=== PATIENT | female | born 1940 | race Caucasian/White ===

== ENCOUNTER → 2016-05-17 | Outpatient (REF) | payer MEDICARE, OTHER ==
[2016-05-17 12:40] LABS: FREE T4 1.37 NG/DL (0.76-1.46)
== END ==
LOC: M LABDRAW1 11:35
PROVIDERS: ATTEND Family Medicine
DX: E03.9 Hypothyroidism, unspecified (principal)

== ENCOUNTER → 2016-06-30 | Outpatient (REF) | payer MEDICARE, OTHER ==
[2016-06-30 10:48] LABS: FREE T4 0.95 NG/DL (0.76-1.46)
== END ==
LOC: M LABDRAW1 10:04
PROVIDERS: ATTEND Family Medicine
DX: E03.9 Hypothyroidism, unspecified (principal)

== ENCOUNTER → 2016-08-19 | Outpatient (REF) | payer MEDICARE, OTHER | LOC: M LAB REF 13:59 | PROVIDERS: ATTEND Physician Assistant | DX: R30.0 Dysuria (principal); R07.0 Pain in throat ==

== ENCOUNTER → 2016-09-08 | Outpatient (REF) | payer MEDICARE, OTHER ==
[2016-09-08 11:11] LABS: FREE T4 1.69 NG/DL (0.76-1.46)
== END ==
LOC: M LABDRAW1 10:37
PROVIDERS: ATTEND Family Medicine
DX: E03.9 Hypothyroidism, unspecified (principal)

== ENCOUNTER → 2016-11-05 | Outpatient (REF) | payer MEDICARE, OTHER ==
[~2016-11-05] MED LIST: ALPH0.156 OU; ASPI1TAB PO; ASPI81TAEC PO; ATOR40TA75 PO; D 101TAB PO; DIGO0.12 PO; FOLI1TAB4 PO; LEVO100T5 PO; THIA100TA PO; TRAV04OPD OU; VERAP80TA PO; VITA200015 PO; VITMTA PO; ZYRT10TA2 PO
[2016-11-05 15:58] LABS: FREE T4 1.32 NG/DL (0.76-1.46)
== END ==
LOC: M LABDRAW1 12:09
PROVIDERS: ATTEND Family Medicine
DX: E03.9 Hypothyroidism, unspecified (principal)

== ENCOUNTER 2016-12-09 01:51 | Inpatient (IN) | payer MEDICARE, BC, OTHER ==
[~2016-12-09] VITALS: Ht 156.2 cm; Wt 58.9 kg
[2016-12-09] MEDS ORDERED: ALPH0.156 OU (02:12)
[2016-12-09] MEDS ORDERED: TRAV04OPD OU (02:12)
[2016-12-09] MEDS ORDERED: ATOR40TA75 PO (02:12)
[2016-12-09] MEDS ORDERED: VITA200015 PO (02:12)
[2016-12-09] MEDS ORDERED: DIGO0.12 PO (02:12)
[2016-12-09] MEDS ORDERED: LEVO100T5 PO (02:12)
[2016-12-09] MEDS ORDERED: VERAP80TA PO (02:12)
[2016-12-09] MEDS ORDERED: ZYRT10TA2 PO (02:12)
[2016-12-09] MEDS ORDERED: ASPI1TAB PO (02:12)
[2016-12-09] MEDS ORDERED: MORPHINE 4 MG/ML 1ML SYRINGE IV ONE ×2 (03:15→07:15)
[2016-12-09] MEDS ORDERED: NS 1,000 ML IV ONE (03:15)
[2016-12-09] MEDS ORDERED: METOCLOPRAMIDE INJ 10MG/2ML VIAL (J2765) IV ONE (03:15)
[2016-12-09 03:26] LABS: BASO % 0.1 % (0.0-1.0); EOS % 0.3 % (0.0-3.0); LARGE UNSTAINED CELL # 0.1 K/mm3 (0.0-0.4); LARGE UNSTAINED CELL % 0.4 % (0.0-4.0); LYMPH # 0.6 K/mm3 (1.5-4.5); LYMPH % 3.8 % (24.0-44.0); MEAN CORPUSCULAR HEMOGLOBIN 34.4 pg (27.0-33.0); MEAN CORPUSCULAR HGB CONC 34.8 g/dl (32.0-36.5); MEAN CORPUSCULAR VOLUME 98.7 fl (80.0-96.0); MONO # 0.6 K/mm3 (0.0-0.8); MONO % 3.8 % (0.0-5.0); NEUTROPHILS % 91.6 % (36.0-66.0); PLATELET COUNT, AUTOMATED 206 k/mm3 (150-450); RED CELL DISTRIBUTION WIDTH 14.6 % (11.5-14.5); WHITE BLOOD COUNT 15.3 K/mm3 (4.0-10.0)
[2016-12-09 03:30] LABS: INR 1.01
[2016-12-09 03:39] LABS: ALKALINE PHOSPHATASE 114 U/L (45-117); ALT/SGPT 121 U/L (12-78); AST/SGOT 152 U/L (15-37); BILIRUBIN,DIRECT 0.4 MG/DL (0.0-0.2); BILIRUBIN,TOTAL 1.1 MG/DL (0.2-1.0); BLOOD UREA NITROGEN 25 MG/DL (7-18); CALCIUM LEVEL 9.4 MG/DL (8.8-10.2); CHLORIDE LEVEL 101 MEQ/L (98-107); CREATININE FOR GFR 0.94 MG/DL (0.55-1.02); GLUCOSE, FASTING 154 MG/DL (83-110); POTASSIUM SERUM 3.9 MEQ/L (3.5-5.1); SODIUM LEVEL 142 MEQ/L (136-145); TOTAL PROTEIN 7.5 GM/DL (6.4-8.2)
[2016-12-09 03:59] LABS: AMYLASE 2422 U/L (25-115)
[2016-12-09] MEDS ORDERED: ISOVUE-370 76% 100ML VIAL (Q9967) As Ordered ONE (04:53)
[2016-12-09] MEDS ORDERED: D 101TAB PO (05:40)
[2016-12-09] MEDS ORDERED: ASPI81TAEC PO (05:40)
[2016-12-09 05:45] LABS: ALBUMIN 3.7 GM/DL (3.2-5.2); ALBUMIN/GLOBULIN RATIO 0.97 (1.00-1.93); ANION GAP 11 MEQ/L (8-16); CARBON DIOXIDE LEVEL 30 MEQ/L (21-32)
--- NOTE | 2016-12-09 05:50 | REPUSA ---
CLINICAL HISTORY: Abdominal pain. TECHNIQUE: Multiple axial, sagittal and coronal CT images were obtained through the abdomen and pelvi s after administration of intravenous contrast material. COMMENTS: Comparison is made to the prior exam performed on 03/13/2006. The liver remains moderately enlarged with decreased attenuation without mass or defect. There ismild biliary ductal dilatation. The spleen is normal. The gallbladder is diffusely thickened and distende d. There is surrounding free fluid and inflammatory fat stranding. Sludge and gallstones are noted in the gallbladder. Peripancreatic inflammatory fat stranding is seen. There is no evidence of adrenal mass. Both kidneys demonstrate prompt and equal nephrograms. The kidneys are normal in size, shape and conf iguration. There is no evidence of renal or ureteral mass. No renal or ureteral calculi are identifie d. There is no hydroureter or hydronephrosis. No evidence for appendicitis. There is no bowel wall thickening. No evidence for small or large felicitas l obstruction. There is no evidence of intrinsic or extrinsic bladder mass. Diffuse thickening of the wall of the bl adder. Images of the lung bases show no evidence of pleural or parenchymal mass. There are no pleural effusi ons. The bony structures are free of lytic or blastic lesions. Multilevel degenerative changes are seen in volving the thoracolumbar spine. Scattered calcifications are seen involving the aorta and major bran ches compatible with atherosclerosis. Metallic clips in the inguinal areas. 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 Unremarkable aortoiliac stent grafts. IMPRESSION: Hepatomegaly. Fatty liver infiltration. Distended gallbladder containing sludge and stones. Diffuse thickening of the wall of the gallbladder. Surrounding inflammatory fat stranding. Acute pancreatitis. No associated drainable fluid collection. Thank you for your kind referral of this patient.
[2016-12-09] MEDS: HEPARIN SOD (PORCINE) 5000 UNITS/ML VIAL SC SCH ×3 (06:00→21:16)
[2016-12-09] MEDS ORDERED: SODIUM CHLORIDE 0.9% 1000 ML IV ONE (07:45)
[2016-12-09] MEDS ORDERED: NS 1,000 ML IV SCH (08:00)
[2016-12-09 08:15] LABS: DIGOXIN LEVEL 0.1 NG/ML (0.5-2.0)
--- NOTE | 2016-12-09 08:25 | REP ---
Right upper quadrant ultrasound: 12/09/2016. Right upper quadrant pain, biliary evaluation. Comparison: 01/22/2013. Findings. Liver is homogeneous in echotexture without focal hepatic mass, intrahepatic biliary dilatation nor perihepatic ascites. The gallbladder with multiple mobile stones with sludge. A sonographic Mancini's sign evident. Wall thickness is 2.3 mm. No pericholecystic fluid. Common duct is 6.9 mm which is upper end of the normal range for this age group. Pancreas visible, was grossly intact. The tail is obscured by gas shadowing. Right kidney is 9.1 x 4 x 3.9 cm without hydronephrosis. Impression: 1. Cholelithiasis and biliary sludge with mobile stones. A positive sonographic Mancini's sign is present. 2. Common duct 6.9 mm without filling defect and no intrahepatic ductal dilatation. Liver grossly unremarkable. No ascites. 3. Visible pancreas and right kidney unremarkable. Signed by Riccardo Gilbert MD 12/09/2016 06:25 P
[2016-12-09] MEDS ORDERED: NORCO, ANEXSIA 5/325MG TABLET (HYDROcodone/ACETAMINOPHEN) PO PRN (08:30)
[2016-12-09] MEDS ORDERED: ONDANSETRON 4MG/2ML VIAL (J2405) IV PRN (08:30)
[2016-12-09] MEDS ORDERED: MOM 30ML SUSPENSION UDC PO PRN (08:30)
[2016-12-09] MEDS ORDERED: MORPHINE 2 MG/ML 1ML SYRINGE IV PRN (08:30)
[2016-12-09] MEDS ORDERED: KETOROLAC 30 MG/ML VIAL (J1885) IV PRN (08:30)
[2016-12-09] MEDS ORDERED: THIAMINE HCL 200 MG/2 ML VIAL (J3411) IV SCH (09:00)
[2016-12-09] MEDS: BRIMONIDINE 0.15% OPHTH SOLN 5 ML OU SCH ×2 (09:00→21:00)
[2016-12-09] MEDS: SENOKOT S TAB PO SCH ×2 (09:00→21:15)
[2016-12-09] MEDS: KCL 20MEQ IN D5/0.45NS 1000ML 1,000 ML IV SCH ×3 (10:07→22:44)
[2016-12-09] MEDS: metroNIDAZOLE 500 MG in APPROPRIATE DILUENT 1 EA IV SCH ×2 (10:08→16:41)
[2016-12-09 10:40] VITALS: BP 138/62
[2016-12-09] MEDS: CIPROFLOXACIN 400 MG in APPROPRIATE DILUENT 1 EA IV SCH ×2 (12:05→21:16)
[2016-12-09] MEDS: PANTOPRAZOLE 40MG INJ (PROTONIX) (C9113) IV SCH (12:05)
[2016-12-09] MEDS: VERAPAMIL 80 MG TAB PO SCH ×4 (12:07→21:15)
[2016-12-09] MEDS: ASPIRIN 81 MG ENTERIC TAB PO SCH (12:07)
[2016-12-09] MEDS: DIGOXIN 0.125 MG TAB PO SCH (12:07)
[2016-12-09] MEDS: ACETAMINOPHEN TAB 650MG DOSE (2X325MG) PO PRN ×2 (12:23→21:16)
[2016-12-09] MEDS: SYNTHROID 100 MCG PO SCH (14:38)
[2016-12-09] MEDS ORDERED: LORazepam 2 MG/ML VIAL (J2060) IV PRN (15:45)
[2016-12-09 16:00] VITALS: BP 116/52
[2016-12-09 16:20] VITALS: BP 139/64
[2016-12-09] MEDS: MULTIVITAMINS/MINERALS THERAP 1 TAB PO SCH (16:42)
[2016-12-09] MEDS: THIAMINE 100 MG TAB PO SCH (16:42)
[2016-12-09] MEDS: FOLIC ACID 1 MG TAB PO SCH (16:42)
[2016-12-09 16:44] LABS: ALBUMIN/GLOBULIN RATIO 1.03 (1.00-1.93); ALKALINE PHOSPHATASE 78 U/L (45-117); ALT/SGPT 80 U/L (12-78); ANION GAP 11 MEQ/L (8-16); AST/SGOT 64 U/L (15-37); BILIRUBIN,TOTAL 1.2 MG/DL (0.2-1.0); BLOOD UREA NITROGEN 18 MG/DL (7-18); CALCIUM LEVEL 8.1 MG/DL (8.8-10.2); CARBON DIOXIDE LEVEL 26 MEQ/L (21-32); CHLORIDE LEVEL 104 MEQ/L (98-107); CREATININE FOR GFR 0.73 MG/DL (0.55-1.02); GLOMERULAR FILTRATION RATE > 60.0 (>39); GLUCOSE, FASTING 127 MG/DL (83-110); POTASSIUM SERUM 3.4 MEQ/L (3.5-5.1); SODIUM LEVEL 141 MEQ/L (136-145); TOTAL PROTEIN 5.9 GM/DL (6.4-8.2)
[2016-12-09] MEDS: OXAZEPAM 10 MG CAP PO SCH (17:09)
[2016-12-09] MEDS ORDERED: FOLIC ACID 1 MG in NS 50 ML IV SCH (18:00)
[2016-12-09] MEDS ORDERED: POTASSIUM CHLORIDE 10 MEQ SR TABLET PO ONE (18:15)
[2016-12-09 20:00] VITALS: BP 104/54
--- NOTE | 2016-12-09 20:28 | CR ---
DATE OF CONSULTATION: 12/09/2016 PRIMARY CARE PROVIDER: Johann Grier MD CARDIOLOGY: Grayson Reza Jr., MD REASON FOR CONSULTATION: Medical management. CHIEF COMPLAINT: Nausea, vomiting, abdominal pain. HISTORY OF PRESENT ILLNESS: This is a 76-year-old female patient with underlying medical history of glaucoma, hypothyroidism, osteopenia, hypertension, dyslipidemia, history of supraventricular tachycardia, and history of abdominal aortic aneurysm with repair and, as per cardiology, grade 2 diastolic dysfunction, presented to the hospital with, since 4 p.m. yesterday, nausea and vomiting, severe epigastric abdominal pain. Had a bowel movement this morning. Last oral intake was prior to 4 p.m. yesterday at dinner. Reported pain as throbbing, about 5-10 over 10, epigastric region, with no alleviating or exacerbating factor. Denies any fevers, chills, chest pain, pressure or discomfort. Patient's daughter also later reported that patient is a heavy drinker, although patient initially denies drinking. Patient denies chest pain, pressure or discomfort. Denies any trouble breathing, headache. Has not vomited in the emergency room. Has not had her gallbladder taken out. Has had an appendectomy. Patient was diagnosed with gallstone pancreatitis, subsequently admitted under Dr. Dinero's service. Symptoms seem to be getting better in emergency room. ALLERGIES: CEFDINIR, DEXAMETHASONE, ERYTHROMYCIN, SYNTHROID GENERIC BRAND, SODIUM BENZOATE, SULFA DRUGS, TOBRAMYCIN. PAST MEDICAL HISTORY: 1. Abdominal aortic aneurysm. 2. Glaucoma. 3. Hypothyroidism. 4. Osteopenia. 5. Hypertension. 6. Supraventricular tachycardia. 7. Dyslipidemia. PAST SURGICAL HISTORY: Lens implant, endovascular repair of abdominal aortic aneurysm in 2013, thyroidectomy, tubal ligation, appendectomy. SOCIAL HISTORY: Smokes one pack per day for 25 years, refused nicotine patch. Initially denies alcohol drinking, but as per daughter patient drinks heavily, unknown exact quantity. Ambulating with a cane. REVIEW OF SYSTEMS: Reported epigastric abdominal pain, nausea, vomiting. All other review of systems are negative. MEDICATIONS: - aspirin 81 mg by mouth daily - Lipitor 40 mg by mouth daily - Alphagan eye drops twice a day - Zyrtec 10 mg by mouth nightly - vitamin D 3000 units by mouth every evening - digoxin 0.125 by mouth daily - Synthroid 100 mcg by mouth daily - Travatan eye drops nightly - verapamil 80 mg by mouth nightly VITAL SIGNS: Temperature 99.2, pulse 88, respirations 18, blood pressure 139/64, pulse oximetry 96% on two liters nasal cannula. PHYSICAL EXAMINATION: GENERAL: Patient alert and oriented times three, in no acute distress. HEENT: Normocephalic, atraumatic. Moist mucous membranes. CARDIAC: Regular rate and rhythm. Mild tachycardia. ABDOMEN: Soft, diffuse tenderness with rebound, no guarding, mostly epigastric and periumbilical. EXTREMITIES: No clubbing, cyanosis, or edema. Dorsalis pedis (DP), posterior tibialis (PT) pulses intact bilateral. NEUROLOGIC: No focal deficits. Cranial nerves II-XII grossly intact. Able to move all four extremities. LABORATORY DATA: WBC 15.3, hemoglobin and hematocrit 14.9/42.7, platelets 206. Chemistry: Sodium 141, potassium 3.4, chloride 104, bicarbonate 26, BUN 18, creatinine 0.73, bilirubin 1.2, AST 64, ALT 80, lipase initially 22,000, currently 6317. EKG shows sinus tachycardia at 107, no ST segment changes. ASSESSMENT AND PLAN: This is a 76-year-old female patient with underlying medical history of hypothyroidism, glaucoma, osteopenia, hypertension, supraventricular tachycardia, dyslipidemia, abdominal aortic aneurysm, admitted under surgical service for gallstone pancreatitis. 1. Gallstone pancreatitis. Management as per general surgery. Ultrasound has been appreciated. Cipro and Flagyl as per general surgery. IV fluids. Followup electrolytes. Strict intake and output, daily weight. Pain regimen as per general surgery. Possibly will need cholecystectomy once patient is improved. IV fluids, pain medication as per primary team. Patient's baseline, as per patient, can walk half a mile without any problem, occasionally uses a cane. Discussed with patient's latex ribbon machine operator, Dr. Reza. Recent echo shows grade 2 diastolic dysfunction, otherwise stress test done 4 years ago, no stents and no heart attack in the past, but the main concern as per Dr. Reza is perioperative atrial fibrillation. Although patient does not have a formal diagnosis of atrial fibrillation, Dr. Reza believes that patient is at risk for having paroxysmal atrial fibrillation and would like us to keep the patient on monitor. EKG is appreciated. Patient has a METs greater than 2. Patient is intermediate risk for intermediate risk procedure. 2. Glaucoma. Continue home medication. 3. Hypothyroidism. Patient needs brand name Synthroid which patient will bring from home. Thyroid function test has been ordered. 4. History of alcohol abuse as per daughter. Will monitor for withdrawal. Last drink as per daughter was 2 days ago. Serax standing with Ativan IV as needed. Thiamine, folate, and multivitamin. Telemetry monitoring. 5. Smoking. Counseling provided. Refused nicotine patch. 6. Osteopenia. Continue current medication. 7. Hypertension. Continue current medication. 8. Dyslipidemia. Continue current medication. 9. History of supraventricular tachycardia. Telemetry monitoring. Continue digoxin, level appreciated. Continue verapamil. 10. Deep venous thrombosis (DVT) prophylaxis. Heparin subcutaneous. DISPOSITION PLANNING: Management as per surgery.
[2016-12-09] MEDS ORDERED: LATANOPROST 0.005% OPHTH SOLN 2.5 ML OU SCH (21:00)
[2016-12-09] MEDS: CETIRIZINE (ZyrTEC) 10 MG TAB PO SCH (21:14)
[2016-12-09] MEDS: VITAMIN D 1,000 INTERNATIONAL UNITS TABLET PO SCH (21:14)
[2016-12-09] MEDS: ATORVASTATIN 20 MG TAB PO SCH (21:14)
--- NOTE | 2016-12-09 21:36 | ECGEPIP ---
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
[2016-12-10] VITALS: BP 106/49
[2016-12-10] MEDS: metroNIDAZOLE 500 MG in APPROPRIATE DILUENT 1 EA IV SCH ×3 (00:06→16:42)
[2016-12-10] MEDS: KCL 20MEQ IN D5/0.45NS 1000ML 1,000 ML IV SCH ×3 (03:13→19:19)
[2016-12-10 04:00] VITALS: BP 110/54
[2016-12-10 04:23] LABS: MEAN CORPUSCULAR HEMOGLOBIN 33.8 pg (27.0-33.0); MEAN CORPUSCULAR HGB CONC 33.8 g/dl (32.0-36.5); RED CELL DISTRIBUTION WIDTH 14.8 % (11.5-14.5); WHITE BLOOD COUNT 11.7 K/mm3 (4.0-10.0)
[2016-12-10 04:51] LABS: ALBUMIN 2.6 GM/DL (3.2-5.2); ALKALINE PHOSPHATASE 68 U/L (45-117); ALT/SGPT 56 U/L (12-78); ANION GAP 6 MEQ/L (8-16); AST/SGOT 41 U/L (15-37); BILIRUBIN,TOTAL 1.3 MG/DL (0.2-1.0); BLOOD UREA NITROGEN 11 MG/DL (7-18); CALCIUM LEVEL 7.8 MG/DL (8.8-10.2); CARBON DIOXIDE LEVEL 28 MEQ/L (21-32); CHLORIDE LEVEL 105 MEQ/L (98-107); CREATININE FOR GFR 0.71 MG/DL (0.55-1.02); GLOMERULAR FILTRATION RATE > 60.0 (>39); GLUCOSE, FASTING 138 MG/DL (83-110); MAGNESIUM LEVEL 1.7 MG/DL (1.8-2.4); POTASSIUM SERUM 4.2 MEQ/L (3.5-5.1); SODIUM LEVEL 139 MEQ/L (136-145); T UPTAKE 39 % (30-39); THYROXINE (T4) 11.5 UG/DL (4.5-12.0); TOTAL PROTEIN 5.5 GM/DL (6.4-8.2)
[2016-12-10] MEDS: SYNTHROID 100 MCG PO SCH (05:45)
[2016-12-10] MEDS: HEPARIN SOD (PORCINE) 5000 UNITS/ML VIAL SC SCH ×3 (05:47→20:08)
[2016-12-10] MEDS: OXAZEPAM 10 MG CAP PO SCH ×5 (05:47→23:20)
[2016-12-10 08:00] VITALS: BP 149/64
[2016-12-10] MEDS ORDERED: MAG SULF 1GM/100ML (MAG RUN) 1 GM in APPROPRIATE DILUENT 1 EA IV ONE (08:00)
--- NOTE | 2016-12-10 08:12 | HPE ---
DATE OF ADMISSION: 12/09/2016 CHIEF COMPLAINT: Abdominal pain. HISTORY OF PRESENT ILLNESS: The patient 76-year-old female who presents with onset of abdominal pain in her midabdomen around 04:00 p.m. yesterday. Pain got progressively worse overnight so she came into the emergency room for evaluation. She had about four episodes of emesis with nausea that subsided since she has been here. Her pain has improved since she has been the emergency room, but she is not sure if it is getting better or if it is due to the morphine. She has never had any symptoms like this in the past. No fevers or chills. No changes in bowel movements or urination. No recent travel. No recent trauma to the abdomen. Her vitals have been somewhat stable; however, her white blood cell count was elevated and labs and CT scan show that she has likely gallstone pancreatitis. Therefore, I was called to evaluate. She has no prior history or knowledge of any gallstone disease. PAST MEDICAL HISTORY: 1. Hypothyroidism. 2. Coronary disease 3. Hyperlipidemia 4. Hypertension. PAST SURGICAL HISTORY: Endovascular aortic aneurysm repair, appendectomy, bilateral cataract surgery total thyroidectomy. ALLERGIES: Multiple includes CEFDINIR, DEXAMETHASONE, ERYTHROMYCIN, LEVOTHYROXIN, SODIUM BENZOATE, SULFA DRUGS, TOBRAMYCIN. HOME MEDICATIONS: Please see med rec. SOCIAL HISTORY: Denies drug, alcohol, tobacco abuse. FAMILY HISTORY: Noncontributory. REVIEW OF SYSTEMS: Pertinent positives and negatives see in history of present illness. PHYSICAL EXAMINATION: General: The patient is alert and oriented x3. No acute distress. VITALS: Temperature 98.5, pulse 107, respirations 18, blood pressure 135/62, pulse oximetry 98% room air. HEENT: Pupils equal round reactive accommodation. HEART: S1-S2 regular rate and rhythm. LUNGS: Clear to auscultation bilaterally. ABDOMEN: Soft, tender to palpation epigastric and right upper quadrant. Mild guarding and no signs of generalized peritonitis. EXTREMITIES: No clubbing, cyanosis or edema. LABORATORY DATA: White count 15.3, hemoglobin 14.9, platelets 206, sodium 42, potassium 3.9, creatinine 0.94, total bilirubin 1.1, direct bilirubin 0.40, AST 152, ALT 121, lipase 22,568. IMAGING STUDIES: CT abdomen and pelvis shows distended gallbladder with stones and sludge, diffuse thickening of wall of gallbladder, acute pancreatitis with surrounding inflammatory fat stranding. ASSESSMENT/PLAN: The patient is 76-year-old female with signs and symptoms consistent with gallstone pancreatitis. She also has significant past medical history for hypertension, hyperlipidemia, hypothyroidism, coronary artery disease. Recommendation at this time is to treat with antibiotics, IV fluids, keep her nothing by mouth and monitor her labs closely. If her bilirubins and liver enzymes and lipase returned to normal, then she will be scheduled for a laparoscopic cholecystectomy prior to discharge from the hospital. However, if there are still signs of choledocholithiasis and her bilirubins do not want to trend down, then we will have to consult gastroenterology for possible endoscopic retrograde cholangiopancreatography (ERCP). If gastroenterology is not available, then she may have to be transferred somewhere where she have that completed. Due to her multiple medical problems, will also have medicine see her today just to make sure that she is stable and optimized for surgical procedures. She will have heparin subcutaneous and Protonix for gastrointestinal (GI) and deep vein thrombosis (DVT) prophylaxis. No bedrest; she can ambulate as much as possible and will continue to watch her.
[2016-12-10] MEDS: FOLIC ACID 1 MG TAB PO SCH (08:46)
[2016-12-10] MEDS: DIGOXIN 0.125 MG TAB PO SCH (08:46)
[2016-12-10] MEDS: THIAMINE 100 MG TAB PO SCH (08:46)
[2016-12-10] MEDS: SENOKOT S TAB PO SCH ×2 (08:46→20:08)
[2016-12-10] MEDS: ASPIRIN 81 MG ENTERIC TAB PO SCH (08:46)
[2016-12-10] MEDS: VERAPAMIL 80 MG TAB PO SCH ×4 (08:47→20:07)
[2016-12-10] MEDS: BRIMONIDINE 0.15% OPHTH SOLN 5 ML OU SCH (08:47)
[2016-12-10] MEDS: MULTIVITAMINS/MINERALS THERAP 1 TAB PO SCH (08:50)
[2016-12-10] MEDS: PANTOPRAZOLE 40MG INJ (PROTONIX) (C9113) IV SCH (08:51)
[2016-12-10] MEDS: ACETAMINOPHEN TAB 650MG DOSE (2X325MG) PO PRN (09:14)
[2016-12-10] MEDS: CIPROFLOXACIN 400 MG in APPROPRIATE DILUENT 1 EA IV SCH ×2 (10:09→20:08)
[2016-12-10 12:00] VITALS: BP 121/58
[2016-12-10] MEDS: EYE OU SCH ×2 (13:00→20:09)
[2016-12-10] MEDS: BRIMONIDINE 0.1% OU SCH (13:00)
[2016-12-10 16:00] VITALS: BP 120/59
[2016-12-10] MEDS ORDERED: BRIMONIDINE 0.1% OPHTH SOLN 5 ML OU SCH (16:00)
[2016-12-10 20:00] VITALS: BP 126/58
[2016-12-10] MEDS: ATORVASTATIN 20 MG TAB PO SCH (20:07)
[2016-12-10] MEDS: VITAMIN D 1,000 INTERNATIONAL UNITS TABLET PO SCH (20:08)
[2016-12-10] MEDS: CETIRIZINE (ZyrTEC) 10 MG TAB PO SCH (20:08)
[2016-12-10] MEDS: TRAVATAN Z 0.004% OU SCH (20:09)
--- NOTE | 2016-12-10 21:04 | IPN ---
DATE: 12/10/2016 SUBJECTIVE: Patient is seen and examined. No acute events overnight. Reported resolution of abdominal pain. Denies nausea or vomiting overnight. Denies any fevers or chill. Denies any chest pain, pressure, discomfort. VITAL SIGNS: Temperature 98.2, pulse 79, respirations 18, blood pressure 120/59. Pulse oximetry 97% on room air. LABORATORY DATA: WBC 17.7, hemoglobin and hematocrit 12.3 over 36.5, platelets 156. Chemistry: Sodium 139, potassium 4.2, chloride 105, bicarbonate 28, BUN 11, creatinine 0.71, magnesium 1.7. PHYSICAL EXAMINATION: GENERAL: Patient alert and oriented times three. In no acute distress. HEENT: Normocephalic, atraumatic. PULMONARY: Bilaterally clear to auscultation. CARDIAC: Regular rate and rhythm. No longer tachycardia. S1, S2. ABDOMEN: Soft. Minimal tenderness diffusely to palpation. No rebound, no guarding. EXTREMITIES: No clubbing, cyanosis or edema. NEUROLOGIC: No focal deficit. ASSESSMENT AND PLAN: This is a 76-year-old female patient with underlying medical history of hypothyroidism, glaucoma, osteopenia, hypertension, supraventricular tachycardia, dyslipidemia, abdominal aortic aneurysm, admitted under surgical service for gallstone pancreatitis. 1. Gallstone pancreatitis. Management as per general surgery, Solomon Pantoja as per general surgery. Intravenous (IV) fluids. Followup electrolytes. Strict intake and output. Patient going on clear liquid diet. Pain regimen as per general surgery. Possible cholecystectomy once patient improves. IV fluids. Pain medication as per general surgery. Patient baseline can walk half a mile without any problem, occasionally uses a cane. Discussed with business support associate, Dr. Reza. Recent echo shows grade 2 diastolic dysfunction; otherwise, stress test done four years ago was normal. No stents in the past, no heart attack in the past, no strokes. Dr. Reza recommended monitoring the patient for perioperative atrial fibrillation under telemetry although patient does not have a formal diagnosis of atrial fibrillation as per Dr. Reza. The patient has METS greater than four. 2. Glaucoma. Continue home medication. 3. Hypothyroidism. Patient needs brand-name Synthroid. Followup thyroid function test. Will bring medication from home. 4. History of alcohol abuse as per daughter. Will monitor for withdrawal. Last drink as per daughter was two days ago. Serax standing and Ativan as needed. Folate, thiamine, and multivitamin. Telemetry monitoring. 5. Smoking. Counseling provided. Refused nicotine patch. 6. Osteopenia. Continue current medication. 7. Hypertension. Continue current medication. 8. Dyslipidemia. Continue current medication. 9. History of supraventricular tachycardia. Telemetry monitoring. Continue digoxin, verapamil. Digoxin level appreciated. 10. Deep venous thrombosis (DVT) prophylaxis. Heparin subcutaneous. DISPOSITION PLANNING: Management as per surgery.
[2016-12-11] VITALS: BP 116/57
[2016-12-11] MEDS: metroNIDAZOLE 500 MG in APPROPRIATE DILUENT 1 EA IV SCH ×3 (00:02→17:32)
[2016-12-11] MEDS: KCL 20MEQ IN D5/0.45NS 1000ML 1,000 ML IV SCH ×4 (01:24→22:10)
[2016-12-11 04:50] LABS: MEAN CORPUSCULAR HEMOGLOBIN 34.4 pg (27.0-33.0); MEAN CORPUSCULAR HGB CONC 34.7 g/dl (32.0-36.5); MEAN CORPUSCULAR VOLUME 99.4 fl (80.0-96.0); RED CELL DISTRIBUTION WIDTH 14.3 % (11.5-14.5); WHITE BLOOD COUNT 10.1 K/mm3 (4.0-10.0)
[2016-12-11] MEDS: OXAZEPAM 10 MG CAP PO SCH ×4 (04:55→23:56)
[2016-12-11 05:07] LABS: ALBUMIN 2.5 GM/DL (3.2-5.2); ALBUMIN/GLOBULIN RATIO 0.78 (1.00-1.93); ALKALINE PHOSPHATASE 67 U/L (45-117); ALT/SGPT 41 U/L (12-78); ANION GAP 7 MEQ/L (8-16); AST/SGOT 22 U/L (15-37); BILIRUBIN,TOTAL 0.9 MG/DL (0.2-1.0); BLOOD UREA NITROGEN 3 MG/DL (7-18); CALCIUM LEVEL 7.6 MG/DL (8.8-10.2); CARBON DIOXIDE LEVEL 26 MEQ/L (21-32); CHLORIDE LEVEL 107 MEQ/L (98-107); CREATININE FOR GFR 0.58 MG/DL (0.55-1.02); GLOMERULAR FILTRATION RATE > 60.0 (>39); GLUCOSE, FASTING 137 MG/DL (83-110); MAGNESIUM LEVEL 1.9 MG/DL (1.8-2.4); POTASSIUM SERUM 3.8 MEQ/L (3.5-5.1); SODIUM LEVEL 140 MEQ/L (136-145); TOTAL PROTEIN 5.7 GM/DL (6.4-8.2)
[2016-12-11] MEDS: SYNTHROID 100 MCG PO SCH (05:36)
[2016-12-11] MEDS: HEPARIN SOD (PORCINE) 5000 UNITS/ML VIAL SC SCH ×3 (05:38→21:06)
[2016-12-11 08:05] VITALS: BP 137/63
[2016-12-11] MEDS: DIGOXIN 0.125 MG TAB PO SCH (09:17)
[2016-12-11] MEDS: FOLIC ACID 1 MG TAB PO SCH (09:17)
[2016-12-11] MEDS: PANTOPRAZOLE 40MG INJ (PROTONIX) (C9113) IV SCH (09:17)
[2016-12-11] MEDS: ASPIRIN 81 MG ENTERIC TAB PO SCH (09:17)
[2016-12-11] MEDS: SENOKOT S TAB PO SCH ×2 (09:18→21:05)
[2016-12-11] MEDS: VERAPAMIL 80 MG TAB PO SCH ×4 (09:18→21:05)
[2016-12-11] MEDS: MULTIVITAMINS/MINERALS THERAP 1 TAB PO SCH (09:18)
[2016-12-11] MEDS: THIAMINE 100 MG TAB PO SCH (09:18)
[2016-12-11] MEDS: BRIMONIDINE 0.1% OU SCH ×2 (09:20→13:48)
[2016-12-11] MEDS: EYE OU SCH ×3 (09:20→21:08)
[2016-12-11] MEDS: CIPROFLOXACIN 400 MG in APPROPRIATE DILUENT 1 EA IV SCH ×2 (10:16→22:05)
[2016-12-11 12:05] VITALS: BP 132/64
[2016-12-11 15:51] VITALS: BP 138/62
[2016-12-11] MEDS: ACETAMINOPHEN TAB 650MG DOSE (2X325MG) PO PRN (17:35)
[2016-12-11 20:00] VITALS: BP 141/66
[2016-12-11] MEDS: ATORVASTATIN 20 MG TAB PO SCH (21:04)
[2016-12-11] MEDS: CETIRIZINE (ZyrTEC) 10 MG TAB PO SCH (21:05)
[2016-12-11] MEDS: VITAMIN D 1,000 INTERNATIONAL UNITS TABLET PO SCH (21:05)
[2016-12-11] MEDS: TRAVATAN Z 0.004% OU SCH (21:08)
--- NOTE | 2016-12-11 21:31 | IPN ---
DATE: 12/11/2016 SUBJECTIVE: Patient is seen and examined. Reported much better. Abdominal pain seems to have resolved, only with minimal discomfort. Denies any fevers, chills, chest pain, pressure, discomfort. VITAL SIGNS: Temperature 99.2, pulse 78, respirations 24, blood pressure 138/62, Pulse oximetry 96% on room air. LABORATORY DATA: WBC 10.1, hemoglobin and hematocrit 11.8/34.2, platelets 161. Chemistry: Sodium 140, potassium 3.8, chloride 107, bicarbonate 26, BUN 3, creatinine 0.58. PHYSICAL EXAMINATION: GENERAL: Patient alert and oriented times three. In no acute distress. HEENT: Normocephalic, atraumatic. PULMONARY: Bilaterally clear to auscultation. CARDIAC: Regular rate and rhythm. Normal S1, S2. ABDOMEN: Soft. Minimal discomfort. No significant tenderness. No rebound. No guarding. EXTREMITIES: No clubbing, cyanosis or edema. NEUROLOGIC: No focal deficit. ASSESSMENT AND PLAN: This is a 76-year-old female patient with underlying medical history of hypothyroidism, glaucoma, osteopenia, hypertension, supraventricular tachycardia, dyslipidemia, abdominal aortic aneurysm, admitted under surgical service for gallstone pancreatitis. 1. Gallstone pancreatitis. Management as per general surgery, Cipro, Flagyl and intravenous (IV) fluids. Followup electrolytes. Strict intake and output. Patient is tolerating clear liquid diet. Pain regimen as per general surgery. Possible cholecystectomy once patient improves. IV fluids. Pain medication. Patient baseline can walk half a mile without any problem, occasionally uses a cane. Discussed with digester hand, Dr. Reza. Recent echo shows grade 2 diastolic dysfunction; otherwise, stress test done 4 years ago was normal. No stents in the past, no heart attack in the past, and no strokes. Dr. Reza recommended telemetry monitoring for perioperative atrial fibrillation although patient never had a formal diagnosis of atrial fibrillation as per Dr. Reza. The patient has METS greater than four. Currently medically optimized for surgery. 2. Glaucoma. Continue home medication. 3. Hypothyroidism. Patient needs brand-name Synthroid. Followup thyroid function appreciated. Continue home Synthroid. 4. History of alcohol abuse, as per daughter. We will monitor for withdrawal. Serax standing and Ativan as needed. Folate, thiamine, and multivitamin. Telemetry monitoring. 5. Smoking. Counseling provided. Refused nicotine patch. 6. Osteopenia. Continue current medication. 7. Hypertension. Continue current medication. 8. Dyslipidemia. Continue current medication. 9. Supraventricular tachycardia. Telemetry monitoring. Continue digoxin, verapamil. Digoxin level appreciated. 10. Deep venous thrombosis (DVT) prophylaxis. Heparin subcutaneous. DISPOSITION PLANNING: Management as per surgery.
[2016-12-12] VITALS (7 sets, daily range): BP systolic 124–146; BP diastolic 58–70
[2016-12-12] MEDS: metroNIDAZOLE 500 MG in APPROPRIATE DILUENT 1 EA IV SCH ×3 (01:08→16:36)
[2016-12-12 04:51] LABS: MEAN CORPUSCULAR HEMOGLOBIN 33.8 pg (27.0-33.0); MEAN CORPUSCULAR HGB CONC 33.9 g/dl (32.0-36.5); MEAN CORPUSCULAR VOLUME 99.7 fl (80.0-96.0); RED CELL DISTRIBUTION WIDTH 14.7 % (11.5-14.5); WHITE BLOOD COUNT 10.4 K/mm3 (4.0-10.0)
[2016-12-12 05:08] LABS: ALBUMIN 2.6 GM/DL (3.2-5.2); ALBUMIN/GLOBULIN RATIO 0.76 (1.00-1.93); ALKALINE PHOSPHATASE 70 U/L (45-117); ALT/SGPT 32 U/L (12-78); ANION GAP 10 MEQ/L (8-16); AST/SGOT 17 U/L (15-37); BILIRUBIN,TOTAL 0.8 MG/DL (0.2-1.0); BLOOD UREA NITROGEN 2 MG/DL (7-18); CALCIUM LEVEL 7.8 MG/DL (8.8-10.2); CARBON DIOXIDE LEVEL 23 MEQ/L (21-32); CHLORIDE LEVEL 109 MEQ/L (98-107); CREATININE FOR GFR 0.63 MG/DL (0.55-1.02); GLOMERULAR FILTRATION RATE > 60.0 (>39); GLUCOSE, FASTING 124 MG/DL (83-110); MAGNESIUM LEVEL 1.8 MG/DL (1.8-2.4); SODIUM LEVEL 142 MEQ/L (136-145)
[2016-12-12] MEDS: OXAZEPAM 10 MG CAP PO SCH ×2 (05:53→12:00)
[2016-12-12] MEDS: HEPARIN SOD (PORCINE) 5000 UNITS/ML VIAL SC SCH ×3 (05:56→20:53)
[2016-12-12] MEDS: SYNTHROID 100 MCG PO SCH (05:56)
[2016-12-12] MEDS: KCL 20MEQ IN D5/0.45NS 1000ML 1,000 ML IV SCH ×4 (06:51→19:55)
[2016-12-12] MEDS: PANTOPRAZOLE 40MG INJ (PROTONIX) (C9113) IV SCH (08:38)
[2016-12-12] MEDS: EYE OU SCH ×3 (08:38→20:54)
[2016-12-12] MEDS: BRIMONIDINE 0.1% OU SCH ×2 (08:38→13:18)
[2016-12-12] MEDS: MULTIVITAMINS/MINERALS THERAP 1 TAB PO SCH (08:39)
[2016-12-12] MEDS: THIAMINE 100 MG TAB PO SCH (08:39)
[2016-12-12] MEDS: SENOKOT S TAB PO SCH ×2 (08:41→20:52)
[2016-12-12] MEDS: ASPIRIN 81 MG ENTERIC TAB PO SCH (08:41)
[2016-12-12] MEDS: FOLIC ACID 1 MG TAB PO SCH (08:41)
[2016-12-12] MEDS: DIGOXIN 0.125 MG TAB PO SCH (08:41)
[2016-12-12] MEDS: VERAPAMIL 80 MG TAB PO SCH ×4 (08:41→20:53)
[2016-12-12] MEDS: CIPROFLOXACIN 400 MG in APPROPRIATE DILUENT 1 EA IV SCH ×2 (09:04→21:08)
--- NOTE | 2016-12-12 16:01 | IPN ---
DATE: 12/12/2016 SUBJECTIVE: Patient seen and examined. No acute events overnight. Tolerating diet. Comfortable. Denies any abdominal, nausea, vomiting, chest pain, pressure, discomfort. VITAL SIGNS: Temperature 98.4, pulse 88, respirations 18, blood pressure 124/58. Pulse oximetry 96% on room air. LABORATORY DATA: WBC 10.4, hemoglobin and hematocrit 12.2 over 35.9, platelets 180. Chemistry: Sodium 142, potassium 4.0, chloride 109, bicarbonate 23, BUN 2.0, creatinine 0.6. PHYSICAL EXAMINATION: GENERAL: Patient alert and oriented times three, in no acute distress. HEENT: Normocephalic, atraumatic. PULMONARY: Bilaterally clear to auscultation. CARDIAC: Regular rate and rhythm. Normal S1, S2. ABDOMEN: Soft, nontender. Positive bowel sounds. EXTREMITIES: No clubbing, cyanosis or edema. ASSESSMENT AND PLAN: This is a 76-year-old female patient with underlying medical history of hypothyroidism, glaucoma, osteopenia, hypertension, supraventricular tachycardia, dyslipidemia, abdominal aortic aneurysm, admitted under surgical service for gallstone pancreatitis. 1. Gallstone pancreatitis. Management as per general surgery. Cipro, Flagyl, intravenous (IV) fluids. Followup electrolytes. Strict intake and output. Patient currently on clear liquid diet. Diet as per surgery. Pain regimen as per surgery. Possible cholecystectomy early next week. IV fluids. Pain medication. Patient baseline able to walk a half mile without any problems. Occasionally uses cane. Case discussed with patient's shear helper, Dr. Reza. Recent echocardiogram shows grade 2 diastolic dysfunction, otherwise stress test done four years ago was normal. No stent in the past. No heart attack. No stroke. Dr. Reza recommended telemetry monitoring for perioperative atrial fibrillation, although the patient never had a formal diagnosis of atrial fibrillation. As per Dr. eRza, the patient had METS greater than four. Currently medically optimized. 2. Glaucoma. Continue home medication. 3. Hypothyroidism. The patient needs brand-name Synthroid. Continue current medication. 4. History of alcohol abuse as per daughter. Withdrawal precautions. Serax as needed. Folic acid, thiamine, multivitamin. Telemetry monitoring. 5. Smoking. Counseling provided. Refused nicotine patch. 6. Osteoporosis. Continue current medication. 7. Hypertension. Continue current medication. 8. Dyslipidemia. Continue current medication. 9. Supraventricular tachycardia. Telemetry monitoring. Continue digoxin, verapamil. Dig level appreciated on admission. 10. Deep venous thrombosis (DVT) prophylaxis. Heparin subcutaneous. DISPOSITION: Management as per surgery.
[2016-12-12] MEDS: CETIRIZINE (ZyrTEC) 10 MG TAB PO SCH (20:52)
[2016-12-12] MEDS: VITAMIN D 1,000 INTERNATIONAL UNITS TABLET PO SCH (20:52)
[2016-12-12] MEDS: ATORVASTATIN 20 MG TAB PO SCH (20:52)
[2016-12-12] MEDS: TRAVATAN Z 0.004% OU SCH (20:54)
[2016-12-13] MEDS: metroNIDAZOLE 500 MG in APPROPRIATE DILUENT 1 EA IV SCH ×2 (00:59→09:37)
[2016-12-13 05:21] LABS: MEAN CORPUSCULAR HEMOGLOBIN 33.6 pg (27.0-33.0); MEAN CORPUSCULAR HGB CONC 34.4 g/dl (32.0-36.5); MEAN CORPUSCULAR VOLUME 97.8 fl (80.0-96.0); RED CELL DISTRIBUTION WIDTH 14.3 % (11.5-14.5); WHITE BLOOD COUNT 10.1 K/mm3 (4.0-10.0)
[2016-12-13 05:45] LABS: ALBUMIN 2.6 GM/DL (3.2-5.2); ALBUMIN/GLOBULIN RATIO 0.81 (1.00-1.93); ALKALINE PHOSPHATASE 65 U/L (45-117); ALT/SGPT 25 U/L (12-78); ANION GAP 9 MEQ/L (8-16); AST/SGOT 10 U/L (15-37); BILIRUBIN,TOTAL 0.6 MG/DL (0.2-1.0); BLOOD UREA NITROGEN 4 MG/DL (7-18); CALCIUM LEVEL 7.9 MG/DL (8.8-10.2); CARBON DIOXIDE LEVEL 24 MEQ/L (21-32); CHLORIDE LEVEL 107 MEQ/L (98-107); CREATININE FOR GFR 0.65 MG/DL (0.55-1.02); GLOMERULAR FILTRATION RATE > 60.0 (>39); GLUCOSE, FASTING 119 MG/DL (83-110); MAGNESIUM LEVEL 1.8 MG/DL (1.8-2.4); SODIUM LEVEL 140 MEQ/L (136-145); TOTAL PROTEIN 5.8 GM/DL (6.4-8.2)
[2016-12-13] MEDS: SYNTHROID 100 MCG PO SCH (05:47)
[2016-12-13 07:57] VITALS: BP 143/88
[2016-12-13] MEDS: EYE OU SCH (09:37)
[2016-12-13] MEDS: PANTOPRAZOLE 40MG INJ (PROTONIX) (C9113) IV SCH (09:37)
[2016-12-13] MEDS: BRIMONIDINE 0.1% OU SCH (09:37)
[2016-12-13] MEDS: ASPIRIN 81 MG ENTERIC TAB PO SCH (09:37)
[2016-12-13] MEDS: FOLIC ACID 1 MG TAB PO SCH (09:37)
[2016-12-13 09:38] VITALS: BP 143/88
[2016-12-13] MEDS: MULTIVITAMINS/MINERALS THERAP 1 TAB PO SCH (09:38)
[2016-12-13] MEDS: SENOKOT S TAB PO SCH (09:38)
[2016-12-13] MEDS: VERAPAMIL 80 MG TAB PO SCH (09:38)
[2016-12-13] MEDS: DIGOXIN 0.125 MG TAB PO SCH (09:38)
[2016-12-13] MEDS: THIAMINE 100 MG TAB PO SCH (09:38)
[2016-12-13] MEDS: KCL 20MEQ IN D5/0.45NS 1000ML 1,000 ML IV SCH (09:39)
[2016-12-13] MEDS: CIPROFLOXACIN 400 MG in APPROPRIATE DILUENT 1 EA IV SCH (10:00)
[2016-12-13] MEDS ORDERED: THIA100TA PO (10:50)
[2016-12-13] MEDS ORDERED: VITMTA PO (10:50)
[2016-12-13] MEDS ORDERED: FOLI1TAB4 PO (10:50)
[2016-12-13] MEDS ORDERED: OXAZEPAM 10 MG CAP PO PRN (12:00)
--- NOTE | 2016-12-14 01:17 | IPNPDOC ---
Text Note Date of Service The patient was seen on 12/13/16. NOTE Subjective: Patient seen and examined at bedside. She denies any acute complaints overnight. Denies fevers, chills, chest pain, SOB, cough, nausea, vomiting, abdominal pain, diarrhea, constipation, rashes/lesions anywhere, or edema. As per nurse of patient, patient apparently has spoken to Dr. Dinero and has elected to go home today to follow up with him on for an office visit. She will discuss scheduling with him for a laparoscopic cholecystectomy in a couple of weeks. Objective: Please see vital signs and physical exam below. Laboratory data: Labs were remarkable for WBC of 10.1 down from 10.4, a BUN of 4, a glucose of 119. Lipase was elevated at 608 today from 577 yesterday. TSH on 12/10 was 0.185. Free T4 was: 4.5. Please see below for full labs. Microbiology: Urine cx: no growth Imaging: Abdominal U/S: cholelithiasis and biliary sludge with mobile stones and (+) sonographic alegria's sign. Common duct 6.9 mm without filling defect and no intrahepatic ductal dilitation. Liver grossly unremarkable. No ascites. Visible pancreas and R kidney unremarkable. CT Abdomen/Pelvis: Hepatomegaly, fatty liver infiltration, distended gallbladder with sludge and stones, diffuse gallbladder wall thickening, surrounding inflammatory fat stranding, acute pancreatitis, no associated drainable fluid collection. Assessment/Plan: 76 yo F is presenting for gallstone pancreatitis being managed by General Surgery--Dr. Teodoro Dinero. Hospitalist service was consulted for medical management of patient's chronic medical issues. Gallstone Pancreatitis: management as per General Surgery. Patient has been treated with ciprofloxacin, flagyl, IVF, strict I's/O's, NPO diet, pain control per surgery. Patient was to have cholecystectomy procedure today. However, patient has had a discussion with Dr. Dinero that she would like to have the option of elective cholecystectomy and follow up with Dr. Dinero as an outpatient for now when she was presented the option for elective procedure by Dr. Dinero. When I spoke to her, she has confirmed that Dr. Dinero will be sending her home later today. She will be changed to low fat diet from NPO diet as per Dr. Dinero. HTN: continue verapamil Hypothyroidism: continue brand-name synthroid EtOH abuse: patient on PRN serax while in hospital. Also on folic acid, vitamin B1, and multivitamin Dyslipidemia: continue atorvastatin Supraventricular tachycardia: continue digoxin, verapamil. Osteoporosis: continue vitamin D 3000 units qPM and multivitamin Tobacco Use Disorder: counseled on smoking cessation during hospitalization. Apparently, refused nicotine patch. Glaucoma: continue home medications. DVT ppx: SC heparin Immunizations as per protocol Disposition: as per general surgery My preceptor for this patient encounter was Dr. Guillaume Multani, and was physically present in the building during the encounter and was fully available. As needed , all aspects of the patient interview, examination, medical decision making process, and medical care plan development were reviewed and approved by the preceptor. Preceptor is aware and concurs with the plan as stated in the body of this note and will attest to such by his/her cosignature Bhavin MCCABE, I+O VSBhavin, I+O Laboratory Tests 12/13/16 04:50 Red Blood Count 3.57 L, Mean Corpuscular Volume 97.8 H, Mean Corpuscular Hemoglobin 33.6 H, Mean Corpuscular Hemoglobin Concent 34.4, Red Cell Distribution Width 14.3, Calcium Level 7.9 L, Aspartate Amino Transf (AST/SGOT) 10 L, Alanine Aminotransferase (ALT/SGPT) 25, Alkaline Phosphatase 65, Total Bilirubin 0.6, Total Protein 5.8 L, Albumin 2.6 L Vital Signs Date Time Temp Pulse Resp B/P (MAP) Pulse Ox O2 Delivery O2 Flow Rate FiO2 12/13/16 09:38 84 143/88 12/13/16 07:57 97.6 19 93 Room Air 12/09/16 16:20 2.0 I&O- Last 24 Hours up to 6 AM 12/13/16 06:00 Intake Total 3500 ml Output Total 3035 ml Balance 465 ml Physical Examination Physical Examination Vital Signs/I&O Vital Signs Date Time Temp Pulse Resp B/P (MAP) Pulse Ox O2 Delivery O2 Flow Rate FiO2 12/13/16 09:38 84 143/88 12/13/16 07:57 97.6 19 93 Room Air 12/09/16 16:20 2.0 I&O- Last 24 Hours up to 6 AM 12/14/16 05:59 Intake Total 240 ml Output Total 600 ml Balance -360 ml General Exam: Positive: alert, attentive, talkative, cooperative, no acute distress, oriented times three ENT EXAM: Positive: normocephalic, atraumatic Neck Exam: Positive: Supple, Normal inspection, Negative: Lymphadenopathy, Thyromegaly Chest Exam: Positive: Clear to auscultation, Negative: Wheezing, Rales, Rhonchi Heart Exam: Positive: Regular rate and rhythm, Normal S1, S2, Negative: Murmurs, Gallops, Rubs Abdominal Exam: Positive: Normal bowel sounds, Soft, Other ((-) alegria's sign today), Negative: Nondistended, Nontender, Hepatospenomegaly Extremity Exam: Positive: Normal pulses (+2 radial pulses bilaterally), Negative: Clubbing, Cyanosis, Edema Skin Exam: Positive: Warm, Dry, Nl turgor and temperature, Negative: Rashes Neuro Exam: Positive: Normal Speech, Other (no focal neurologic deficits appreciated bilaterally. ) Psych Exam: Positive: Mental status NL, Mood NL, Memory Intact, Alert and oriented x 3 Laboratory Data Labs 24H Laboratory Tests 2 12/13/16 04:50: Anion Gap 9, Glomerular Filtration Rate > 60.0, Blood Urea Nitrogen 4#L, Creatinine 0.65, Sodium Level 140, Potassium Level 4.0, Chloride Level 107, Carbon Dioxide Level 24, Calcium Level 7.9L, Aspartate Amino Transf (AST/SGOT) 10L, Alanine Aminotransferase (ALT/SGPT) 25, Alkaline Phosphatase 65, Total Bilirubin 0.6, Total Protein 5.8L, Albumin 2.6L, Magnesium Level 1.8, Albumin/ Globulin Ratio 0.81L, Lipase 608H CBC/BMP Laboratory Tests 12/13/16 04:50 Red Blood Count 3.57 L, Mean Corpuscular Volume 97.8 H, Mean Corpuscular Hemoglobin 33.6 H, Mean Corpuscular Hemoglobin Concent 34.4, Red Cell Distribution Width 14.3, Calcium Level 7.9 L, Aspartate Amino Transf (AST/SGOT) 10 L, Alanine Aminotransferase (ALT/SGPT) 25, Alkaline Phosphatase 65, Total Bilirubin 0.6, Total Protein 5.8 L, Albumin 2.6 L Microbiology Microbiology 12/09/16 Urine Culture - Final, Complete GME ATTESTATION GME ATTESTATION My preceptor for this patient encounter was physically present in the building during the encounter and was fully available. As needed, all aspects of the patient interview, examination, medical decision making process, and medical care plan development were reviewed and approved by the preceptor. Preceptor is aware and concurs with the plan as stated in the body of this note and will attest to such by his/her cosignature. ATTENDING NOTE I have independently seen and examined the patient. I agree with the plan discussed in the residents's Note. SERJIO Jiménez MDT OGME-1 Dec 13, 2016 20:23 GUILLAUME MULTANI MD Dec 18, 2016 11:41
--- NOTE | 2016-12-14 12:50 | DSES ---
DATE OF ADMISSION: 12/09/2016 DATE OF DISCHARGE: 12/13/2016 ADMISSION DIAGNOSIS: Gallstone pancreatitis. DISCHARGE DIAGNOSIS: Gallstone pancreatitis. HOSPITAL COURSE: The patient is a 76-year-old female who presented 12/09/2016 with chief complaint of epigastric abdominal pain. In the emergency room, she was found to have laboratories consistent with acute pancreatitis with a lipase of 22,568. She also had an ultrasound done when she came in that showed cholelithiasis and biliary sludge and mobile stones, positive sonographic Mancini sign. She was diagnosed with gallstone pancreatitis and kept in the hospital to essentially treat the pancreatitis and plan on cholecystectomy prior to discharge. She was initially started on intravenous (IV) fluids, antibiotics due to a white count on admission at 15.3, as well as kept nothing by mouth. Within 12 hours, her pain had completely gone away. Her lipase was still rather high, so we held off on surgery over the weekend, and continued to monitor her closely, slowly advancing her diet to a regular diet on 12/12/2016, which she continued to tolerate well. By the morning of 12/13/2016, her lipase was still in the 600 range, but her she was tolerating diet. I gave her the option of proceeding with surgery prior to discharge or discharging her home, giving the pancreas a couple more weeks for the swelling and inflammation to improve prior to surgery; and she elected to choose that route. She was discharged home. I advised her to stay on a low-fat, low-cholesterol diet, stay away from any alcohol, caffeine, tobacco, new medications at home between now and surgery. She refuses to admit that she is a drinker, but the daughters did mention that she drinks a lot of alcohol at home on a daily basis to the point of passing out. She was on alcohol and ethyl alcohol (EtOH) withdrawal precautions during her stay. She never had any complications from that. No other difficulties with her stay, so the plan is discharge home today. She will followup with me in the office this to have surgery scheduled. She will need preoperative clearance from her medical doctor and event representative, and then she will have surgery planned within the next couple weeks.
== END 2016-12-13 12:24 | disposition home or self-care (01) | DRG 439 ==
LOC: M ED 01:51 → M ED INP 08:19 → M PED 10:57 → M ICU 16:04 → M PCU 12-12 22:53
PROVIDERS: ADMIT Surgery; ATTEND Surgery
DX: K85.10 Biliary acute pancreatitis without necrosis or infection (principal); I47.1 Supraventricular tachycardia; E89.0 Postprocedural hypothyroidism; I25.10 Atherosclerotic heart disease of native coronary artery without angina pectoris; E78.5 Hyperlipidemia, unspecified; F10.10 Alcohol abuse, uncomplicated; H40.9 Unspecified glaucoma; F17.210 Nicotine dependence, cigarettes, uncomplicated; M85.80 Other specified disorders of bone density and structure, unspecified site; I10 Essential (primary) hypertension; Z88.1 Allergy status to other antibiotic agents; Z88.2 Allergy status to sulfonamides; Z88.8 Allergy status to other drugs, medicaments and biological substances; Z79.82 Long term (current) use of aspirin; Z79.899 Other long term (current) drug therapy

== ENCOUNTER 2017-01-05 10:14 | Day surgery (SDC) | payer MEDICARE, BC, OTHER ==
[~2017-01-05] VITALS: Ht 154.9 cm; Wt 58.5 kg
[~2017-01-05 10:14] MED LIST changes: +BUPIVACAINE/EPIN 0.25% 30 ML VIAL As Ordered ONE; +LR 1,000 ML IV ONE
[2017-01-05] MEDS ORDERED: MIDAZOLAM INJ 2 MG/2 ML VIAL (J2250) As Ordered ONE (11:38)
[2017-01-05] MEDS ORDERED: fentaNYL 100 MCG/2 ML INJECTION (J3010) As Ordered ONE ×2 (11:38→12:58)
[2017-01-05] MEDS ORDERED: CLINDAMYCIN 600 MG/50 ML PREMIX BAG As Ordered ONE (11:58)
[2017-01-05] MEDS ORDERED: CLINDAMYCIN 600 MG in APPROPRIATE DILUENT 1 EA IV ONE (12:00)
[2017-01-05] MEDS ORDERED: ROCURONIUM BROMIDE 50 MG/5 ML VIAL/SYRINGE As Ordered ONE (12:45)
[2017-01-05] MEDS ORDERED: KETOROLAC 60 MG/2 ML VIAL (J1885) As Ordered ONE (12:46)
[2017-01-05] MEDS ORDERED: PROPOFOL 200 MG/20 ML VIAL As Ordered ONE (12:46)
[2017-01-05] MEDS ORDERED: ONDANSETRON 4MG/2ML VIAL (J2405) As Ordered ONE (12:46)
[2017-01-05] MEDS ORDERED: LIDOCAINE 2% INJ 100 MG/5 ML SDV (FOR ANES.) As Ordered ONE (12:46)
[2017-01-05] MEDS ORDERED: GLYCOPYRROLATE INJ 0.2 MG/ML 2 ML VIAL As Ordered ONE (12:47)
[2017-01-05] MEDS ORDERED: NEOSTIGMINE 1MG/ML 5 ML SYRINGE (J2710) As Ordered ONE (12:47)
[2017-01-05] MEDS ORDERED: LR 1,000 ML IV SCH (13:30)
[2017-01-05] MEDS ORDERED: NORCO, ANEXSIA 5/325MG TABLET (HYDROcodone/ACETAMINOPHEN) PO PRN ×2 (13:30)
[2017-01-05] MEDS ORDERED: ONDANSETRON 4MG/2ML VIAL (J2405) IV PRN (13:30)
[2017-01-05] MEDS ORDERED: fentaNYL 100 MCG/2 ML INJECTION (J3010) IV PRN (13:30)
[2017-01-05 14:35] VITALS: BP 128/56
--- NOTE | 2017-01-05 16:46 | RO ---
DATE OF PROCEDURE: 01/05/2017 PREOPERATIVE DIAGNOSIS: Gallstone pancreatitis. POSTOPERATIVE DIAGNOSIS: Gallstone pancreatitis. PROCEDURE: Laparoscopic cholecystectomy. SURGEON: Dr. Dinero CCNP: None. ANESTHESIA: General: ESTIMATED BLOOD LOSS: 5. COMPLICATIONS: None. INDICATIONS FOR PROCEDURE: The patient is 76-year-old female who was recently in the hospital 1 month ago with gallstone pancreatitis. Recommendation was to proceed with outpatient laparoscopic cholecystectomy. Risks and benefits of the procedure, not limited to, but including bleeding, infection, hernia formation, damage to surrounding structures, need for further surgery were discussed in detail with the patient. Informed was obtained and procedure was planned. PROCEDURE: The patient brought to operating room #3. After sufficient sedation, the abdomen was sterilely prepped and draped. Next, a time-out was done to confirm proper patient and proper procedure. Following that, a stab incision was made in the left lower quadrant, Veress needle was inserted and the abdomen was insufflated to 50 mmHg. Next, a 5 mm OptiView port was used to gain access to the abdomen supraumbilically. Once the abdomen was entered, Veress needle site was examined. There were no signs of any injury. Veress needle was then removed. 11 mm port was placed subxiphoid, two 5 mm ports in the right upper quadrant. Fundus of the gallbladder was grasped, elevated up towards the right shoulder. Cystic duct and cystic artery were clearly identified. Very minimal dissection. Once they were both dissected free, they were both doubly clipped and cut. The gallbladder was then dissected free from the gallbladder fossa using electrocautery. It was then brought out through the 11 mm port site in a 10 mm EndoCatch bag. Abdomen was then desufflated. Skin incisions were closed with #4-0 Vicryl subcuticular sutures. The abdomen was cleaned and dried. Steri-Strips, 4x4, and tape were applied, thus ending procedure.
== END 2017-01-05 14:55 | disposition home or self-care (01) ==
LOC: M SDC 10:14
PROVIDERS: ATTEND Surgery
DX: K80.10 Calculus of gallbladder with chronic cholecystitis without obstruction (principal); I10 Essential (primary) hypertension; E03.9 Hypothyroidism, unspecified; E78.5 Hyperlipidemia, unspecified; I25.10 Atherosclerotic heart disease of native coronary artery without angina pectoris; M46.92 Unspecified inflammatory spondylopathy, cervical region; L40.9 Psoriasis, unspecified; Z79.899 Other long term (current) drug therapy; Z79.82 Long term (current) use of aspirin; Z88.8 Allergy status to other drugs, medicaments and biological substances; Z88.1 Allergy status to other antibiotic agents; Z88.2 Allergy status to sulfonamides; Z87.891 Personal history of nicotine dependence
CPT/HCPCS: 47562; 88304; J1885; J2250; J2405; J2710; J3010

== ENCOUNTER → 2017-02-28 | Outpatient (REF) | payer MEDICARE, BC, OTHER ==
[~2017-02-28] MED LIST changes: -BUPIVACAINE/EPIN 0.25% 30 ML VIAL As Ordered ONE; -LR 1,000 ML IV ONE
[2017-02-28 12:35] LABS: ALBUMIN 3.7 GM/DL (3.2-5.2); ALBUMIN/GLOBULIN RATIO 1.09 (1.00-1.93); ALKALINE PHOSPHATASE 91 U/L (45-117); ALT/SGPT 22 U/L (12-78); ANION GAP 7 MEQ/L (8-16); AST/SGOT 16 U/L (15-37); BILIRUBIN,TOTAL 0.7 MG/DL (0.2-1.0); BLOOD UREA NITROGEN 19 MG/DL (7-18); CALCIUM LEVEL 9.6 MG/DL (8.8-10.2); CARBON DIOXIDE LEVEL 30 MEQ/L (21-32); CHLORIDE LEVEL 103 MEQ/L (98-107); CHOLESTEROL LEVEL 131 MG/DL (<200); CREATININE FOR GFR 0.82 MG/DL (0.55-1.02); FREE T4 1.55 NG/DL (0.76-1.46); GLOMERULAR FILTRATION RATE > 60.0 (>39); GLUCOSE, FASTING 89 MG/DL (83-110); POTASSIUM SERUM 4.2 MEQ/L (3.5-5.1); SODIUM LEVEL 140 MEQ/L (136-145); TOTAL PROTEIN 7.1 GM/DL (6.4-8.2); TRIGLYCERIDES LEVEL 144 MG/DL (<150)
== END ==
LOC: M LABDRAW1 08:24
PROVIDERS: ATTEND Internal Medicine Cardiovascular Disease
DX: I10 Essential (primary) hypertension (principal); E78.2 Mixed hyperlipidemia; E03.9 Hypothyroidism, unspecified; E78.5 Hyperlipidemia, unspecified

== ENCOUNTER → 2017-09-08 | Outpatient (REF) | payer MEDICARE, BC, OTHER ==
[2017-09-08 12:52] LABS: HEMATOCRIT 38.2 % (36.0-47.0); HEMOGLOBIN 12.1 g/dl (12.0-15.5); MEAN CORPUSCULAR HEMOGLOBIN 29.3 pg (27.0-33.0); MEAN CORPUSCULAR HGB CONC 31.7 g/dl (32.0-36.5); MEAN CORPUSCULAR VOLUME 92.5 fl (80.0-96.0); PLATELET COUNT, AUTOMATED 270 10^3/uL (150-450); RED BLOOD COUNT 4.13 10^6/uL (4.00-5.40); RED CELL DISTRIBUTION WIDTH 14.9 % (11.5-14.5)
[2017-09-08 13:20] LABS: FREE T4 1.63 NG/DL (0.76-1.46); THYROID STIMULATING HORMONE 0.554 uIU/ML (0.358-3.740)
== END ==
LOC: M LABDRAW1 12:21
DX: E03.9 Hypothyroidism, unspecified (principal); R06.02 Shortness of breath
CPT/HCPCS: 84443

== ENCOUNTER → 2018-02-23 | Outpatient (REF) | payer MEDICARE, OTHER ==
[2018-02-23 21:51] LABS: APPEARANCE, URINE CLOUDY (CLEAR); BACTERIA, URINE AUTO 2+ (NEGATIVE); BILIRUBIN, URINE AUTO NEGATIVE (NEGATIVE); BLOOD, URINE BLOOD NEGATIVE (NEGATIVE); COLOR, URINE AMBER (YELLOW); GLUCOSE, URINE (UA) AUTO NEGATIVE (NEGATIVE); KETONE, URINE AUTO TRACE mg/dL (NEGATIVE); LEUKOCYTE ESTERASE, URINE AUTO 3+ (NEGATIVE); NITRITE, URINE AUTO POSITIVE (NEGATIVE); PROTEIN, URINE AUTO 1+ mg/dL (NEGATIVE); RBC, URINE AUTO 0 /HPF (0-3); SPECIFIC GRAVITY URINE AUTO 1.023 (1.002-1.035); SQUAMOUS EPITHELIAL CELL UR AU 1 /HPF (0-6); WBC, URINE AUTO 5 /HPF (0-3)
== END ==
LOC: M LAB REF 09:43
DX: N39.0 Urinary tract infection, site not specified (principal)
CPT/HCPCS: 81001

== ENCOUNTER → 2018-05-05 | Outpatient (REF) | payer MEDICARE, OTHER ==
[~2018-05-05] MED LIST changes: +FOLI1TAB11 PO; -FOLI1TAB4 PO; +ZYRT10CA5 PO; -ZYRT10TA2 PO
[2018-05-05 12:40] LABS: APPEARANCE, URINE HAZY (CLEAR); BACTERIA, URINE AUTO 1+ (NEGATIVE); BILIRUBIN, URINE AUTO NEGATIVE (NEGATIVE); BLOOD, URINE BLOOD NEGATIVE (NEGATIVE); COLOR, URINE YELLOW (YELLOW); GLUCOSE, URINE (UA) AUTO NEGATIVE (NEGATIVE); KETONE, URINE AUTO NEGATIVE (NEGATIVE); LEUKOCYTE ESTERASE, URINE AUTO 3+ (NEGATIVE); NITRITE, URINE AUTO NEGATIVE (NEGATIVE); PROTEIN, URINE AUTO NEGATIVE (NEGATIVE); RBC, URINE AUTO 3 /HPF (0-3); SPECIFIC GRAVITY URINE AUTO 1.006 (1.002-1.035); SQUAMOUS EPITHELIAL CELL UR AU 6 /HPF (0-6); UROBILINOGEN, URINE AUTO 0.2 mg/dL (0.0-2.0); WBC, URINE AUTO 33 /HPF (0-3)
== END ==
LOC: M LAB REF 11:52
PROVIDERS: ATTEND Physician Assistant Medical
DX: N39.0 Urinary tract infection, site not specified (principal)

== ENCOUNTER → 2018-09-11 | Outpatient (REF) | payer MEDICARE, OTHER ==
[~2018-09-11] MED LIST changes: -ASPI1TAB PO; +ASPI81TA26 PO; -D 101TAB PO; +LEVO88TA3 PO; +LOSA25TA14 PO; +VITA-144 PO
[2018-09-11 12:24] LABS: ALBUMIN 3.5 GM/DL (3.2-5.2); BILIRUBIN,TOTAL 0.6 MG/DL (0.2-1.0); CALCIUM LEVEL 8.5 MG/DL (8.8-10.2); CHOLESTEROL RISK RATIO 3.212 (<5); CREATININE FOR GFR 0.96 MG/DL (0.55-1.30); FREE T4 1.66 NG/DL (0.76-1.46); GLOMERULAR FILTRATION RATE 59.7 (>39); POTASSIUM SERUM 4.2 MEQ/L (3.5-5.1); THYROID STIMULATING HORMONE 0.793 uIU/ML (0.358-3.740); TOTAL 25(OH) VITAMIN D 56.8 NG/ML (30.0-100.0); TOTAL PROTEIN 7.2 GM/DL (6.4-8.2)
== END ==
LOC: M LABDRAW1 11:46
PROVIDERS: ATTEND Internal Medicine Cardiovascular Disease
DX: E03.9 Hypothyroidism, unspecified (principal)

== ENCOUNTER 2018-10-23 06:30 | Day surgery (SDC) | payer MEDICARE, BC, OTHER ==
[~2018-10-23] VITALS: Ht 152.4 cm; Wt 59.0 kg
[~2018-10-23 06:30] MED LIST changes: +ALL10TAB28 PO; +NS 1,000 ML IV ONE; +SYNT75TA PO
[2018-10-23] MEDS ORDERED: PROPOFOL 500 MG/50 ML VIAL As Ordered ONE (07:37)
[2018-10-23] MEDS ORDERED: LIDOCAINE 2% INJ 100 MG/5 ML SDV (FOR ANES.) As Ordered ONE (07:37)
--- NOTE | 2018-10-23 07:55 | ROOR ---
Patient Name: Kathe Banegas Procedure Date: 10/23/2018 7:33 AM Date of : 1940 Age: 78 Room: [facility] Gender: Female Note Status: Finalized Procedure: Colonoscopy Indications: Screening for colorectal malignant neoplasm Providers: Paresh FOOTE MD Referring MD: Johann Grier MD Requesting Provider: Medicines: Monitored Anesthesia Care Complications: No immediate complications. Procedure: Pre-Anesthesia Assessment: - The heart rate, respiratory rate, oxygen saturations, blood pressure, adequacy of pulmonary ventilation, and response to care were monitored throughout the procedure. The Colonoscope was introduced through the anus and advanced to the terminal ileum, with identification of the appendiceal orifice and IC valve. The colonoscopy was performed without difficulty. The patient tolerated the procedure well. The quality of the bowel preparation was good. Findings: The perianal and digital rectal examinations were normal. (Exam: Complete, Prep: Good or Excellent.) Internal hemorrhoids were found during retroflexion. The hemorrhoids were medium-sized. Multiple small-mouthed diverticula were found in the sigmoid colon. The entire examined colon appeared normal on direct and retroflexion views. Impression: - (Exam: Complete, Prep: Good or Excellent.) - Internal hemorrhoids. - Mild diverticulosis in the sigmoid colon. - The entire examined colon is normal on direct and retroflexion views. - No specimens collected. Recommendation: - Repeat colonoscopy PRN for screening purposes. Paresh Foote MD Paresh FOOTE MD 10/23/2018 7:55:04 AM Electronically signed by Paresh FOOTE MD Number of Addenda: 0 Note Initiated On: 10/23/2018 7:33 AM Estimated Blood Loss: Estimated blood loss: none.
[2018-10-23 08:15] VITALS: BP 117/56
== END 2018-10-23 08:23 | disposition home or self-care (01) ==
LOC: M OPP 06:30
PROVIDERS: ATTEND Internal Medicine Gastroenterology
DX: Z12.11 Encounter for screening for malignant neoplasm of colon (principal); K64.8 Other hemorrhoids; K57.30 Diverticulosis of large intestine without perforation or abscess without bleeding; Z79.899 Other long term (current) drug therapy; Z88.0 Allergy status to penicillin; Z88.2 Allergy status to sulfonamides; Z88.8 Allergy status to other drugs, medicaments and biological substances; F17.210 Nicotine dependence, cigarettes, uncomplicated

== ENCOUNTER → 2018-10-26 | Outpatient (REF) | payer MEDICARE, OTHER ==
[~2018-10-26] MED LIST changes: -NS 1,000 ML IV ONE
[2018-10-26 12:58] LABS: FREE T4 1.17 NG/DL (0.76-1.46); THYROID STIMULATING HORMONE 5.57 uIU/ML (0.358-3.740)
== END ==
LOC: M LABDRAW1 12:00
PROVIDERS: ATTEND Internal Medicine Cardiovascular Disease
DX: E03.9 Hypothyroidism, unspecified (principal)

== ENCOUNTER → 2019-03-16 | Outpatient (REF) | payer MEDICARE, OTHER ==
[~2019-03-16] MED LIST changes: -ALL10TAB28 PO; +ALL10TAB29 PO
[2019-03-16 14:33] LABS: ALT/SGPT 24 U/L (12-78); BLOOD UREA NITROGEN 18 MG/DL (7-18); CALCIUM LEVEL 8.8 MG/DL (8.8-10.2); CARBON DIOXIDE LEVEL 30 MEQ/L (21-32); CHLORIDE LEVEL 106 MEQ/L (98-107); GLOMERULAR FILTRATION RATE > 60.0 (>39); GLUCOSE, FASTING 110 MG/DL (70-100); POTASSIUM SERUM 4.1 MEQ/L (3.5-5.1); SODIUM LEVEL 139 MEQ/L (136-145)
[2019-03-16 14:34] LABS: ALBUMIN 3.4 GM/DL (3.2-5.2); BILIRUBIN,TOTAL 0.6 MG/DL (0.2-1.0); CHOLESTEROL LEVEL 128 MG/DL (<200); CHOLESTEROL RISK RATIO 3.657 (<5); FREE T4 1.31 NG/DL (0.76-1.46); HDL CHOLESTEROL 35 MG/DL (>40); LDL CHOLESTEROL 45 MG/DL (<100); NON-HDL-C 93 MG/DL; TOTAL PROTEIN 6.8 GM/DL (6.4-8.2); TRIGLYCERIDES LEVEL 242 MG/DL (<150)
== END ==
LOC: M LABDRAW1 13:27
PROVIDERS: ATTEND Internal Medicine Cardiovascular Disease
DX: E03.9 Hypothyroidism, unspecified (principal); E78.5 Hyperlipidemia, unspecified; I11.0 Hypertensive heart disease with heart failure; I51.89 Other ill-defined heart diseases

== ENCOUNTER → 2019-04-17 | Outpatient (REF) | payer MEDICARE, OTHER ==
[~2019-04-17] MED LIST changes: +DIGO0.123 PO
[2019-04-17 19:59] LABS: APPEARANCE, URINE CLOUDY (CLEAR); BACTERIA, URINE AUTO 2+ (NEGATIVE); BILIRUBIN, URINE AUTO NEGATIVE (NEGATIVE); BLOOD, URINE BLOOD 1+ (NEGATIVE); COLOR, URINE YELLOW (YELLOW); GLUCOSE, URINE (UA) AUTO NEGATIVE (NEGATIVE); KETONE, URINE AUTO TRACE mg/dL (NEGATIVE); LEUKOCYTE ESTERASE, URINE AUTO 3+ (NEGATIVE); NITRITE, URINE AUTO NEGATIVE (NEGATIVE); PROTEIN, URINE AUTO NEGATIVE (NEGATIVE); RBC, URINE AUTO 7 /HPF (0-3); SPECIFIC GRAVITY URINE AUTO 1.024 (1.002-1.035); SQUAMOUS EPITHELIAL CELL UR AU 8 /HPF (0-6); TRANSITIONAL EPITHELIAL AUTO <1 /HPF; UROBILINOGEN, URINE AUTO 0.2 mg/dL (0.0-2.0); WBC, URINE AUTO 50 /HPF (0-3)
== END ==
LOC: M LAB REF 19:27
PROVIDERS: ATTEND Physician Assistant Medical
DX: N39.0 Urinary tract infection, site not specified (principal)

== ENCOUNTER → 2019-06-19 | Outpatient (REF) | payer MEDICARE, OTHER ==
[2019-06-19 11:32] LABS: APPEARANCE, URINE CLOUDY (CLEAR); BACTERIA, URINE AUTO NEGATIVE (NEGATIVE); BILIRUBIN, URINE AUTO NEGATIVE (NEGATIVE); BLOOD, URINE BLOOD NEGATIVE (NEGATIVE); COLOR, URINE YELLOW (YELLOW); GLUCOSE, URINE (UA) AUTO NEGATIVE (NEGATIVE); KETONE, URINE AUTO TRACE mg/dL (NEGATIVE); LEUKOCYTE ESTERASE, URINE AUTO 3+ (NEGATIVE); NITRITE, URINE AUTO NEGATIVE (NEGATIVE); PROTEIN, URINE AUTO NEGATIVE (NEGATIVE); RBC, URINE AUTO 2 /HPF (0-3); SPECIFIC GRAVITY URINE AUTO 1.019 (1.002-1.035); SQUAMOUS EPITHELIAL CELL UR AU 4 /HPF (0-6); UROBILINOGEN, URINE AUTO 0.2 mg/dL (0.0-2.0); WBC, URINE AUTO 51 /HPF (0-3)
== END ==
LOC: M LAB REF 10:54
PROVIDERS: ATTEND Physician Assistant Medical
DX: N39.0 Urinary tract infection, site not specified (principal)

== ENCOUNTER → 2019-07-18 | Outpatient (REF) | payer MEDICARE, OTHER ==
[2019-07-18 14:39] LABS: FREE T3 2.4 PG/ML (2.2-4.0); FREE T4 1.48 NG/DL (0.76-1.46); THYROID STIMULATING HORMONE 3.32 uIU/ML (0.358-3.740)
== END ==
LOC: M LABDRAW1 10:04
PROVIDERS: ATTEND Family Medicine
DX: E03.9 Hypothyroidism, unspecified (principal)

== ENCOUNTER → 2019-09-25 | Outpatient (CLI) | payer MEDICARE, OTHER ==
[2019-09-25 07:58] LABS: ALBUMIN 3.4 GM/DL (3.2-5.2); BILIRUBIN,TOTAL 0.5 MG/DL (0.2-1.0); CALCIUM LEVEL 8.4 MG/DL (8.8-10.2); CHOLESTEROL RISK RATIO 3.2 (<5); CREATININE FOR GFR 1.06 MG/DL (0.55-1.30); FREE T4 1.3 NG/DL (0.76-1.46); GLOMERULAR FILTRATION RATE 53.1 (>32); POTASSIUM SERUM 4.4 MEQ/L (3.5-5.1); THYROID STIMULATING HORMONE 3.29 uIU/ML (0.358-3.740); TOTAL PROTEIN 7.2 GM/DL (6.4-8.2)
== END ==
LOC: M LAB 06:43
PROVIDERS: ATTEND Internal Medicine Cardiovascular Disease
DX: E78.5 Hyperlipidemia, unspecified (principal); I10 Essential (primary) hypertension; I51.89 Other ill-defined heart diseases

== ENCOUNTER → 2019-10-17 | Outpatient (CLI) | payer MEDICARE, OTHER ==
[2019-10-17 07:11] LABS: HEMATOCRIT 36.1 % (36.0-47.0); HEMOGLOBIN 10.7 g/dl (12.0-15.5); MEAN CORPUSCULAR HEMOGLOBIN 25.4 pg (27.0-33.0); MEAN CORPUSCULAR HGB CONC 29.6 g/dl (32.0-36.5); MEAN CORPUSCULAR VOLUME 85.7 fl (80.0-96.0); PLATELET COUNT, AUTOMATED 377 10^3/uL (150-450); RED BLOOD COUNT 4.21 10^6/uL (4.00-5.40)
[2019-10-17 07:48] LABS: ALBUMIN 3.6 GM/DL (3.2-5.2); ALT/SGPT 22 U/L (12-78); BILIRUBIN,TOTAL 0.5 MG/DL (0.2-1.0); BLOOD UREA NITROGEN 15 MG/DL (7-18); CALCIUM LEVEL 8.8 MG/DL (8.8-10.2); CARBON DIOXIDE LEVEL 26 MEQ/L (21-32); CHLORIDE LEVEL 105 MEQ/L (98-107); CHOLESTEROL LEVEL 148 MG/DL (<200); CHOLESTEROL RISK RATIO 3.363 (<5); CREATININE FOR GFR 0.95 MG/DL (0.55-1.30); FREE T3 2.7 PG/ML (2.2-4.0); FREE T4 1.21 NG/DL (0.76-1.46); GLOMERULAR FILTRATION RATE > 60.0 (>32); GLUCOSE, FASTING 109 MG/DL (70-100); HDL CHOLESTEROL 44 MG/DL (>40); LDL CHOLESTEROL 59 MG/DL (<100); NON-HDL-C 104 MG/DL; POTASSIUM SERUM 4.2 MEQ/L (3.5-5.1); SODIUM LEVEL 139 MEQ/L (136-145); TOTAL PROTEIN 7.4 GM/DL (6.4-8.2); TRIGLYCERIDES LEVEL 225 MG/DL (<150)
[2019-10-17 09:31] LABS: TOTAL 25(OH) VITAMIN D 55.5 NG/ML (30.0-100.0)
== END ==
LOC: M LAB 06:30
PROVIDERS: ATTEND Family Medicine
DX: E55.9 Vitamin D deficiency, unspecified (principal); E03.9 Hypothyroidism, unspecified; I10 Essential (primary) hypertension; Z79.899 Other long term (current) drug therapy

== ENCOUNTER → 2019-11-15 | Outpatient (REF) | payer MEDICARE, OTHER ==
[~2019-11-15] MED LIST changes: -ALL10TAB29 PO; +CETI-24 PO
== END ==
LOC: M LAB REF 11:38
PROVIDERS: ATTEND Physician Assistant
DX: R10.9 Unspecified abdominal pain (principal)

== ENCOUNTER → 2019-12-07 | Outpatient (REF) | payer MEDICARE, OTHER ==
[2020-01-04 12:46] LABS: APPEARANCE, URINE HAZY (CLEAR); BACTERIA, URINE AUTO 1+ (NEGATIVE); BILIRUBIN, URINE AUTO NEGATIVE (NEGATIVE); BLOOD, URINE BLOOD NEGATIVE (NEGATIVE); COLOR, URINE YELLOW (YELLOW); GLUCOSE, URINE (UA) AUTO NEGATIVE (NEGATIVE); KETONE, URINE AUTO NEGATIVE (NEGATIVE); LEUKOCYTE ESTERASE, URINE AUTO 3+ (NEGATIVE); MUCUS, URINE SMALL (NEGATIVE); NITRITE, URINE AUTO NEGATIVE (NEGATIVE); PROTEIN, URINE AUTO NEGATIVE (NEGATIVE); RBC, URINE AUTO 1 /HPF (0-3); SQUAMOUS EPITHELIAL CELL UR AU 1 /HPF (0-6); UROBILINOGEN, URINE AUTO 0.2 mg/dL (0.0-2.0); WBC, URINE AUTO 5 /HPF (0-3)
== END ==
LOC: M LAB REF 10:10
PROVIDERS: ATTEND Physician Assistant Medical
DX: N39.0 Urinary tract infection, site not specified (principal)

== ENCOUNTER → 2019-12-28 | Outpatient (REF) | payer MEDICARE, OTHER ==
[2019-12-28 19:51] LABS: APPEARANCE, URINE HAZY (CLEAR); BACTERIA, URINE AUTO NEGATIVE (NEGATIVE); BILIRUBIN, URINE AUTO NEGATIVE (NEGATIVE); BLOOD, URINE BLOOD NEGATIVE (NEGATIVE); CALCIUM OXALATE CRYSTALS SMALL; COLOR, URINE YELLOW (YELLOW); GLUCOSE, URINE (UA) AUTO NEGATIVE (NEGATIVE); KETONE, URINE AUTO TRACE mg/dL (NEGATIVE); LEUKOCYTE ESTERASE, URINE AUTO TRACE (NEGATIVE); NITRITE, URINE AUTO NEGATIVE (NEGATIVE); PROTEIN, URINE AUTO NEGATIVE (NEGATIVE); RBC, URINE AUTO 2 /HPF (0-3); SPECIFIC GRAVITY URINE AUTO 1.026 (1.002-1.035); SQUAMOUS EPITHELIAL CELL UR AU 1 /HPF (0-6); WBC, URINE AUTO 4 /HPF (0-3)
== END ==
LOC: M LAB REF 18:22
PROVIDERS: ATTEND Physician Assistant Medical
DX: N39.0 Urinary tract infection, site not specified (principal)

== ENCOUNTER → 2020-01-11 | Outpatient (REF) | payer MEDICARE, OTHER ==
[2020-01-11 17:57] LABS: APPEARANCE, URINE HAZY (CLEAR); BACTERIA, URINE AUTO 1+ (NEGATIVE); BILIRUBIN, URINE AUTO NEGATIVE (NEGATIVE); BLOOD, URINE BLOOD NEGATIVE (NEGATIVE); COLOR, URINE YELLOW (YELLOW); GLUCOSE, URINE (UA) AUTO NEGATIVE (NEGATIVE); KETONE, URINE AUTO NEGATIVE (NEGATIVE); LEUKOCYTE ESTERASE, URINE AUTO 1+ (NEGATIVE); NITRITE, URINE AUTO NEGATIVE (NEGATIVE); PROTEIN, URINE AUTO NEGATIVE (NEGATIVE); RBC, URINE AUTO 3 /HPF (0-3); SPECIFIC GRAVITY URINE AUTO 1.003 (1.002-1.035); SQUAMOUS EPITHELIAL CELL UR AU 3 /HPF (0-6); UROBILINOGEN, URINE AUTO 0.2 mg/dL (0.0-2.0); WBC, URINE AUTO 9 /HPF (0-3)
== END ==
LOC: M LAB REF 17:06
PROVIDERS: ATTEND Physician Assistant
DX: N39.0 Urinary tract infection, site not specified (principal)

== ENCOUNTER → 2020-05-10 | Outpatient (CLI) | payer SELFPAY | LOC: M LABSMTC 08:45 | PROVIDERS: ATTEND Pediatrics | DX: Z20.828 Contact with and (suspected) exposure to other viral communicable diseases (principal) ==

== ENCOUNTER → 2020-06-13 | Outpatient (CLI) | payer MEDICARE, BC, OTHER ==
[2020-06-13 08:04] LABS: HEMATOCRIT 44.5 % (36.0-47.0); HEMOGLOBIN 13.7 g/dl (12.0-15.5); MEAN CORPUSCULAR HEMOGLOBIN 27.9 pg (27.0-33.0); MEAN CORPUSCULAR HGB CONC 30.8 g/dl (32.0-36.5); MEAN CORPUSCULAR VOLUME 90.6 fl (80.0-96.0); PLATELET COUNT, AUTOMATED 310 10^3/uL (150-450); RED BLOOD COUNT 4.91 10^6/uL (4.00-5.40); WHITE BLOOD COUNT 12.9 10^3/uL (4.0-10.0)
[2020-06-13 08:52] LABS: ALBUMIN 3.9 GM/DL (3.2-5.2); BILIRUBIN,TOTAL 0.7 MG/DL (0.2-1.0); CALCIUM LEVEL 9.6 MG/DL (8.8-10.2); CREATININE FOR GFR 0.99 MG/DL (0.55-1.30); DIGOXIN LEVEL 1.9 NG/ML (0.5-2.0); FREE T3 2.6 PG/ML (2.2-4.0); FREE T4 1.34 NG/DL (0.76-1.46); GLOMERULAR FILTRATION RATE 57.5 (>32); POTASSIUM SERUM 4.5 MEQ/L (3.5-5.1); THYROID STIMULATING HORMONE 3.52 uIU/ML (0.358-3.740); TOTAL PROTEIN 7.5 GM/DL (6.4-8.2)
== END ==
LOC: M LAB 06:44
PROVIDERS: ATTEND Family Medicine
DX: E03.9 Hypothyroidism, unspecified (principal); I10 Essential (primary) hypertension; Z79.899 Other long term (current) drug therapy

== ENCOUNTER → 2020-10-28 | Outpatient (REF) | payer MEDICARE, BC, OTHER ==
[~2020-10-28] MED LIST changes: +ASPI-569 PO; -ASPI81TAEC PO; +VERA80TA3 PO; -VERAP80TA PO
[2020-10-28 14:57] LABS: APPEARANCE, URINE HAZY (CLEAR); BACTERIA, URINE AUTO NEGATIVE (NEGATIVE); BILIRUBIN, URINE AUTO NEGATIVE (NEGATIVE); BLOOD, URINE BLOOD NEGATIVE (NEGATIVE); CALCIUM OXALATE CRYSTALS SMALL; COLOR, URINE YELLOW (YELLOW); GLUCOSE, URINE (UA) AUTO NEGATIVE (NEGATIVE); KETONE, URINE AUTO NEGATIVE (NEGATIVE); LEUKOCYTE ESTERASE, URINE AUTO 1+ (NEGATIVE); MUCUS, URINE SMALL (NEGATIVE); NITRITE, URINE AUTO NEGATIVE (NEGATIVE); PROTEIN, URINE AUTO NEGATIVE (NEGATIVE); RBC, URINE AUTO 1 /HPF (0-3); SPECIFIC GRAVITY URINE AUTO 1.018 (1.002-1.035); SQUAMOUS EPITHELIAL CELL UR AU 1 /HPF (0-6); UROBILINOGEN, URINE AUTO 0.2 mg/dL (0.0-2.0); WBC, URINE AUTO 3 /HPF (0-3)
== END ==
LOC: M LAB REF 13:53
PROVIDERS: ATTEND Physician Assistant
DX: N39.0 Urinary tract infection, site not specified (principal)

== ENCOUNTER → 2020-12-22 | Outpatient (REF) | payer MEDICARE, BC, OTHER ==
[2020-12-23 11:34] LABS: APPEARANCE, URINE CLOUDY (CLEAR); BACTERIA, URINE AUTO NEGATIVE (NEGATIVE); BILIRUBIN, URINE AUTO NEGATIVE (NEGATIVE); BLOOD, URINE BLOOD NEGATIVE (NEGATIVE); CALCIUM OXALATE CRYSTALS SMALL; COLOR, URINE YELLOW (YELLOW); GLUCOSE, URINE (UA) AUTO NEGATIVE (NEGATIVE); KETONE, URINE AUTO NEGATIVE (NEGATIVE); LEUKOCYTE ESTERASE, URINE AUTO 2+ (NEGATIVE); MUCUS, URINE SMALL (NEGATIVE); NITRITE, URINE AUTO NEGATIVE (NEGATIVE); PROTEIN, URINE AUTO NEGATIVE (NEGATIVE); RBC, URINE AUTO 2 /HPF (0-3); SPECIFIC GRAVITY URINE AUTO 1.024 (1.002-1.035); SQUAMOUS EPITHELIAL CELL UR AU 1 /HPF (0-6); WBC, URINE AUTO 4 /HPF (0-3)
== END ==
LOC: M LAB REF 11:10
PROVIDERS: ATTEND Physician Assistant Medical
DX: R30.0 Dysuria (principal)

== ENCOUNTER → 2021-08-27 | Outpatient (CLI) | payer MEDICARE, BC, OTHER ==
[~2021-08-27] MED LIST changes: +LOSA25TA13 PO; -LOSA25TA14 PO
[2021-08-27 08:11] LABS: ALBUMIN 3.9 GM/DL (3.2-5.2); BILIRUBIN,TOTAL 0.9 MG/DL (0.2-1.0); CALCIUM LEVEL 9.3 MG/DL (8.8-10.2); CHOLESTEROL RISK RATIO 2.697 (<5); CREATININE FOR GFR 0.95 MG/DL (0.55-1.30); FREE T4 1.34 NG/DL (0.76-1.46); POTASSIUM SERUM 4.2 MEQ/L (3.5-5.1); THYROID STIMULATING HORMONE 1.27 uIU/ML (0.358-3.740); TOTAL PROTEIN 7.3 GM/DL (6.4-8.2)
== END ==
LOC: M LAB 06:32
PROVIDERS: ATTEND Nurse Practitioner Family
DX: I10 Essential (primary) hypertension (principal)

== ENCOUNTER → 2021-11-02 | Outpatient (CLI) | payer MEDICARE, BC, OTHER ==
[2021-11-02 11:34] LABS: BASO # 0.1 10^3/uL (0.0-0.2); BASO % 0.6 % (0.0-1.0); EOS # 0.2 10^3/uL (0.0-0.5); EOS % 1.7 % (0.0-3.0); HEMATOCRIT 41.6 % (36.0-47.0); HEMOGLOBIN 13.4 g/dl (12.0-15.5); LYMPH # 2.1 10^3/uL (1.5-5.0); LYMPH % 14.9 % (24.0-44.0); MEAN CORPUSCULAR HEMOGLOBIN 31.3 pg (27.0-33.0); MEAN CORPUSCULAR HGB CONC 32.2 g/dl (32.0-36.5); MEAN CORPUSCULAR VOLUME 97.2 fl (80.0-96.0); MONO # 1.5 10^3/uL (0.0-0.8); MONO % 10.6 % (2.0-8.0); NEUTROPHILS # 10.2 10^3/uL (1.5-8.5); NEUTROPHILS % 71.6 % (36.0-66.0); PLATELET COUNT, AUTOMATED 264 10^3/uL (150-450); RED BLOOD COUNT 4.28 10^6/uL (4.00-5.40); WHITE BLOOD COUNT 14.2 10^3/uL (4.0-10.0)
[2021-11-02 12:33] LABS: ALBUMIN 3.8 GM/DL (3.2-5.2); ALT/SGPT 20 U/L (12-78); BILIRUBIN,TOTAL 0.7 MG/DL (0.2-1.0); BLOOD UREA NITROGEN 14 MG/DL (7-18); CALCIUM LEVEL 9.4 MG/DL (8.8-10.2); CARBON DIOXIDE LEVEL 29 MEQ/L (21-32); CHLORIDE LEVEL 107 MEQ/L (98-107); CREATININE FOR GFR 0.87 MG/DL (0.55-1.30); GLOMERULAR FILTRATION RATE > 60.0 (>32); GLUCOSE, FASTING 113 MG/DL (70-100); POTASSIUM SERUM 4.2 MEQ/L (3.5-5.1); SODIUM LEVEL 141 MEQ/L (136-145); TOTAL PROTEIN 6.9 GM/DL (6.4-8.2)
== END ==
LOC: M LAB 10:47
PROVIDERS: ATTEND Nurse Practitioner Family
DX: R19.7 Diarrhea, unspecified (principal)

== ENCOUNTER → 2021-11-11 | Outpatient (CLI) | payer MEDICARE, BC, OTHER ==
[2021-11-11 15:32] LABS: BASO # 0.1 10^3/uL (0.0-0.2); BASO % 0.6 % (0.0-1.0); EOS # 0.2 10^3/uL (0.0-0.5); EOS % 1.7 % (0.0-3.0); HEMATOCRIT 40.9 % (36.0-47.0); HEMOGLOBIN 13.4 g/dl (12.0-15.5); LYMPH % 15.6 % (24.0-44.0); MEAN CORPUSCULAR HEMOGLOBIN 30.8 pg (27.0-33.0); MEAN CORPUSCULAR HGB CONC 32.8 g/dl (32.0-36.5); NEUTROPHILS # 9.2 10^3/uL (1.5-8.5); NEUTROPHILS % 73.2 % (36.0-66.0); PLATELET COUNT, AUTOMATED 261 10^3/uL (150-450); RED BLOOD COUNT 4.35 10^6/uL (4.00-5.40); WHITE BLOOD COUNT 12.6 10^3/uL (4.0-10.0)
== END ==
LOC: M LAB 14:34
PROVIDERS: ATTEND Nurse Practitioner Family
DX: R10.84 Generalized abdominal pain (principal); R19.7 Diarrhea, unspecified

== ENCOUNTER → 2021-11-12 | Outpatient (REF) | payer MEDICARE, BC, OTHER | LOC: M LAB REF 09:11 | PROVIDERS: ATTEND Nurse Practitioner Family | DX: R19.7 Diarrhea, unspecified (principal); R10.84 Generalized abdominal pain ==

== ENCOUNTER 2021-11-22 08:22 | Emergency (ER) | payer MEDICARE, BC, OTHER ==
[~2021-11-22] VITALS: Ht 152.4 cm; Wt 55.6 kg
[2021-11-22] MEDS ORDERED: DILT12SRCA (08:47)
[2021-11-22] MEDS ORDERED: BUSP5TA (08:47)
[2021-11-22 09:33] LABS: BASO # 0.1 10^3/uL (0.0-0.2); BASO % 0.7 % (0.0-1.0); EOS # 0.2 10^3/uL (0.0-0.5); EOS % 1.3 % (0.0-3.0); HEMATOCRIT 43.5 % (36.0-47.0); HEMOGLOBIN 14.4 g/dl (12.0-15.5); LYMPH # 1.7 10^3/uL (1.5-5.0); LYMPH % 14.2 % (24.0-44.0); MEAN CORPUSCULAR HEMOGLOBIN 31.4 pg (27.0-33.0); MEAN CORPUSCULAR HGB CONC 33.1 g/dl (32.0-36.5); MONO # 0.9 10^3/uL (0.0-0.8); MONO % 7.5 % (2.0-8.0); NEUTROPHILS # 8.9 10^3/uL (1.5-8.5); NEUTROPHILS % 75.6 % (36.0-66.0); PLATELET COUNT, AUTOMATED 272 10^3/uL (150-450); RED BLOOD COUNT 4.58 10^6/uL (4.00-5.40); WHITE BLOOD COUNT 11.8 10^3/uL (4.0-10.0)
[2021-11-22 09:58] LABS: CREATININE FOR GFR 1.03 MG/DL (0.55-1.30); GLOMERULAR FILTRATION RATE 54.6 (>32)
[2021-11-22] MEDS ORDERED: ISOVUE-370 76% 100ML VIAL As Ordered ONE (10:10)
[2021-11-22] MEDS ORDERED: LR 500 ML IV ONE (10:20)
[2021-11-22] MEDS ORDERED: PEPC1TAB5 PO (11:26)
[2021-11-22 11:31] VITALS: BP 134/57
== END 2021-11-22 11:41 | disposition home or self-care (01) ==
LOC: M ED 08:22
DX: R10.9 Unspecified abdominal pain (principal); R19.7 Diarrhea, unspecified; I10 Essential (primary) hypertension; K21.9 Gastro-esophageal reflux disease without esophagitis; Z86.19 Personal history of other infectious and parasitic diseases; Z79.899 Other long term (current) drug therapy; Z79.890 Hormone replacement therapy; Z79.82 Long term (current) use of aspirin; Z88.1 Allergy status to other antibiotic agents; Z88.2 Allergy status to sulfonamides; Z88.8 Allergy status to other drugs, medicaments and biological substances
CPT/HCPCS: 74177; 80048; 83690; 85025; 96360; 99284; Q9967

== ENCOUNTER → 2021-12-22 | Outpatient (CLI) | payer MEDICARE, BC, OTHER ==
[~2021-12-22] MED LIST changes: +BUSP5TA PO; +DICY10CA13 PO; +DILT12SRCA; +FLORCAP6 PO; +PEPC1TAB5 PO; +SODI2OPD OU; +VANC125C3 PO; +VITA100093 PO
== END ==
LOC: M LABSMTC 09:09
PROVIDERS: ATTEND Anesthesiology
DX: Z01.818 Encounter for other preprocedural examination (principal); Z11.52 Encounter for screening for COVID-19

== ENCOUNTER → 2021-12-22 | Outpatient (REF) | payer MEDICARE, BC, OTHER ==
[~2021-12-22] MED LIST changes: -DILT12SRCA; +DILT12SRCA PO; +SODI2OPD OD
== END ==
LOC: M LAB REF 09:02
PROVIDERS: ATTEND Internal Medicine Gastroenterology
DX: A04.72 Enterocolitis due to Clostridium difficile, not specified as recurrent (principal); R19.7 Diarrhea, unspecified

== ENCOUNTER 2021-12-25 12:04 | Day surgery (SDC) | payer MEDICARE, BC, OTHER ==
[~2021-12-25] VITALS: Ht 154.9 cm; Wt 49.4 kg
[~2021-12-25 12:04] MED LIST changes: +DILT12SRCA; -DILT12SRCA PO; +FECAL MICROBIOTA TRANSPLANT PREPARATION 35ML BAG XX ONE; +NS 1,000 ML IV ONE; -SODI2OPD OD
[2021-12-25] MEDS ORDERED: SODI2OPD OD (12:49)
[2021-12-25] MEDS ORDERED: LIDOCAINE 2% 100MG/5ML SDV (FOR ANES.) As Ordered ONE (12:52)
[2021-12-25] MEDS ORDERED: propofoL 200 MG/20 ML VIAL As Ordered ONE (12:52)
[2021-12-25] MEDS ORDERED: PHENYLephrine 500MCG 5ML (100MCG/ML) SYRINGE As Ordered ONE (15:08)
[2021-12-25 15:47] VITALS: BP 147/66
== END 2021-12-25 15:47 | disposition home or self-care (01) ==
LOC: M OPP 12:04
PROVIDERS: ATTEND Internal Medicine Gastroenterology
DX: A04.72 Enterocolitis due to Clostridium difficile, not specified as recurrent (principal); I10 Essential (primary) hypertension; E03.9 Hypothyroidism, unspecified; F41.9 Anxiety disorder, unspecified; F17.200 Nicotine dependence, unspecified, uncomplicated; Z79.02 Long term (current) use of antithrombotics/antiplatelets; Z79.2 Long term (current) use of antibiotics; Z79.82 Long term (current) use of aspirin; Z79.899 Other long term (current) drug therapy; Z88.1 Allergy status to other antibiotic agents; Z88.2 Allergy status to sulfonamides; Z88.8 Allergy status to other drugs, medicaments and biological substances; Z86.39 Personal history of other endocrine, nutritional and metabolic disease; Z83.71 Family history of colonic polyps; Z80.7 Family history of other malignant neoplasms of lymphoid, hematopoietic and related tissues
CPT/HCPCS: 45378; J2370

== ENCOUNTER → 2021-12-30 | Outpatient (REF) | payer MEDICARE, BC, OTHER ==
[~2021-12-30] MED LIST changes: -DILT12SRCA; +DILT12SRCA PO; -FECAL MICROBIOTA TRANSPLANT PREPARATION 35ML BAG XX ONE; -NS 1,000 ML IV ONE; +SODI2OPD OD
== END ==
LOC: M LAB REF 18:33
PROVIDERS: ATTEND Internal Medicine Infectious Disease
DX: A04.71 Enterocolitis due to Clostridium difficile, recurrent (principal)

== ENCOUNTER 2021-12-31 16:04 | Outpatient (CLI) | payer MEDICARE, BC, OTHER ==
[~2021-12-31] VITALS: Ht 160 cm; Wt 50.0 kg
[~2021-12-31 16:04] MED LIST changes: +BEZLOTOXUMAB 500 MG in NS 100 ML IV ONE
[2021-12-31 16:28] VITALS: BP 117/56
[2021-12-31 17:41] VITALS: BP 143/67
== END 2021-12-31 17:45 ==
LOC: M INFU 16:04
PROVIDERS: ATTEND Internal Medicine Infectious Disease
DX: A04.71 Enterocolitis due to Clostridium difficile, recurrent (principal); Z88.2 Allergy status to sulfonamides; Z88.1 Allergy status to other antibiotic agents; Z88.8 Allergy status to other drugs, medicaments and biological substances
CPT/HCPCS: 96365; J0565

== ENCOUNTER 2022-01-01 09:42 | Emergency (ER) | payer MEDICARE, BC, OTHER ==
[~2022-01-01] VITALS: Ht 154.9 cm; Wt 50.0 kg
[~2022-01-01 09:42] MED LIST changes: -BEZLOTOXUMAB 500 MG in NS 100 ML IV ONE
[2022-01-01 10:51] LABS: HEMATOCRIT 41.6 % (36.0-47.0); HEMOGLOBIN 13.9 g/dl (12.0-15.5); MEAN CORPUSCULAR HEMOGLOBIN 31.1 pg (27.0-33.0); MEAN CORPUSCULAR HGB CONC 33.4 g/dl (32.0-36.5); MEAN CORPUSCULAR VOLUME 93.1 fl (80.0-96.0); PLATELET COUNT, AUTOMATED 281 10^3/uL (150-450); RED BLOOD COUNT 4.47 10^6/uL (4.00-5.40); WHITE BLOOD COUNT 12.6 10^3/uL (4.0-10.0)
[2022-01-01 11:23] LABS: BLOOD UREA NITROGEN 18 MG/DL (7-18); CALCIUM LEVEL 9.4 MG/DL (8.8-10.2); CARBON DIOXIDE LEVEL 27 MEQ/L (21-32); CHLORIDE LEVEL 103 MEQ/L (98-107); CREATININE FOR GFR 0.94 MG/DL (0.55-1.30); GLOMERULAR FILTRATION RATE > 60.0 (>32); GLUCOSE, FASTING 106 MG/DL (70-100); SODIUM LEVEL 137 MEQ/L (136-145)
[2022-01-01] MEDS ORDERED: PANTOPRAZOLE 40MG VIAL IV ONE (12:25)
[2022-01-01] MEDS ORDERED: NS 1,000 ML IV ONE (12:25)
[2022-01-01] MEDS ORDERED: ISOVUE-370 76% 100ML VIAL As Ordered ONE (12:30)
[2022-01-01] MEDS ORDERED: HOME MED LIST COMPLETE! XX SCH (15:30)
[2022-01-01] MEDS ORDERED: NS 1,000 ML IV SCH (15:35)
[2022-01-01 16:05] VITALS: BP 137/60
[2022-01-01] MEDS ORDERED: metroNIDAZOLE 500 MG in IV 1 EA IV SCH (17:00)
[2022-01-01] MEDS ORDERED: CIPROFLOXACIN 400 MG in IV 1 EA IV SCH (18:00)
== END 2022-01-01 16:49 | disposition home or self-care (01) ==
LOC: M ED 09:42
DX: K55.9 Vascular disorder of intestine, unspecified (principal); I71.4 Abdominal aortic aneurysm, without rupture; K76.89 Other specified diseases of liver; Z90.49 Acquired absence of other specified parts of digestive tract; I70.0 Atherosclerosis of aorta; I10 Essential (primary) hypertension; E78.5 Hyperlipidemia, unspecified; H40.9 Unspecified glaucoma; K57.32 Diverticulitis of large intestine without perforation or abscess without bleeding; E03.9 Hypothyroidism, unspecified; F41.9 Anxiety disorder, unspecified; Z88.1 Allergy status to other antibiotic agents; Z88.2 Allergy status to sulfonamides; Z88.8 Allergy status to other drugs, medicaments and biological substances; F17.210 Nicotine dependence, cigarettes, uncomplicated; Z79.82 Long term (current) use of aspirin; Z79.890 Hormone replacement therapy; Z79.899 Other long term (current) drug therapy
CPT/HCPCS: 74177; 80048; 83605; 85027; 86850; 86900; 86901; 87635; 96361; 96374; 99284; C9113; Q9967

== ENCOUNTER → 2022-08-04 | Outpatient (CLI) | payer MEDICARE, BC, OTHER ==
[2022-08-04 12:15] LABS: BASO # 0.1 10^3/uL (0.0-0.2); BASO % 0.5 % (0.0-1.0); EOS # 0.3 10^3/uL (0.0-0.5); EOS % 2.2 % (0.0-3.0); HEMATOCRIT 39.2 % (36.0-47.0); HEMOGLOBIN 12.3 g/dl (12.0-15.5); LYMPH # 2.1 10^3/uL (1.5-5.0); LYMPH % 18.5 % (24.0-44.0); MEAN CORPUSCULAR HEMOGLOBIN 29.4 pg (27.0-33.0); MEAN CORPUSCULAR HGB CONC 31.4 g/dl (32.0-36.5); MEAN CORPUSCULAR VOLUME 93.8 fl (80.0-96.0); MONO # 1.2 10^3/uL (0.0-0.8); MONO % 10.5 % (2.0-8.0); NEUTROPHILS # 7.4 10^3/uL (1.5-8.5); NEUTROPHILS % 66.4 % (36.0-66.0); PLATELET COUNT, AUTOMATED 244 10^3/uL (150-450); RED BLOOD COUNT 4.18 10^6/uL (4.00-5.40); WHITE BLOOD COUNT 11.2 10^3/uL (4.0-10.0)
[2022-08-04 12:49] LABS: ALBUMIN 3.7 G/DL (3.2-5.2); ALKALINE PHOSPHATASE 95 U/L (46-116); ALT/SGPT 17 U/L (7.0-40); AST/SGOT 17 U/L (<34); BILIRUBIN,TOTAL 0.6 MG/DL (0.3-1.2); BLOOD UREA NITROGEN 19 MG/DL (9-23); CALCIUM LEVEL 8.6 MG/DL (8.3-10.6); CARBON DIOXIDE LEVEL 27 MMOL/L (20-31); CHLORIDE LEVEL 106 MMOL/L (98-107); CREATININE FOR GFR 0.77 MG/DL (0.55-1.30); FREE T4 1.19 NG/DL (0.89-1.76); GLOMERULAR FILTRATION RATE > 60.0 (>32); GLUCOSE, FASTING 96 MG/DL (74-106); MAGNESIUM LEVEL 1.9 MG/DL (1.8-2.4); POTASSIUM SERUM 4.2 MMOL/L (3.5-5.1); SODIUM LEVEL 138 MMOL/L (136-145); THYROID STIMULATING HORMONE 3.266 uIU/ML (0.55-4.78); TOTAL PROTEIN 6.7 G/DL (5.7-8.2)
== END ==
LOC: M LAB 11:24
PROVIDERS: ATTEND Nurse Practitioner Family
DX: R60.0 Localized edema (principal)

== ENCOUNTER → 2022-08-30 | Outpatient (CLI) | payer MEDICARE, BC, OTHER | LOC: M WHC 12:52 | PROVIDERS: ATTEND Nurse Practitioner Family | DX: Z13.820 Encounter for screening for osteoporosis (principal); M85.88 Other specified disorders of bone density and structure, other site; M85.851 Other specified disorders of bone density and structure, right thigh; M85.852 Other specified disorders of bone density and structure, left thigh ==

== ENCOUNTER → 2022-11-09 | Outpatient (CLI) | payer MEDICARE, BC, OTHER ==
[2022-11-09 09:51] LABS: BLOOD UREA NITROGEN 22 MG/DL (9-23); GLOMERULAR FILTRATION RATE > 60.0 (>32)
== END ==
LOC: M LAB 08:48
PROVIDERS: ATTEND Physician Assistant
DX: I70.213 Atherosclerosis of native arteries of extremities with intermittent claudication, bilateral legs (principal); Z48.812 Encounter for surgical aftercare following surgery on the circulatory system; I71.43 Infrarenal abdominal aortic aneurysm, without rupture

== ENCOUNTER → 2023-01-07 | Outpatient (CLI) | payer MEDICARE, BC, OTHER ==
[~2023-01-07] MED LIST changes: +DICY-61 PO; -DICY10CA13 PO
== END ==
LOC: M WUC 13:58
PROVIDERS: ATTEND Physician Assistant
DX: R06.02 Shortness of breath (principal); R05.9 Cough, unspecified

== ENCOUNTER → 2023-02-15 | Outpatient (CLI) | payer MEDICARE, BC, OTHER | LOC: M RAD 08:54 | PROVIDERS: ATTEND Surgery Vascular Surgery | DX: K76.9 Liver disease, unspecified (principal); N28.9 Disorder of kidney and ureter, unspecified ==

== ENCOUNTER → 2023-03-28 | Outpatient (CLI) | payer MEDICARE, BC, OTHER ==
[~2023-03-28] MED LIST changes: +ALBU8.5H PO; +BUSP1TAB PO; +FERR325T3 PO; +MONT10TA97 PO; +SYNT88TA2 PO; +TREL1AER PO
== END ==
LOC: M SOG 08:02
PROVIDERS: ATTEND Orthopaedic Surgery
DX: M54.50 Low back pain, unspecified (principal)

== ENCOUNTER 2023-03-29 09:37 | Observation (INO) | payer MEDICARE, BC, OTHER ==
[~2023-03-29] VITALS: Ht 154.9 cm; Wt 58.4 kg
[2023-03-29] VITALS (10 sets, daily range): BP systolic 156–168; BP diastolic 46–85; TEMP 96.5–98.6; O2SAT 92–100
[~2023-03-29 09:37] MED LIST changes: -ALBU8.5H PO; -BUSP1TAB PO; -FERR325T3 PO; -MONT10TA97 PO; -SYNT88TA2 PO; -TREL1AER PO
[2023-03-29] MEDS ORDERED: MONT10TA97 PO (09:48)
[2023-03-29 10:36] LABS: INR 1.2; PROTHROMBIN TIME 14.8 SECONDS (12.5-14.5)
[2023-03-29 10:37] LABS: PARTIAL THROMBOPLASTIN TIME 29.3 SECONDS (24.8-34.2)
[2023-03-29 10:49] LABS: BASO # 0.1 10^3/uL (0.0-0.2); BASO % 0.9 % (0.0-1.0); EOS # 0.2 10^3/uL (0.0-0.5); EOS % 1.7 % (0.0-3.0); HEMATOCRIT 23.8 % (36.0-47.0); LYMPH # 2.2 10^3/uL (1.5-5.0); LYMPH % 16.4 % (24.0-44.0); MEAN CORPUSCULAR HEMOGLOBIN 17.5 pg (27.0-33.0); MEAN CORPUSCULAR HGB CONC 25.2 g/dl (32.0-36.5); MEAN CORPUSCULAR VOLUME 69.6 fl (80.0-96.0); MONO # 1.2 10^3/uL (0.0-0.8); NEUTROPHILS # 9.5 10^3/uL (1.5-8.5); NEUTROPHILS % 71.3 % (36.0-66.0); PLATELET COUNT, AUTOMATED 393 10^3/uL (150-450); RED BLOOD COUNT 3.42 10^6/uL (4.00-5.40); WHITE BLOOD COUNT 13.3 10^3/uL (4.0-10.0)
[2023-03-29 10:50] LABS: IRON (FE) 15 UG/DL (50-170); PERCENT SATURATION 3.6 % (13.2-45.0); TOTAL IRON BINDING CAPACITY 416 UG/DL (250-425)
[2023-03-29 10:52] LABS: FERRITIN < 0.9 NG/ML (7.3-270.7); VITAMIN B12 LEVEL 574 PG/ML (211-911)
[2023-03-29 10:58] LABS: RSV AMPLIFICATION NEGATIVE (NEGATIVE)
[2023-03-29] MEDS ORDERED: MED REC IN PROGRESS XX SCH (11:55)
[2023-03-29] MEDS ORDERED: BUSP1TAB PO (12:08)
[2023-03-29] MEDS ORDERED: SYNT88TA2 PO (12:08)
[2023-03-29] MEDS ORDERED: ALBU8.5H PO (12:08)
[2023-03-29] MEDS ORDERED: TREL1AER PO (12:08)
[2023-03-29] MEDS ORDERED: HOME MED LIST COMPLETE! XX SCH (12:10)
[2023-03-29] MEDS ORDERED: ACETAMINOPHEN TAB 650MG DOSE (2X325MG) PO PRN (13:25)
[2023-03-29 13:54] LABS: MAGNESIUM LEVEL 1.8 MG/DL (1.8-2.4)
[2023-03-29 14:35] LABS: HEMATOCRIT 24.6 % (36.0-47.0)
[2023-03-29 14:36] LABS: HEMOGLOBIN 6.7 g/dl (12.0-15.5)
[2023-03-29 15:06] LABS: BLOOD UREA NITROGEN 21 MG/DL (9-23); CALCIUM LEVEL 8.7 MG/DL (8.3-10.6); CARBON DIOXIDE LEVEL 25 MMOL/L (20-31); CHLORIDE LEVEL 106 MMOL/L (98-107); CREATININE FOR GFR 0.75 MG/DL (0.55-1.30); GLOMERULAR FILTRATION RATE > 60.0 (>32); GLUCOSE, FASTING 109 MG/DL (74-106); POTASSIUM SERUM 4.4 MMOL/L (3.5-5.1); SODIUM LEVEL 139 MMOL/L (136-145)
[2023-03-29] MEDS ORDERED: ALBUTEROL 90 MCG/ACT 8GM HFA INHALER INH PRN (15:50)
[2023-03-29] MEDS ORDERED: PILL CUTTER 1 EACH XX PRN (16:05)
[2023-03-29 16:08] LABS: APPEARANCE, URINE CLEAR (CLEAR); BACTERIA, URINE AUTO NEGATIVE (NEGATIVE); BILIRUBIN, URINE AUTO NEGATIVE (NEGATIVE); BLOOD, URINE BLOOD NEGATIVE (NEGATIVE); COLOR, URINE YELLOW (YELLOW); GLUCOSE, URINE (UA) AUTO NEGATIVE (NEGATIVE); KETONE, URINE AUTO NEGATIVE (NEGATIVE); LEUKOCYTE ESTERASE, URINE AUTO TRACE (NEGATIVE); MUCUS, URINE SMALL (NEGATIVE); NITRITE, URINE AUTO NEGATIVE (NEGATIVE); PROTEIN, URINE AUTO 2+ mg/dL (NEGATIVE); RBC, URINE AUTO 1 /HPF (0-3); SPECIFIC GRAVITY URINE AUTO 1.018 (1.002-1.035); SQUAMOUS EPITHELIAL CELL UR AU 0 /HPF (0-6); UROBILINOGEN, URINE AUTO 0.2 mg/dL (0.0-2.0); WBC, URINE AUTO 2 /HPF (0-3)
[2023-03-29] MEDS: busPIRone 5 MG TAB PO SCH (20:23)
[2023-03-29] MEDS: dilTIAZem 120MG **CD** CAPSULE PO SCH (20:24)
[2023-03-29] MEDS: BRIMONIDINE 0.15% OPHTH SOLN 5 ML OU SCH (20:24)
[2023-03-29] MEDS ORDERED: LATANOPROST 0.005% OPHTH SOLN 2.5 ML OU SCH (21:00)
[2023-03-29 21:16] LABS: HEMATOCRIT 25.5 % (36.0-47.0); HEMOGLOBIN 7.4 g/dl (12.0-15.5)
[2023-03-30 03:37] LABS: HEMATOCRIT 26.1 % (36.0-47.0); HEMOGLOBIN 7.4 g/dl (12.0-15.5)
[2023-03-30 05:34] VITALS: BP 156/57; TEMP 97.9; O2SAT 95
[2023-03-30] MEDS ORDERED: LEVOTHYROXINE 88MCG TABLET (0.088 MG) PO SCH (06:00)
[2023-03-30] MEDS: BRIMONIDINE 0.15% OPHTH SOLN 5 ML OU SCH (07:35)
[2023-03-30 07:38] VITALS: BP 166/55
[2023-03-30] MEDS: dilTIAZem 120MG **CD** CAPSULE PO SCH (07:38)
[2023-03-30] MEDS: busPIRone 5 MG TAB PO SCH (07:44)
[2023-03-30] MEDS ORDERED: MONTELUKAST 10 MG TAB PO SCH (09:00)
[2023-03-30] MEDS ORDERED: DIGOXIN 0.125 MG TAB PO SCH (09:00)
[2023-03-30] MEDS ORDERED: FERRIC CARBOXYMALTOSE INJ 750 MG, VIAL MATE ADAPTER 1 EACH in NS 250 ML IV ONE (09:00)
[2023-03-30 09:15] LABS: BASO # 0.1 10^3/uL (0.0-0.2); BASO % 0.7 % (0.0-1.0); EOS # 0.3 10^3/uL (0.0-0.5); EOS % 2.9 % (0.0-3.0); HEMOGLOBIN 7.9 g/dl (12.0-15.5); LYMPH # 1.3 10^3/uL (1.5-5.0); LYMPH % 13.6 % (24.0-44.0); MEAN CORPUSCULAR HEMOGLOBIN 21.8 pg (27.0-33.0); MEAN CORPUSCULAR HGB CONC 29.3 g/dl (32.0-36.5); MEAN CORPUSCULAR VOLUME 74.6 fl (80.0-96.0); MONO % 10.5 % (2.0-8.0); NEUTROPHILS # 6.7 10^3/uL (1.5-8.5); NEUTROPHILS % 70.9 % (36.0-66.0); RED BLOOD COUNT 3.62 10^6/uL (4.00-5.40); WHITE BLOOD COUNT 9.4 10^3/uL (4.0-10.0)
[2023-03-30 09:17] LABS: PLATELET COUNT, AUTOMATED 277 10^3/uL (150-450)
[2023-03-30] MEDS ORDERED: FERR325T3 PO (13:34)
[2023-03-30 14:00] VITALS: BP 169/45; TEMP 97.9; O2SAT 93
== END 2023-03-30 14:33 | disposition home or self-care (01) ==
LOC: M ED 09:37 → M ED INP 13:22 → ENRESERV 14:28 → M MSPAV 15:03
PROVIDERS: ADMIT Student in an Organized Health Care Education/Training Program; ATTEND Student in an Organized Health Care Education/Training Program
DX: D50.9 Iron deficiency anemia, unspecified (principal); I11.0 Hypertensive heart disease with heart failure; E89.0 Postprocedural hypothyroidism; E78.5 Hyperlipidemia, unspecified; I50.30 Unspecified diastolic (congestive) heart failure; I47.10 Supraventricular tachycardia, unspecified; Z86.79 Personal history of other diseases of the circulatory system; Z95.1 Presence of aortocoronary bypass graft; Z95.5 Presence of coronary angioplasty implant and graft; Z86.16 Personal history of COVID-19; R53.83 Other fatigue; F32.A Depression, unspecified; Z79.899 Other long term (current) drug therapy; Z79.890 Hormone replacement therapy; Z88.1 Allergy status to other antibiotic agents; Z88.2 Allergy status to sulfonamides; Z88.8 Allergy status to other drugs, medicaments and biological substances; Z87.891 Personal history of nicotine dependence; I10 Essential (primary) hypertension
CPT/HCPCS: 36415; 36430; 80048; 80053; 81001; 82607; 82728; 83550; 83735; 85014; 85018; 85025; 85046; 85610; 85730; 86850; 86900; 86901; 86920; 87631; 93005; 96374; 99285; G0378; J1439; P9016

== ENCOUNTER → 2023-03-29 | Outpatient (CLI) | payer MEDICARE, BC, OTHER ==
[2023-03-29 08:54] LABS: BASO # 0.1 10^3/uL (0.0-0.2); BASO % 0.6 % (0.0-1.0); EOS # 0.2 10^3/uL (0.0-0.5); EOS % 1.9 % (0.0-3.0); HEMATOCRIT 23.4 % (36.0-47.0); LYMPH # 1.8 10^3/uL (1.5-5.0); LYMPH % 16.4 % (24.0-44.0); MEAN CORPUSCULAR HEMOGLOBIN 17.3 pg (27.0-33.0); MEAN CORPUSCULAR HGB CONC 23.9 g/dl (32.0-36.5); MEAN CORPUSCULAR VOLUME 72.4 fl (80.0-96.0); MONO # 1.2 10^3/uL (0.0-0.8); MONO % 10.3 % (2.0-8.0); NEUTROPHILS # 7.9 10^3/uL (1.5-8.5); NEUTROPHILS % 70.1 % (36.0-66.0); PLATELET COUNT, AUTOMATED 352 10^3/uL (150-450); RED BLOOD COUNT 3.23 10^6/uL (4.00-5.40); WHITE BLOOD COUNT 11.2 10^3/uL (4.0-10.0)
[2023-03-29 09:01] LABS: HEMOGLOBIN 5.6 g/dl (12.0-15.5)
[2023-03-29 09:20] LABS: ALBUMIN 3.3 G/DL (3.2-5.2); ALKALINE PHOSPHATASE 77 U/L (46-116); ALT/SGPT < 9 U/L (7.0-40); AST/SGOT 10 U/L (<34); BILIRUBIN,TOTAL 0.7 MG/DL (0.3-1.2); BLOOD UREA NITROGEN 18 MG/DL (9-23); CALCIUM LEVEL 8.8 MG/DL (8.3-10.6); CARBON DIOXIDE LEVEL 23 MMOL/L (20-31); CHLORIDE LEVEL 108 MMOL/L (98-107); CREATININE FOR GFR 0.74 MG/DL (0.55-1.30); GLOMERULAR FILTRATION RATE > 60.0 (>32); GLUCOSE, FASTING 89 MG/DL (74-106); POTASSIUM SERUM 4.6 MMOL/L (3.5-5.1); SODIUM LEVEL 139 MMOL/L (136-145); TOTAL PROTEIN 6.3 G/DL (5.7-8.2)
== END ==
LOC: M LAB 08:04
PROVIDERS: ATTEND Nurse Practitioner Family
DX: I10 Essential (primary) hypertension (principal)

== ENCOUNTER → 2023-04-15 | Outpatient (CLI) | payer MEDICARE, BC, OTHER ==
[~2023-04-15] MED LIST changes: +ALBU8.5H PO; +BUSP1TAB PO; +FERR325T3 PO; +MONT10TA97 PO; +SYNT88TA2 PO; +TREL1AER PO
[2023-04-15 07:49] LABS: BASO # 0.1 10^3/uL (0.0-0.2); BASO % 0.8 % (0.0-1.0); EOS # 0.2 10^3/uL (0.0-0.5); EOS % 2.1 % (0.0-3.0); HEMATOCRIT 42.6 % (36.0-47.0); HEMOGLOBIN 12.5 g/dl (12.0-15.5); LYMPH # 1.8 10^3/uL (1.5-5.0); LYMPH % 16.5 % (24.0-44.0); MEAN CORPUSCULAR HEMOGLOBIN 25.6 pg (27.0-33.0); MEAN CORPUSCULAR HGB CONC 29.3 g/dl (32.0-36.5); MEAN CORPUSCULAR VOLUME 87.1 fl (80.0-96.0); MONO # 1.1 10^3/uL (0.0-0.8); MONO % 9.9 % (2.0-8.0); NEUTROPHILS # 7.8 10^3/uL (1.5-8.5); NEUTROPHILS % 70.2 % (36.0-66.0); PLATELET COUNT, AUTOMATED 259 10^3/uL (150-450); RED BLOOD COUNT 4.89 10^6/uL (4.00-5.40); WHITE BLOOD COUNT 11.2 10^3/uL (4.0-10.0)
[2023-04-15 08:10] LABS: IRON (FE) 40 UG/DL (50-170); PERCENT SATURATION 11.9 % (13.2-45.0); TOTAL IRON BINDING CAPACITY 337 UG/DL (250-425)
[2023-04-15 08:12] LABS: FERRITIN 135.7 NG/ML (7.3-270.7)
[2023-04-15 08:26] LABS: ALBUMIN 3.7 G/DL (3.2-5.2); ALKALINE PHOSPHATASE 80 U/L (46-116); ALT/SGPT 21 U/L (7.0-40); AST/SGOT 21 U/L (<34); BILIRUBIN,TOTAL 0.8 MG/DL (0.3-1.2); BLOOD UREA NITROGEN 18 MG/DL (9-23); CALCIUM LEVEL 9.2 MG/DL (8.3-10.6); CARBON DIOXIDE LEVEL 26 MMOL/L (20-31); CHLORIDE LEVEL 106 MMOL/L (98-107); CREATININE FOR GFR 0.83 MG/DL (0.55-1.30); GLOMERULAR FILTRATION RATE > 60.0 (>32); GLUCOSE, FASTING 109 MG/DL (74-106); POTASSIUM SERUM 4.8 MMOL/L (3.5-5.1); SODIUM LEVEL 140 MMOL/L (136-145); TOTAL PROTEIN 6.9 G/DL (5.7-8.2)
== END ==
LOC: M LAB 07:12
PROVIDERS: ATTEND Nurse Practitioner Family
DX: D50.9 Iron deficiency anemia, unspecified (principal)

== ENCOUNTER → 2023-05-16 | Outpatient (CLI) | payer MEDICARE, BC, OTHER ==
[2023-05-16 07:43] LABS: BASO # 0.1 10^3/uL (0.0-0.2); BASO % 0.6 % (0.0-1.0); EOS # 0.3 10^3/uL (0.0-0.5); EOS % 2.3 % (0.0-3.0); HEMATOCRIT 39.4 % (36.0-47.0); HEMOGLOBIN 12.2 g/dl (12.0-15.5); LYMPH # 1.6 10^3/uL (1.5-5.0); LYMPH % 14.5 % (24.0-44.0); MEAN CORPUSCULAR HEMOGLOBIN 29.1 pg (27.0-33.0); MONO # 1.1 10^3/uL (0.0-0.8); MONO % 9.6 % (2.0-8.0); NEUTROPHILS # 8.1 10^3/uL (1.5-8.5); NEUTROPHILS % 72.4 % (36.0-66.0); PLATELET COUNT, AUTOMATED 257 10^3/uL (150-450); RED BLOOD COUNT 4.19 10^6/uL (4.00-5.40); WHITE BLOOD COUNT 11.1 10^3/uL (4.0-10.0)
[2023-05-16 08:09] LABS: FERRITIN 33.6 NG/ML (7.3-270.7)
== END ==
LOC: M LAB 06:54
PROVIDERS: ATTEND Nurse Practitioner Family
DX: D50.9 Iron deficiency anemia, unspecified (principal)

== ENCOUNTER → 2023-06-29 | Outpatient (CLI) | payer MEDICARE, BC, OTHER | LOC: M SOG 08:03 | PROVIDERS: ATTEND Orthopaedic Surgery | DX: M54.50 Low back pain, unspecified (principal) ==

== ENCOUNTER → 2023-07-08 | Outpatient (CLI) | payer MEDICARE, BC, OTHER ==
[2023-07-08 07:05] LABS: BASO # 0.1 10^3/uL (0.0-0.2); BASO % 0.7 % (0.0-1.0); EOS # 0.3 10^3/uL (0.0-0.5); EOS % 2.4 % (0.0-3.0); HEMATOCRIT 38.9 % (36.0-47.0); HEMOGLOBIN 12.4 g/dl (12.0-15.5); LYMPH # 1.7 10^3/uL (1.5-5.0); LYMPH % 14.2 % (24.0-44.0); MEAN CORPUSCULAR HEMOGLOBIN 30.9 pg (27.0-33.0); MEAN CORPUSCULAR HGB CONC 31.9 g/dl (32.0-36.5); MONO # 1.2 10^3/uL (0.0-0.8); MONO % 9.9 % (2.0-8.0); NEUTROPHILS # 8.4 10^3/uL (1.5-8.5); PLATELET COUNT, AUTOMATED 257 10^3/uL (150-450); RED BLOOD COUNT 4.01 10^6/uL (4.00-5.40); WHITE BLOOD COUNT 11.7 10^3/uL (4.0-10.0)
[2023-07-08 07:34] LABS: IRON (FE) 28 UG/DL (50-170); PERCENT SATURATION 7.7 % (13.2-45.0); TOTAL IRON BINDING CAPACITY 363 UG/DL (250-425)
[2023-07-08 07:36] LABS: ALBUMIN 3.5 G/DL (3.2-5.2); ALKALINE PHOSPHATASE 91 U/L (46-116); ALT/SGPT 19 U/L (7.0-40); AST/SGOT 17 U/L (<34); BILIRUBIN,TOTAL 0.5 MG/DL (0.3-1.2); BLOOD UREA NITROGEN 20 MG/DL (9-23); CARBON DIOXIDE LEVEL 28 MMOL/L (20-31); CHLORIDE LEVEL 107 MMOL/L (98-107); CREATININE FOR GFR 0.75 MG/DL (0.55-1.30); GLOMERULAR FILTRATION RATE > 60.0 (>32); GLUCOSE, FASTING 116 MG/DL (74-106); POTASSIUM SERUM 4.3 MMOL/L (3.5-5.1); SODIUM LEVEL 140 MMOL/L (136-145); TOTAL PROTEIN 6.6 G/DL (5.7-8.2)
== END ==
LOC: M LAB 06:42
PROVIDERS: ATTEND Nurse Practitioner Family
DX: D50.9 Iron deficiency anemia, unspecified (principal)

== ENCOUNTER → 2023-08-22 | Outpatient (CLI) | payer MEDICARE, BC ==
[2023-08-22 17:31] LABS: BASO # 0.1 10^3/uL (0.0-0.2); BASO % 0.6 % (0.0-1.0); EOS # 0.3 10^3/uL (0.0-0.5); EOS % 2.4 % (0.0-3.0); HEMATOCRIT 42.5 % (36.0-47.0); HEMOGLOBIN 13.9 g/dl (12.0-15.5); LYMPH # 1.9 10^3/uL (1.5-5.0); MEAN CORPUSCULAR HEMOGLOBIN 31.7 pg (27.0-33.0); MEAN CORPUSCULAR HGB CONC 32.7 g/dl (32.0-36.5); MONO # 1.2 10^3/uL (0.0-0.8); MONO % 8.7 % (2.0-8.0); NEUTROPHILS % 73.6 % (36.0-66.0); PLATELET COUNT, AUTOMATED 271 10^3/uL (150-450); RED BLOOD COUNT 4.38 10^6/uL (4.00-5.40); WHITE BLOOD COUNT 13.5 10^3/uL (4.0-10.0)
[2023-08-22 18:23] LABS: IRON (FE) 76 UG/DL (50-170); PERCENT SATURATION 21.1 % (13.2-45.0); TOTAL IRON BINDING CAPACITY 360 UG/DL (250-425)
[2023-08-22 18:24] LABS: ALBUMIN 3.4 G/DL (3.2-5.2); ALKALINE PHOSPHATASE 107 U/L (46-116); ALT/SGPT 21 U/L (7.0-40); AST/SGOT 24 U/L (<34); BILIRUBIN,TOTAL 0.5 MG/DL (0.3-1.2); BLOOD UREA NITROGEN 19 MG/DL (9-23); CALCIUM LEVEL 8.9 MG/DL (8.3-10.6); CARBON DIOXIDE LEVEL 28 MMOL/L (20-31); CHLORIDE LEVEL 105 MMOL/L (98-107); CREATININE FOR GFR 0.79 MG/DL (0.55-1.30); GLOMERULAR FILTRATION RATE > 60.0 (>32); GLUCOSE, FASTING 104 MG/DL (74-106); POTASSIUM SERUM 4.6 MMOL/L (3.5-5.1); SODIUM LEVEL 140 MMOL/L (136-145); TOTAL PROTEIN 6.5 G/DL (5.7-8.2)
== END ==
LOC: M LAB 16:59
PROVIDERS: ATTEND Nurse Practitioner Family
DX: D50.9 Iron deficiency anemia, unspecified (principal)

== ENCOUNTER → 2023-09-20 | Outpatient (CLI) | payer MEDICARE, BC ==
[2023-09-20 12:49] LABS: BASO # 0.1 10^3/uL (0.0-0.2); BASO % 0.9 % (0.0-1.0); EOS # 0.3 10^3/uL (0.0-0.5); EOS % 2.1 % (0.0-3.0); HEMATOCRIT 46.6 % (36.0-47.0); HEMOGLOBIN 15.5 g/dl (12.0-15.5); LYMPH # 1.9 10^3/uL (1.5-5.0); MEAN CORPUSCULAR HEMOGLOBIN 31.5 pg (27.0-33.0); MEAN CORPUSCULAR HGB CONC 33.3 g/dl (32.0-36.5); MEAN CORPUSCULAR VOLUME 94.7 fl (80.0-96.0); MONO # 1.2 10^3/uL (0.0-0.8); MONO % 10.2 % (2.0-8.0); NEUTROPHILS # 8.2 10^3/uL (1.5-8.5); NEUTROPHILS % 70.2 % (36.0-66.0); PLATELET COUNT, AUTOMATED 271 10^3/uL (150-450); RED BLOOD COUNT 4.92 10^6/uL (4.00-5.40); WHITE BLOOD COUNT 11.7 10^3/uL (4.0-10.0)
[2023-09-20 13:15] LABS: IRON (FE) 56 UG/DL (50-170)
[2023-09-20 13:16] LABS: ALBUMIN 3.7 G/DL (3.2-5.2); ALKALINE PHOSPHATASE 104 U/L (46-116); ALT/SGPT 22 U/L (7.0-40); AST/SGOT 21 U/L (<34); BILIRUBIN,TOTAL 0.5 MG/DL (0.3-1.2); BLOOD UREA NITROGEN 18 MG/DL (9-23); CALCIUM LEVEL 9.5 MG/DL (8.3-10.6); CARBON DIOXIDE LEVEL 29 MMOL/L (20-31); CHLORIDE LEVEL 106 MMOL/L (98-107); GLOMERULAR FILTRATION RATE > 60.0 (>32); GLUCOSE, FASTING 94 MG/DL (74-106); PERCENT SATURATION 15.6 % (13.2-45.0); POTASSIUM SERUM 4.9 MMOL/L (3.5-5.1); SODIUM LEVEL 142 MMOL/L (136-145); TOTAL IRON BINDING CAPACITY 360 UG/DL (250-425); TOTAL PROTEIN 6.8 G/DL (5.7-8.2)
== END ==
LOC: M LAB 10:34
PROVIDERS: ATTEND Nurse Practitioner Family
DX: Z00.00 Encounter for general adult medical examination without abnormal findings (principal); D50.9 Iron deficiency anemia, unspecified

== ENCOUNTER → 2023-11-23 | Outpatient (CLI) | payer MEDICARE, BC ==
[2023-11-23 07:01] LABS: BASO # 0.1 10^3/uL (0.0-0.2); BASO % 0.8 % (0.0-1.0); EOS # 0.4 10^3/uL (0.0-0.5); EOS % 3.4 % (0.0-3.0); HEMATOCRIT 45.5 % (36.0-47.0); LYMPH # 1.6 10^3/uL (1.5-5.0); LYMPH % 14.6 % (24.0-44.0); MEAN CORPUSCULAR HEMOGLOBIN 31.1 pg (27.0-33.0); MEAN CORPUSCULAR VOLUME 94.4 fl (80.0-96.0); MONO % 9.2 % (2.0-8.0); NEUTROPHILS # 7.8 10^3/uL (1.5-8.5); NEUTROPHILS % 71.2 % (36.0-66.0); PLATELET COUNT, AUTOMATED 238 10^3/uL (150-450); RED BLOOD COUNT 4.82 10^6/uL (4.00-5.40)
[2023-11-23 07:32] LABS: FERRITIN 25.2 NG/ML (7.3-270.7)
[2023-11-23 07:33] LABS: FOLATE 21.77 NG/ML (>5.4)
== END ==
LOC: M LAB 06:12
PROVIDERS: ATTEND Internal Medicine Hematology
DX: E61.1 Iron deficiency (principal)

== ENCOUNTER 2023-12-02 11:29 | Outpatient (CLI) | payer MEDICARE, BC ==
[~2023-12-02] VITALS: Ht 154.9 cm; Wt 60.0 kg
[~2023-12-02 11:29] MED LIST changes: +ALBUTEROL SULFATE 2.5MG/0.5ML INH NEB SOLN INH PRN; +EPINEPHrine INJ 1 MG/ML 1ML AMP IM PRN; +NS 1,000 ML IV SCH; +diphenhydrAMINE 50MG/ML VIAL IV PRN; +methylPREDNISolone 125MG 2ML VIAL IV PRN
[2023-12-02 11:55] VITALS: BP 167/74; O2SAT 95
[2023-12-02] MEDS: IRON SUCROSE 200 MG in NS 100 ML IV ONE (12:06)
[2023-12-02] MEDS ORDERED: ECOT81TA5 PO (12:13)
[2023-12-02 13:15] VITALS: BP 143/65; O2SAT 97
== END 2023-12-02 13:15 ==
LOC: M INFU 11:29
PROVIDERS: ATTEND Internal Medicine Hematology
DX: D50.9 Iron deficiency anemia, unspecified (principal); Z88.1 Allergy status to other antibiotic agents; Z88.2 Allergy status to sulfonamides; Z88.8 Allergy status to other drugs, medicaments and biological substances
CPT/HCPCS: 96365; J1756

== ENCOUNTER 2023-12-16 12:15 | Outpatient (CLI) | payer MEDICARE, BC ==
[~2023-12-16] VITALS: Ht 154.9 cm; Wt 57.7 kg
[2023-12-16 12:15] VITALS: BP 153/77; O2SAT 94
[~2023-12-16 12:15] MED LIST changes: +ECOT81TA5 PO
[2023-12-16] MEDS: IRON SUCROSE 200 MG in NS 100 ML IV ONE (12:26)
[2023-12-16 13:31] VITALS: BP 160/84; O2SAT 93
== END 2023-12-16 13:45 ==
LOC: M INFU 12:15
PROVIDERS: ATTEND Internal Medicine Hematology
DX: D50.9 Iron deficiency anemia, unspecified (principal); Z88.2 Allergy status to sulfonamides; Z88.1 Allergy status to other antibiotic agents; Z88.8 Allergy status to other drugs, medicaments and biological substances
CPT/HCPCS: 96365; J1756

== ENCOUNTER 2023-12-22 07:57 | Observation (INO) | payer MEDICARE, BC ==
[~2023-12-22] VITALS: Ht 154.9 cm; Wt 60.1 kg
[~2023-12-22 07:57] MED LIST changes: -ALBUTEROL SULFATE 2.5MG/0.5ML INH NEB SOLN INH PRN; -EPINEPHrine INJ 1 MG/ML 1ML AMP IM PRN; -NS 1,000 ML IV SCH; -diphenhydrAMINE 50MG/ML VIAL IV PRN; -methylPREDNISolone 125MG 2ML VIAL IV PRN
[2023-12-22] MEDS ORDERED: DILT120C89 (08:10)
[2023-12-22] MEDS ORDERED: CAND8TAB8 PO (08:10)
[2023-12-22 08:58] LABS: BASO # 0.1 10^3/uL (0.0-0.2); BASO % 0.7 % (0.0-1.0); EOS # 0.1 10^3/uL (0.0-0.5); EOS % 0.6 % (0.0-3.0); HEMATOCRIT 46.8 % (36.0-47.0); HEMOGLOBIN 15.6 g/dl (12.0-15.5); LYMPH # 1.7 10^3/uL (1.5-5.0); LYMPH % 9.8 % (24.0-44.0); MEAN CORPUSCULAR HEMOGLOBIN 31.5 pg (27.0-33.0); MEAN CORPUSCULAR HGB CONC 33.3 g/dl (32.0-36.5); MEAN CORPUSCULAR VOLUME 94.4 fl (80.0-96.0); MONO # 1.4 10^3/uL (0.0-0.8); MONO % 8.2 % (2.0-8.0); NEUTROPHILS # 13.8 10^3/uL (1.5-8.5); NEUTROPHILS % 79.5 % (36.0-66.0); PLATELET COUNT, AUTOMATED 297 10^3/uL (150-450); RED BLOOD COUNT 4.96 10^6/uL (4.00-5.40); WHITE BLOOD COUNT 17.4 10^3/uL (4.0-10.0)
[2023-12-22 09:26] LABS: CREATININE FOR GFR 1.17 MG/DL (0.55-1.30); GLOMERULAR FILTRATION RATE 46.9 (>32); MAGNESIUM LEVEL 1.9 MG/DL (1.8-2.4)
[2023-12-22 09:27] LABS: THYROID STIMULATING HORMONE 5.696 uIU/ML (0.55-4.78)
[2023-12-22 10:05] LABS: DIGOXIN LEVEL 1.2 NG/ML (0.8-2.0)
[2023-12-22] MEDS ORDERED: ISOVUE-370 76% 100ML VIAL As Ordered ONE (10:25)
[2023-12-22 12:31] LABS: C REACTIVE PROTEIN QUANTITATIV 1.4 MG/DL (<1.0)
[2023-12-22 12:40] LABS: PROCALCITONIN 0.07 ng/ml
[2023-12-22] MEDS: NS 1,000 ML IV ONE (12:55)
[2023-12-22] MEDS ORDERED: VITA30004 PO (13:17)
[2023-12-22] MEDS ORDERED: DILT120C77 PO (13:19)
[2023-12-22] MEDS ORDERED: HOME MED LIST COMPLETE! XX SCH (13:20)
[2023-12-22 14:41] LABS: INR 1.14; PARTIAL THROMBOPLASTIN TIME 33.7 SECONDS (24.8-34.2); PROTHROMBIN TIME 14.3 SECONDS (12.5-14.5)
[2023-12-22 14:56] LABS: PERCENT SATURATION 10.2 % (13.2-45.0)
[2023-12-22 14:58] LABS: FERRITIN 112.9 NG/ML (7.3-270.7)
[2023-12-22 16:09] VITALS: BP 155/65; TEMP 97; O2SAT 97
[2023-12-22 20:16] VITALS: BP 164/70; TEMP 97.2; O2SAT 93
[2023-12-22] MEDS: BRIMONIDINE 0.15% OPHTH SOLN 5 ML OU SCH (20:18)
[2023-12-22] MEDS: LATANOPROST 0.005% OPHTH SOLN 2.5 ML OU SCH (20:18)
[2023-12-22] MEDS: ATORVASTATIN 20 MG TAB PO SCH (20:19)
[2023-12-22] MEDS: busPIRone 5 MG TAB PO SCH (20:19)
[2023-12-22] MEDS: dilTIAZem 120MG **CD** CAPSULE PO SCH (20:20)
[2023-12-22] MEDS ORDERED: dilTIAZem 60 MG TAB PO SCH (21:00)
[2023-12-22 23:43] VITALS: BP 164/70; TEMP 98.3; O2SAT 90
[2023-12-23 03:35] VITALS: BP 160/68; TEMP 98.1; O2SAT 90
[2023-12-23] MEDS: LEVOTHYROXINE 88MCG TABLET (0.088 MG) PO SCH (05:51)
[2023-12-23 06:21] LABS: MEAN CORPUSCULAR HEMOGLOBIN 31.5 pg (27.0-33.0); MEAN CORPUSCULAR HGB CONC 32.8 g/dl (32.0-36.5); PLATELET COUNT, AUTOMATED 208 10^3/uL (150-450); RED BLOOD COUNT 4.25 10^6/uL (4.00-5.40); WHITE BLOOD COUNT 11.9 10^3/uL (4.0-10.0)
[2023-12-23 06:25] LABS: HEMATOCRIT 40.8 % (36.0-47.0); HEMOGLOBIN 13.4 g/dl (12.0-15.5)
[2023-12-23 06:42] LABS: BLOOD UREA NITROGEN 23 MG/DL (9-23); CALCIUM LEVEL 8.2 MG/DL (8.3-10.6); CARBON DIOXIDE LEVEL 27 MMOL/L (20-31); CHLORIDE LEVEL 109 MMOL/L (98-107); CREATININE FOR GFR 0.91 MG/DL (0.55-1.30); GLOMERULAR FILTRATION RATE > 60.0 (>32); GLUCOSE, FASTING 82 MG/DL (74-106); POTASSIUM SERUM 4.2 MMOL/L (3.5-5.1); SODIUM LEVEL 139 MMOL/L (136-145)
[2023-12-23 07:40] VITALS: BP 154/66; TEMP 97.5; O2SAT 91
[2023-12-23 09:18] VITALS: BP 154/66
[2023-12-23] MEDS: dilTIAZem 120MG **CD** CAPSULE PO SCH (09:18)
[2023-12-23] MEDS: AZITHROMYCIN 250MG TABLET PO SCH (09:19)
[2023-12-23] MEDS: ASPIRIN 81MG ENTERIC TABLET PO SCH (09:19)
[2023-12-23] MEDS: DIGOXIN 0.125 MG TAB PO SCH (09:19)
[2023-12-23] MEDS ORDERED: DILT12SRCA PO (09:57)
[2023-12-23] MEDS ORDERED: DILT120C77 PO (09:57)
[2023-12-23] MEDS ORDERED: AZIT500T5 PO (09:57)
== END 2023-12-23 12:22 | disposition home or self-care (01) ==
LOC: M ED 07:57 → M ED INP 07:58 → M PCU 15:53
PROVIDERS: ADMIT Internal Medicine; ATTEND Internal Medicine
DX: A04.71 Enterocolitis due to Clostridium difficile, recurrent (principal); A04.5 Campylobacter enteritis; K92.1 Melena; I48.0 Paroxysmal atrial fibrillation; Z94.82 Intestine transplant status; I11.0 Hypertensive heart disease with heart failure; E78.5 Hyperlipidemia, unspecified; I50.30 Unspecified diastolic (congestive) heart failure; I47.10 Supraventricular tachycardia, unspecified; E03.9 Hypothyroidism, unspecified; D50.9 Iron deficiency anemia, unspecified; E55.9 Vitamin D deficiency, unspecified; R19.7 Diarrhea, unspecified; H40.9 Unspecified glaucoma; K76.0 Fatty (change of) liver, not elsewhere classified; K76.89 Other specified diseases of liver; F17.210 Nicotine dependence, cigarettes, uncomplicated; Z90.49 Acquired absence of other specified parts of digestive tract; Z98.41 Cataract extraction status, right eye; Z98.42 Cataract extraction status, left eye; Z98.51 Tubal ligation status; Z90.89 Acquired absence of other organs; Z86.79 Personal history of other diseases of the circulatory system; Z88.1 Allergy status to other antibiotic agents; Z88.8 Allergy status to other drugs, medicaments and biological substances; Z88.2 Allergy status to sulfonamides; Z79.899 Other long term (current) drug therapy; Z79.82 Long term (current) use of aspirin
CPT/HCPCS: 36415; 74177; 80048; 80162; 82728; 83550; 83605; 83735; 84145; 84238; 84443; 85025; 85027; 85610; 85730; 86140; 86850; 86900; 86901; 87324; 87507; 93005; 93041; 93306; 94760; 96360; 99285; G0378; Q9967

== ENCOUNTER → 2023-12-23 | Outpatient (CLI) | payer MEDICARE, BC ==
[~2023-12-23] MED LIST changes: +AZIT500T5 PO; +CAND8TAB8 PO; +DILT120C77 PO; +DILT120C89; +VITA30004 PO
== END ==
LOC: M EKG 12:41
PROVIDERS: ATTEND Internal Medicine
DX: I48.0 Paroxysmal atrial fibrillation (principal); Z53.9 Procedure and treatment not carried out, unspecified reason

== ENCOUNTER → 2024-01-18 | Outpatient (CLI) | payer MEDICARE, BC ==
[2024-01-18 07:06] LABS: BASO # 0.1 10^3/uL (0.0-0.2); BASO % 0.7 % (0.0-1.0); EOS # 0.2 10^3/uL (0.0-0.5); EOS % 2.1 % (0.0-3.0); HEMATOCRIT 43.2 % (36.0-47.0); HEMOGLOBIN 14.1 g/dl (12.0-15.5); LYMPH # 1.7 10^3/uL (1.5-5.0); LYMPH % 15.1 % (24.0-44.0); MEAN CORPUSCULAR HEMOGLOBIN 31.7 pg (27.0-33.0); MEAN CORPUSCULAR HGB CONC 32.6 g/dl (32.0-36.5); MEAN CORPUSCULAR VOLUME 97.1 fl (80.0-96.0); MONO # 1.2 10^3/uL (0.0-0.8); MONO % 11.2 % (2.0-8.0); NEUTROPHILS # 7.7 10^3/uL (1.5-8.5); NEUTROPHILS % 70.1 % (36.0-66.0); PLATELET COUNT, AUTOMATED 272 10^3/uL (150-450); RED BLOOD COUNT 4.45 10^6/uL (4.00-5.40)
[2024-01-18 07:35] LABS: FERRITIN 37.4 NG/ML (7.3-270.7)
== END ==
LOC: M LAB 06:31
PROVIDERS: ATTEND Internal Medicine Hematology
DX: E61.1 Iron deficiency (principal)

== ENCOUNTER 2024-02-14 14:05 | Outpatient (CLI) | payer MEDICARE, BC ==
[~2024-02-14] VITALS: Ht 154.9 cm; Wt 59.0 kg
[2024-02-14 14:00] VITALS: BP 150/84; O2SAT 95
[~2024-02-14 14:05] MED LIST changes: +ALBUTEROL SULFATE 2.5MG/0.5ML INH NEB SOLN INH PRN; +EPINEPHrine INJ 1 MG/ML 1ML AMP IM PRN; +diphenhydrAMINE 50MG/ML VIAL IV PRN; +methylPREDNISolone 125MG 2ML VIAL IV PRN
[2024-02-14] MEDS: IRON SUCROSE 200 MG in NS 100 ML OVER 1 HR IV ONE (15:06)
[2024-02-14 16:25] VITALS: BP 170/60; O2SAT 96
== END 2024-02-14 16:25 ==
LOC: M INFU 14:05
PROVIDERS: ATTEND Internal Medicine Hematology
DX: D50.9 Iron deficiency anemia, unspecified (principal); Z88.1 Allergy status to other antibiotic agents; Z88.2 Allergy status to sulfonamides; Z88.8 Allergy status to other drugs, medicaments and biological substances
CPT/HCPCS: 96365; J1756

== ENCOUNTER → 2024-04-17 | Outpatient (CLI) | payer MEDICARE, BC ==
[~2024-04-17] MED LIST changes: -ALBUTEROL SULFATE 2.5MG/0.5ML INH NEB SOLN INH PRN; -EPINEPHrine INJ 1 MG/ML 1ML AMP IM PRN; -diphenhydrAMINE 50MG/ML VIAL IV PRN; -methylPREDNISolone 125MG 2ML VIAL IV PRN
[2024-04-17 11:32] LABS: BASO # 0.1 10^3/uL (0.0-0.2); BASO % 0.8 % (0.0-1.0); EOS # 0.2 10^3/uL (0.0-0.5); EOS % 2.2 % (0.0-3.0); HEMATOCRIT 42.5 % (36.0-47.0); HEMOGLOBIN 13.7 g/dl (12.0-15.5); LYMPH # 1.6 10^3/uL (1.5-5.0); LYMPH % 15.2 % (24.0-44.0); MEAN CORPUSCULAR HEMOGLOBIN 30.6 pg (27.0-33.0); MEAN CORPUSCULAR HGB CONC 32.2 g/dl (32.0-36.5); MEAN CORPUSCULAR VOLUME 94.9 fl (80.0-96.0); MONO # 1.2 10^3/uL (0.0-0.8); MONO % 11.6 % (2.0-8.0); NEUTROPHILS # 7.4 10^3/uL (1.5-8.5); NEUTROPHILS % 69.5 % (36.0-66.0); PLATELET COUNT, AUTOMATED 240 10^3/uL (150-450); RED BLOOD COUNT 4.48 10^6/uL (4.00-5.40); WHITE BLOOD COUNT 10.7 10^3/uL (4.0-10.0)
[2024-04-17 12:02] LABS: FERRITIN 16.3 NG/ML (7.3-270.7); PERCENT SATURATION 19.6 % (13.2-45.0)
== END ==
LOC: M LAB 10:47
PROVIDERS: ATTEND Family Medicine
DX: D50.9 Iron deficiency anemia, unspecified (principal)

== ENCOUNTER → 2024-04-23 | Outpatient (CLI) | payer MEDICARE, BC ==
[2024-04-23 06:52] LABS: BASO # 0.1 10^3/uL (0.0-0.2); BASO % 0.7 % (0.0-1.0); EOS # 0.3 10^3/uL (0.0-0.5); EOS % 2.9 % (0.0-3.0); HEMATOCRIT 42.3 % (36.0-47.0); HEMOGLOBIN 13.7 g/dl (12.0-15.5); LYMPH # 1.4 10^3/uL (1.5-5.0); LYMPH % 15.3 % (24.0-44.0); MEAN CORPUSCULAR HGB CONC 32.4 g/dl (32.0-36.5); MEAN CORPUSCULAR VOLUME 92.8 fl (80.0-96.0); MONO # 1.1 10^3/uL (0.0-0.8); MONO % 11.4 % (2.0-8.0); NEUTROPHILS # 6.5 10^3/uL (1.5-8.5); NEUTROPHILS % 69.1 % (36.0-66.0); PLATELET COUNT, AUTOMATED 206 10^3/uL (150-450); RED BLOOD COUNT 4.56 10^6/uL (4.00-5.40); WHITE BLOOD COUNT 9.4 10^3/uL (4.0-10.0)
== END ==
LOC: M LAB 06:12
PROVIDERS: ATTEND Internal Medicine Hematology
DX: E61.1 Iron deficiency (principal)

== ENCOUNTER → 2024-06-23 | Outpatient (CLI) | payer MEDICARE, BC ==
[~2024-06-23] MED LIST changes: +VANC125C13 PO; -VANC125C3 PO
[2024-06-23 09:07] LABS: ALBUMIN 3.8 G/DL (3.2-5.2); ALKALINE PHOSPHATASE 94 U/L (35-104); ALT/SGPT 18 U/L (7.0-40); AST/SGOT 16 U/L (<34); BILIRUBIN,TOTAL 0.7 MG/DL (0.3-1.2); BLOOD UREA NITROGEN 20 MG/DL (9-23); CALCIUM LEVEL 8.9 MG/DL (8.3-10.6); CARBON DIOXIDE LEVEL 29 MMOL/L (20-31); CHLORIDE LEVEL 104 MMOL/L (98-107); CHOLESTEROL LEVEL 118 MG/DL (<200); CHOLESTEROL RISK RATIO 2.84 (<5); CREATININE FOR GFR 0.85 MG/DL (0.55-1.30); GLOMERULAR FILTRATION RATE > 60.0 (>32); GLUCOSE, FASTING 105 MG/DL (74-106); HDL CHOLESTEROL 41.5 MG/DL (>40); LDL CHOLESTEROL 40.5 MG/DL (<100); NON-HDL-C 76.5 MG/DL; POTASSIUM SERUM 4.3 MMOL/L (3.5-5.1); SODIUM LEVEL 142 MMOL/L (136-145); TOTAL PROTEIN 7.1 G/DL (5.7-8.2); TRIGLYCERIDES LEVEL 180 MG/DL (<150)
[2024-06-23 09:10] LABS: THYROID STIMULATING HORMONE 4.489 uIU/ML (0.55-4.78)
== END ==
LOC: M LAB 08:09
PROVIDERS: ATTEND Nurse Practitioner Family
DX: I10 Essential (primary) hypertension (principal)

== ENCOUNTER → 2024-06-26 | Outpatient (CLI) | payer MEDICARE, BC ==
[2024-06-26 14:07] LABS: BASO # 0.1 10^3/uL (0.0-0.2); BASO % 0.8 % (0.0-1.0); EOS # 0.3 10^3/uL (0.0-0.5); EOS % 1.9 % (0.0-3.0); HEMATOCRIT 40.1 % (36.0-47.0); HEMOGLOBIN 12.5 g/dl (12.0-15.5); LYMPH # 2.1 10^3/uL (1.5-5.0); LYMPH % 14.7 % (24.0-44.0); MEAN CORPUSCULAR HEMOGLOBIN 30.3 pg (27.0-33.0); MEAN CORPUSCULAR HGB CONC 31.2 g/dl (32.0-36.5); MEAN CORPUSCULAR VOLUME 97.3 fl (80.0-96.0); MONO # 1.6 10^3/uL (0.0-0.8); MONO % 11.2 % (2.0-8.0); NEUTROPHILS # 10.1 10^3/uL (1.5-8.5); NEUTROPHILS % 70.6 % (36.0-66.0); PLATELET COUNT, AUTOMATED 266 10^3/uL (150-450); RED BLOOD COUNT 4.12 10^6/uL (4.00-5.40); WHITE BLOOD COUNT 14.2 10^3/uL (4.0-10.0)
== END ==
LOC: M PLALAB 11:33
PROVIDERS: ATTEND Internal Medicine Hematology
DX: E61.1 Iron deficiency (principal)

== ENCOUNTER 2024-07-10 12:35 | Outpatient (CLI) | payer MEDICARE, BC ==
[~2024-07-10] VITALS: Ht 154.9 cm; Wt 59.0 kg
[~2024-07-10 12:35] MED LIST changes: +ALBUTEROL SULFATE 2.5MG/0.5ML INH NEB SOLN INH PRN; +EPINEPHrine INJ 1 MG/ML 1ML AMP IM PRN; +diphenhydrAMINE 50MG/ML VIAL IV PRN; +methylPREDNISolone 125MG 2ML VIAL IV PRN
[2024-07-10 12:45] VITALS: BP 127/88; O2SAT 98
[2024-07-10] MEDS: IRON SUCROSE 300 MG in NS 250 ML OVER 90 MIN. IV ONE (13:04)
[2024-07-10 14:39] VITALS: BP 133/90; O2SAT 99
== END 2024-07-10 14:40 ==
LOC: M INFU 12:35
PROVIDERS: ATTEND Internal Medicine Hematology
DX: E61.1 Iron deficiency (principal); Z88.1 Allergy status to other antibiotic agents; Z88.2 Allergy status to sulfonamides; Z88.8 Allergy status to other drugs, medicaments and biological substances
CPT/HCPCS: 96365; 96366; J1756

== ENCOUNTER → 2024-07-20 | Outpatient (CLI) | payer MEDICARE, BC ==
[~2024-07-20] MED LIST changes: -ALBUTEROL SULFATE 2.5MG/0.5ML INH NEB SOLN INH PRN; -EPINEPHrine INJ 1 MG/ML 1ML AMP IM PRN; -diphenhydrAMINE 50MG/ML VIAL IV PRN; -methylPREDNISolone 125MG 2ML VIAL IV PRN
[2024-07-20 08:39] LABS: BASO # 0.1 10^3/uL (0.0-0.2); BASO % 0.5 % (0.0-1.0); EOS # 0.2 10^3/uL (0.0-0.5); EOS % 1.7 % (0.0-3.0); HEMOGLOBIN 9.3 g/dl (12.0-15.5); LYMPH # 1.4 10^3/uL (1.5-5.0); MEAN CORPUSCULAR HEMOGLOBIN 30.2 pg (27.0-33.0); MEAN CORPUSCULAR VOLUME 100.6 fl (80.0-96.0); MONO # 0.9 10^3/uL (0.0-0.8); MONO % 8.3 % (2.0-8.0); NEUTROPHILS # 8.2 10^3/uL (1.5-8.5); NEUTROPHILS % 75.8 % (36.0-66.0); PLATELET COUNT, AUTOMATED 248 10^3/uL (150-450); RED BLOOD COUNT 3.08 10^6/uL (4.00-5.40); WHITE BLOOD COUNT 10.8 10^3/uL (4.0-10.0)
[2024-07-20 09:11] LABS: ALBUMIN 3.4 G/DL (3.2-5.2); ALKALINE PHOSPHATASE 82 U/L (35-104); ALT/SGPT 15 U/L (7.0-40); AST/SGOT 15 U/L (<34); BILIRUBIN,TOTAL 0.5 MG/DL (0.3-1.2); BLOOD UREA NITROGEN 23 MG/DL (9-23); CALCIUM LEVEL 8.7 MG/DL (8.3-10.6); CARBON DIOXIDE LEVEL 27 MMOL/L (20-31); CHLORIDE LEVEL 105 MMOL/L (98-107); CREATININE FOR GFR 0.89 MG/DL (0.55-1.30); GLOMERULAR FILTRATION RATE > 60.0 (>32); GLUCOSE, FASTING 104 MG/DL (74-106); IRON (FE) 20 UG/DL (50-170); PERCENT SATURATION 5.2 % (13.2-45.0); POTASSIUM SERUM 4.4 MMOL/L (3.5-5.1); SODIUM LEVEL 140 MMOL/L (136-145); TOTAL IRON BINDING CAPACITY 386 UG/DL (250-425); TOTAL PROTEIN 6.6 G/DL (5.7-8.2)
[2024-07-20 09:12] LABS: FERRITIN 54.1 NG/ML (7.3-270.7)
== END ==
LOC: M LAB 08:11
PROVIDERS: ATTEND Nurse Practitioner Family
DX: D50.9 Iron deficiency anemia, unspecified (principal)

== ENCOUNTER 2024-07-24 12:45 | Outpatient (CLI) | payer MEDICARE, BC ==
[~2024-07-24] VITALS: Ht 154.9 cm; Wt 58.9 kg
[2024-07-24 12:30] VITALS: BP 151/67; O2SAT 96
[~2024-07-24 12:45] MED LIST changes: +ALBUTEROL SULFATE 2.5MG/0.5ML INH NEB SOLN INH PRN; +EPINEPHrine INJ 1 MG/ML 1ML AMP IM PRN; +diphenhydrAMINE 50MG/ML VIAL IV PRN; +methylPREDNISolone 125MG 2ML VIAL IV PRN
[2024-07-24] MEDS: IRON SUCROSE 300 MG in NS 250 ML OVER 90 MIN. IV ONE (12:59)
[2024-07-24 14:35] VITALS: BP 150/78; O2SAT 96
== END 2024-07-24 14:40 ==
LOC: M INFU 12:45
PROVIDERS: ATTEND Internal Medicine Hematology
DX: E61.1 Iron deficiency (principal); Z88.1 Allergy status to other antibiotic agents; Z88.2 Allergy status to sulfonamides; Z88.8 Allergy status to other drugs, medicaments and biological substances
CPT/HCPCS: 96365; 96366; J1756

== ENCOUNTER → 2024-07-25 | Outpatient (CLI) | payer MEDICARE, BC ==
[~2024-07-25] MED LIST changes: -ALBUTEROL SULFATE 2.5MG/0.5ML INH NEB SOLN INH PRN; -EPINEPHrine INJ 1 MG/ML 1ML AMP IM PRN; -diphenhydrAMINE 50MG/ML VIAL IV PRN; -methylPREDNISolone 125MG 2ML VIAL IV PRN
[2024-07-25 12:13] LABS: BASO # 0.1 10^3/uL (0.0-0.2); BASO % 0.7 % (0.0-1.0); EOS # 0.2 10^3/uL (0.0-0.5); EOS % 1.7 % (0.0-3.0); HEMATOCRIT 32.2 % (36.0-47.0); HEMOGLOBIN 9.6 g/dl (12.0-15.5); LYMPH # 1.6 10^3/uL (1.5-5.0); LYMPH % 13.7 % (24.0-44.0); MEAN CORPUSCULAR HEMOGLOBIN 30.3 pg (27.0-33.0); MEAN CORPUSCULAR HGB CONC 29.8 g/dl (32.0-36.5); MEAN CORPUSCULAR VOLUME 101.6 fl (80.0-96.0); MONO # 1.4 10^3/uL (0.0-0.8); MONO % 11.4 % (2.0-8.0); NEUTROPHILS # 8.5 10^3/uL (1.5-8.5); NEUTROPHILS % 70.8 % (36.0-66.0); PLATELET COUNT, AUTOMATED 269 10^3/uL (150-450); RED BLOOD COUNT 3.17 10^6/uL (4.00-5.40); WHITE BLOOD COUNT 11.9 10^3/uL (4.0-10.0)
[2024-07-25 13:26] LABS: ALBUMIN 3.3 G/DL (3.2-5.2); ALKALINE PHOSPHATASE 100 U/L (35-104); ALT/SGPT 17 U/L (7.0-40); AST/SGOT 14 U/L (<34); BILIRUBIN,TOTAL 0.4 MG/DL (0.3-1.2); BLOOD UREA NITROGEN 22 MG/DL (9-23); CALCIUM LEVEL 8.9 MG/DL (8.3-10.6); CARBON DIOXIDE LEVEL 28 MMOL/L (20-31); CHLORIDE LEVEL 107 MMOL/L (98-107); CREATININE FOR GFR 0.86 MG/DL (0.55-1.30); GLOMERULAR FILTRATION RATE > 60.0 (>32); GLUCOSE, FASTING 92 MG/DL (74-106); IRON (FE) 120 UG/DL (50-170); PERCENT SATURATION 32.6 % (13.2-45.0); POTASSIUM SERUM 4.4 MMOL/L (3.5-5.1); SODIUM LEVEL 143 MMOL/L (136-145); TOTAL IRON BINDING CAPACITY 368 UG/DL (250-425); TOTAL PROTEIN 6.4 G/DL (5.7-8.2)
[2024-07-25 13:28] LABS: FERRITIN 136.6 NG/ML (7.3-270.7)
== END ==
LOC: M LAB 11:16
PROVIDERS: ATTEND Nurse Practitioner Family
DX: D50.9 Iron deficiency anemia, unspecified (principal)

== ENCOUNTER → 2024-07-30 | Outpatient (CLI) | payer MEDICARE, BC ==
[2024-07-30 06:33] LABS: BASO # 0.1 10^3/uL (0.0-0.2); BASO % 0.8 % (0.0-1.0); EOS # 0.3 10^3/uL (0.0-0.5); EOS % 3.1 % (0.0-3.0); HEMATOCRIT 37.9 % (36.0-47.0); HEMOGLOBIN 11.1 g/dl (12.0-15.5); LYMPH # 1.7 10^3/uL (1.5-5.0); LYMPH % 15.4 % (24.0-44.0); MEAN CORPUSCULAR HEMOGLOBIN 30.2 pg (27.0-33.0); MEAN CORPUSCULAR HGB CONC 29.3 g/dl (32.0-36.5); MONO # 1.1 10^3/uL (0.0-0.8); MONO % 9.8 % (2.0-8.0); NEUTROPHILS # 7.7 10^3/uL (1.5-8.5); NEUTROPHILS % 69.9 % (36.0-66.0); PLATELET COUNT, AUTOMATED 278 10^3/uL (150-450); RED BLOOD COUNT 3.68 10^6/uL (4.00-5.40)
[2024-07-30 07:12] LABS: ALBUMIN 3.7 G/DL (3.2-5.2); ALKALINE PHOSPHATASE 96 U/L (35-104); ALT/SGPT 19 U/L (7.0-40); AST/SGOT 19 U/L (<34); BILIRUBIN,TOTAL 0.5 MG/DL (0.3-1.2); BLOOD UREA NITROGEN 19 MG/DL (9-23); CALCIUM LEVEL 8.9 MG/DL (8.3-10.6); CARBON DIOXIDE LEVEL 27 MMOL/L (20-31); CHLORIDE LEVEL 106 MMOL/L (98-107); CREATININE FOR GFR 0.81 MG/DL (0.55-1.30); GLOMERULAR FILTRATION RATE > 60.0 (>32); GLUCOSE, FASTING 102 MG/DL (74-106); IRON (FE) 25 UG/DL (50-170); PERCENT SATURATION 6.5 % (13.2-45.0); POTASSIUM SERUM 4.3 MMOL/L (3.5-5.1); SODIUM LEVEL 140 MMOL/L (136-145); TOTAL IRON BINDING CAPACITY 385 UG/DL (250-425)
[2024-07-30 07:14] LABS: FERRITIN 103.1 NG/ML (7.3-270.7)
== END ==
LOC: M LAB 06:07
PROVIDERS: ATTEND Nurse Practitioner Family
DX: D50.9 Iron deficiency anemia, unspecified (principal)

== ENCOUNTER → 2024-08-06 | Outpatient (CLI) | payer MEDICARE, BC ==
[2024-08-06 07:17] LABS: BASO # 0.1 10^3/uL (0.0-0.2); BASO % 0.6 % (0.0-1.0); EOS # 0.3 10^3/uL (0.0-0.5); EOS % 3.7 % (0.0-3.0); HEMATOCRIT 37.2 % (36.0-47.0); HEMOGLOBIN 11.3 g/dl (12.0-15.5); LYMPH # 1.5 10^3/uL (1.5-5.0); LYMPH % 15.9 % (24.0-44.0); MEAN CORPUSCULAR HEMOGLOBIN 29.9 pg (27.0-33.0); MEAN CORPUSCULAR HGB CONC 30.4 g/dl (32.0-36.5); MEAN CORPUSCULAR VOLUME 98.4 fl (80.0-96.0); MONO # 0.9 10^3/uL (0.0-0.8); MONO % 9.9 % (2.0-8.0); NEUTROPHILS # 6.4 10^3/uL (1.5-8.5); NEUTROPHILS % 69.3 % (36.0-66.0); PLATELET COUNT, AUTOMATED 231 10^3/uL (150-450); RED BLOOD COUNT 3.78 10^6/uL (4.00-5.40); WHITE BLOOD COUNT 9.3 10^3/uL (4.0-10.0)
[2024-08-06 07:43] LABS: ALBUMIN 3.4 G/DL (3.2-5.2); ALKALINE PHOSPHATASE 91 U/L (35-104); ALT/SGPT 21 U/L (7.0-40); AST/SGOT 14 U/L (<34); BILIRUBIN,TOTAL 0.4 MG/DL (0.3-1.2); BLOOD UREA NITROGEN 23 MG/DL (9-23); CALCIUM LEVEL 8.9 MG/DL (8.3-10.6); CARBON DIOXIDE LEVEL 27 MMOL/L (20-31); CHLORIDE LEVEL 105 MMOL/L (98-107); CREATININE FOR GFR 0.87 MG/DL (0.55-1.30); GLOMERULAR FILTRATION RATE > 60.0 (>32); GLUCOSE, FASTING 104 MG/DL (74-106); IRON (FE) 26 UG/DL (50-170); POTASSIUM SERUM 4.2 MMOL/L (3.5-5.1); SODIUM LEVEL 139 MMOL/L (136-145); TOTAL IRON BINDING CAPACITY 374 UG/DL (250-425); TOTAL PROTEIN 6.6 G/DL (5.7-8.2)
[2024-08-06 07:44] LABS: FREE T4 1.32 NG/DL (0.89-1.76); THYROID STIMULATING HORMONE 5.309 uIU/ML (0.55-4.78)
== END ==
LOC: M LAB 06:15
PROVIDERS: ATTEND Nurse Practitioner Family
DX: D50.9 Iron deficiency anemia, unspecified (principal); E03.9 Hypothyroidism, unspecified

== ENCOUNTER → 2024-08-20 | Outpatient (CLI) | payer MEDICARE, BC ==
[2024-08-20 07:11] LABS: BASO # 0.1 10^3/uL (0.0-0.2); BASO % 0.9 % (0.0-1.0); EOS # 0.3 10^3/uL (0.0-0.5); HEMATOCRIT 39.1 % (36.0-47.0); LYMPH # 1.9 10^3/uL (1.5-5.0); LYMPH % 16.8 % (24.0-44.0); MEAN CORPUSCULAR HEMOGLOBIN 29.6 pg (27.0-33.0); MEAN CORPUSCULAR HGB CONC 30.7 g/dl (32.0-36.5); MEAN CORPUSCULAR VOLUME 96.5 fl (80.0-96.0); MONO # 1.1 10^3/uL (0.0-0.8); NEUTROPHILS # 7.8 10^3/uL (1.5-8.5); NEUTROPHILS % 68.2 % (36.0-66.0); PLATELET COUNT, AUTOMATED 266 10^3/uL (150-450); RED BLOOD COUNT 4.05 10^6/uL (4.00-5.40); WHITE BLOOD COUNT 11.4 10^3/uL (4.0-10.0)
== END ==
LOC: M LAB 06:06
PROVIDERS: ATTEND Nurse Practitioner Family
DX: R53.1 Weakness (principal)

== ENCOUNTER 2024-08-29 22:04 | Emergency (ER) | payer MEDICARE, BC ==
[~2024-08-29] VITALS: Ht 154.9 cm; Wt 61.8 kg
[2024-08-29 22:20] LABS: BASO # 0.1 10^3/uL (0.0-0.2); BASO % 0.4 % (0.0-1.0); EOS # 0.3 10^3/uL (0.0-0.5); EOS % 1.3 % (0.0-3.0); HEMATOCRIT 36.8 % (36.0-47.0); HEMOGLOBIN 11.6 g/dl (12.0-15.5); LYMPH # 2.2 10^3/uL (1.5-5.0); LYMPH % 10.2 % (24.0-44.0); MEAN CORPUSCULAR HEMOGLOBIN 30.5 pg (27.0-33.0); MEAN CORPUSCULAR HGB CONC 31.5 g/dl (32.0-36.5); MEAN CORPUSCULAR VOLUME 96.8 fl (80.0-96.0); MONO % 9.1 % (2.0-8.0); NEUTROPHILS # 16.8 10^3/uL (1.5-8.5); NEUTROPHILS % 77.1 % (36.0-66.0); PLATELET COUNT, AUTOMATED 268 10^3/uL (150-450); WHITE BLOOD COUNT 21.8 10^3/uL (4.0-10.0)
[2024-08-29] MEDS: METOPROLOL 5 MG/5 ML VIAL IV SCH (22:38)
[2024-08-29 23:00] LABS: DIGOXIN LEVEL 0.8 NG/ML (0.8-2.0)
[2024-08-29 23:02] LABS: ALBUMIN 3.1 G/DL (3.2-5.2); ALKALINE PHOSPHATASE 95 U/L (35-104); ALT/SGPT 22 U/L (7.0-40); AST/SGOT 15 U/L (<34); BILIRUBIN,DIRECT < 0.1 MG/DL (<0.4); BILIRUBIN,TOTAL 0.3 MG/DL (0.3-1.2); BLOOD UREA NITROGEN 30 MG/DL (9-23); CALCIUM LEVEL 7.7 MG/DL (8.3-10.6); CARBON DIOXIDE LEVEL 26 MMOL/L (20-31); CHLORIDE LEVEL 104 MMOL/L (98-107); CK-MB VALUE MASS 3.3 NG/ML (<3.6); CPK CREATINE PHOSPHOKINASE 36 U/L (34-145); CREATININE FOR GFR 1.14 MG/DL (0.55-1.30); GLOMERULAR FILTRATION RATE 47.2 (>32); GLUCOSE, FASTING 116 MG/DL (74-106); MAGNESIUM LEVEL 2.2 MG/DL (1.8-2.4); MB/CK RELATIVE INDEX 9.16 (< OR =4); POTASSIUM SERUM 4.2 MMOL/L (3.5-5.1); SODIUM LEVEL 138 MMOL/L (136-145); THYROID STIMULATING HORMONE 6.969 uIU/ML (0.55-4.78); TOTAL PROTEIN 5.8 G/DL (5.7-8.2)
[2024-08-29] MEDS: NS (Normal Saline) 0.9% 1,000 ML IV ONE (23:15)
[2024-08-29 23:53] LABS: CK-MB VALUE MASS 3.9 NG/ML (<3.6)
[2024-08-30 00:15] LABS: MB/CK RELATIVE INDEX 15.6 (< OR =4)
[2024-08-30 00:28] VITALS: BP 124/57
[2024-08-30] MEDS: METOPROLOL TART 25 MG TABLET PO ONE (00:28)
[2024-08-30 04:50] LABS: CK-MB VALUE MASS 7.3 NG/ML (<3.6)
[2024-08-30 04:58] LABS: MB/CK RELATIVE INDEX 14.31 (< OR =4)
[2024-08-30] MEDS ORDERED: HEPARIN SOD (PORCINE) 5000UNITS/ML 1ML VIAL/SYRINGE IV PRN (05:05)
[2024-08-30] MEDS: HEPARIN DRIP 25,000 UNITS in IV 1 EA IV SCH (06:14)
[2024-08-30 06:30] LABS: HEMATOCRIT 32.2 % (36.0-47.0); HEMOGLOBIN 9.9 g/dl (12.0-15.5); MEAN CORPUSCULAR HEMOGLOBIN 30.3 pg (27.0-33.0); MEAN CORPUSCULAR HGB CONC 30.7 g/dl (32.0-36.5); MEAN CORPUSCULAR VOLUME 98.5 fl (80.0-96.0); PLATELET COUNT, AUTOMATED 202 10^3/uL (150-450); RED BLOOD COUNT 3.27 10^6/uL (4.00-5.40); WHITE BLOOD COUNT 15.2 10^3/uL (4.0-10.0)
[2024-08-30] MEDS ORDERED: BRIMONIDINE 0.15% OPHTH SOLN 5 ML OU STA (06:40)
[2024-08-30] MEDS ORDERED: LEVOTHYROXINE 88MCG TABLET (0.088 MG) PO STA (06:40)
[2024-08-30] MEDS ORDERED: FLECAINIDE 50MG TABLET PO STA (06:40)
[2024-08-30] MEDS ORDERED: dilTIAZem 120MG **CD** CAPSULE PO ONE (06:40)
[2024-08-30] MEDS ORDERED: DIGOXIN 0.125 MG TAB PO ONE (06:40)
[2024-08-30] MEDS ORDERED: BRIMONIDINE 0.1% OPHTH SOLN 5ML OU STA (06:59)
[2024-08-30 07:21] VITALS: BP 144/63; TEMP 97.6; O2SAT 97
== END 2024-08-30 07:25 | disposition short-term general hospital (02) ==
LOC: M ED 22:04
DX: I48.91 Unspecified atrial fibrillation (principal); R79.89 Other specified abnormal findings of blood chemistry; I44.7 Left bundle-branch block, unspecified; E78.5 Hyperlipidemia, unspecified; E55.9 Vitamin D deficiency, unspecified; I10 Essential (primary) hypertension; E03.9 Hypothyroidism, unspecified; Z88.1 Allergy status to other antibiotic agents; Z88.2 Allergy status to sulfonamides; Z88.8 Allergy status to other drugs, medicaments and biological substances

== ENCOUNTER → 2024-09-04 | Outpatient (CLI) | payer MEDICARE, BC ==
[~2024-09-04] MED LIST changes: +BRIM5DRO25 OU; +DILT240C83 PO; +ELIQ2.5T PO; +FLEC25TA PO; +LOSA100T46 PO
[2024-09-04 18:08] LABS: BASO # 0.1 10^3/uL (0.0-0.2); BASO % 0.4 % (0.0-1.0); EOS # 0.3 10^3/uL (0.0-0.5); EOS % 1.7 % (0.0-3.0); HEMATOCRIT 29.3 % (36.0-47.0); HEMOGLOBIN 8.9 g/dl (12.0-15.5); LYMPH # 2.7 10^3/uL (1.5-5.0); LYMPH % 13.4 % (24.0-44.0); MEAN CORPUSCULAR HEMOGLOBIN 29.7 pg (27.0-33.0); MEAN CORPUSCULAR HGB CONC 30.4 g/dl (32.0-36.5); MEAN CORPUSCULAR VOLUME 97.7 fl (80.0-96.0); MONO # 2.1 10^3/uL (0.0-0.8); MONO % 10.4 % (2.0-8.0); NEUTROPHILS # 14.6 10^3/uL (1.5-8.5); NEUTROPHILS % 72.4 % (36.0-66.0); PLATELET COUNT, AUTOMATED 287 10^3/uL (150-450); WHITE BLOOD COUNT 20.2 10^3/uL (4.0-10.0)
[2024-09-04 18:39] LABS: PERCENT SATURATION 17.6 % (13.2-45.0)
[2024-09-04 18:40] LABS: FERRITIN 22.1 NG/ML (7.3-270.7)
[2024-09-04 18:58] LABS: ALBUMIN 2.9 G/DL (3.2-5.2); BILIRUBIN,TOTAL 0.3 MG/DL (0.3-1.2); CALCIUM LEVEL 9.4 MG/DL (8.3-10.6); CREATININE FOR GFR 1.52 MG/DL (0.55-1.30); GLOMERULAR FILTRATION RATE 33.4 (>32); POTASSIUM SERUM 5.3 MMOL/L (3.5-5.1); TOTAL PROTEIN 5.7 G/DL (5.7-8.2)
== END ==
LOC: M LAB 17:19
PROVIDERS: ATTEND Nurse Practitioner Family
DX: D50.9 Iron deficiency anemia, unspecified (principal)

== ENCOUNTER 2024-09-05 00:25 | Inpatient (IN) | payer MEDICARE, BC ==
[2024-09-05] VITALS (14 sets, daily range): BP systolic 92–174; BP diastolic 52–77; TEMP 96.5–98.6; O2SAT 90–98
[~2024-09-05] VITALS: Ht 154.9 cm; Wt 49.2 kg
[~2024-09-05 00:25] MED LIST changes: -BRIM5DRO25 OU; -DILT240C83 PO; -ELIQ2.5T PO; -FLEC25TA PO; -LOSA100T46 PO
[2024-09-05 01:22] LABS: BASO # 0.1 10^3/uL (0.0-0.2); BASO % 0.4 % (0.0-1.0); EOS # 0.3 10^3/uL (0.0-0.5); EOS % 1.4 % (0.0-3.0); HEMATOCRIT 25.5 % (36.0-47.0); HEMOGLOBIN 7.8 g/dl (12.0-15.5); LYMPH # 2.5 10^3/uL (1.5-5.0); LYMPH % 12.6 % (24.0-44.0); MEAN CORPUSCULAR HEMOGLOBIN 29.8 pg (27.0-33.0); MEAN CORPUSCULAR HGB CONC 30.6 g/dl (32.0-36.5); MEAN CORPUSCULAR VOLUME 97.3 fl (80.0-96.0); MONO # 1.6 10^3/uL (0.0-0.8); MONO % 8.2 % (2.0-8.0); NEUTROPHILS % 75.8 % (36.0-66.0); PLATELET COUNT, AUTOMATED 258 10^3/uL (150-450); RED BLOOD COUNT 2.62 10^6/uL (4.00-5.40); WHITE BLOOD COUNT 19.7 10^3/uL (4.0-10.0)
[2024-09-05 01:33] LABS: CK-MB VALUE MASS 3.7 NG/ML (<3.6)
[2024-09-05 01:35] LABS: ALBUMIN 2.8 G/DL (3.2-5.2); ALKALINE PHOSPHATASE 72 U/L (35-104); ALT/SGPT 17 U/L (7.0-40); AST/SGOT 14 U/L (<34); BILIRUBIN,DIRECT < 0.1 MG/DL (<0.4); BILIRUBIN,TOTAL 0.3 MG/DL (0.3-1.2); BLOOD UREA NITROGEN 71 MG/DL (9-23); CALCIUM LEVEL 8.7 MG/DL (8.3-10.6); CARBON DIOXIDE LEVEL 24 MMOL/L (20-31); CHLORIDE LEVEL 108 MMOL/L (98-107); CPK CREATINE PHOSPHOKINASE 38 U/L (34-145); CREATININE FOR GFR 1.35 MG/DL (0.55-1.30); GLOMERULAR FILTRATION RATE 38.5 (>32); GLUCOSE, FASTING 112 MG/DL (74-106); MB/CK RELATIVE INDEX 9.73 (< OR =4); POTASSIUM SERUM 4.6 MMOL/L (3.5-5.1); SODIUM LEVEL 140 MMOL/L (136-145); TOTAL PROTEIN 5.5 G/DL (5.7-8.2)
[2024-09-05 02:56] LABS: CK-MB VALUE MASS 3.8 NG/ML (<3.6)
[2024-09-05 02:59] LABS: MB/CK RELATIVE INDEX 9.74 (< OR =4)
[2024-09-05 04:04] LABS: HEMATOCRIT 23.5 % (36.0-47.0); HEMOGLOBIN 7.3 g/dl (12.0-15.5)
[2024-09-05] MEDS ORDERED: ISOVUE-370 76% 100ML VIAL As Ordered ONE (04:32)
[2024-09-05] MEDS: LEVOTHYROXINE 88MCG TABLET (0.088 MG) PO SCH (06:00)
[2024-09-05] MEDS: DOCUSATE SODIUM 100MG CAPSULE PO SCH (09:00)
[2024-09-05] MEDS ORDERED: FLECAINIDE 50MG TABLET PO SCH (09:00)
[2024-09-05] MEDS ORDERED: LEVOTHYROXINE 88MCG TABLET (0.088 MG) PO STA (09:02)
[2024-09-05] MEDS ORDERED: dilTIAZem 30 MG TAB PO ONE (09:05)
[2024-09-05] MEDS ORDERED: BRIM5DRO25 OU (09:24)
[2024-09-05] MEDS ORDERED: DILT240C83 PO (09:27)
[2024-09-05] MEDS ORDERED: LOSA100T46 PO (09:32)
[2024-09-05] MEDS ORDERED: ELIQ2.5T PO (09:32)
[2024-09-05] MEDS ORDERED: FLEC25TA PO (09:34)
[2024-09-05] MEDS ORDERED: HOME MED LIST COMPLETE! XX SCH (09:35)
[2024-09-05] MEDS ORDERED: ACETAMINOPHEN 325 MG TAB PO PRN (09:40)
[2024-09-05] MEDS ORDERED: MOM 30ML SUSPENSION UDC PO PRN (09:40)
[2024-09-05] MEDS: PANTOPRAZOLE 40MG VIAL IV ONE (10:00)
[2024-09-05] MEDS: VITAMIN D 1,000 INTERNATIONAL UNITS TABLET PO SCH (12:00)
[2024-09-05] MEDS: LOSARTAN 50MG TABLET PO ONE (12:01)
[2024-09-05] MEDS: FLECAINIDE 50MG TABLET PO SCH (12:01)
[2024-09-05] MEDS: BRIMONIDINE 0.1% OPHTH SOLN 5ML OU STA (12:38)
[2024-09-05 12:39] LABS: HEMATOCRIT 30.5 % (36.0-47.0); MEAN CORPUSCULAR HEMOGLOBIN 31.1 pg (27.0-33.0); MEAN CORPUSCULAR HGB CONC 32.5 g/dl (32.0-36.5); MEAN CORPUSCULAR VOLUME 95.9 fl (80.0-96.0); PLATELET COUNT, AUTOMATED 201 10^3/uL (150-450); RED BLOOD COUNT 3.18 10^6/uL (4.00-5.40); WHITE BLOOD COUNT 17.3 10^3/uL (4.0-10.0)
[2024-09-05] MEDS: LR 1,000 ML IV SCH (12:39)
[2024-09-05 12:42] LABS: HEMOGLOBIN 9.9 g/dl (12.0-15.5)
[2024-09-05] MEDS: FERRIC CARBOXYMALTOSE INJ 750 MG, VIAL MATE ADAPTER 1 EACH in NS 100 ML IV ONE (14:41)
[2024-09-05] MEDS: BRIMONIDINE 0.1% OPHTH SOLN 5ML OU SCH (20:29)
[2024-09-05] MEDS: PANTOPRAZOLE 40MG VIAL IV SCH (20:29)
[2024-09-05] MEDS: LATANOPROST 0.005% OPHTH SOLN 2.5 ML OU SCH (20:41)
[2024-09-05 21:15] LABS: HEMATOCRIT 27.1 % (36.0-47.0); HEMOGLOBIN 8.8 g/dl (12.0-15.5); MEAN CORPUSCULAR HEMOGLOBIN 30.9 pg (27.0-33.0); MEAN CORPUSCULAR HGB CONC 32.5 g/dl (32.0-36.5); MEAN CORPUSCULAR VOLUME 95.1 fl (80.0-96.0); PLATELET COUNT, AUTOMATED 187 10^3/uL (150-450); RED BLOOD COUNT 2.85 10^6/uL (4.00-5.40); WHITE BLOOD COUNT 14.4 10^3/uL (4.0-10.0)
[2024-09-06 03:17] VITALS: BP 164/71; TEMP 97.7; O2SAT 90
[2024-09-06 04:56] LABS: HEMATOCRIT 27.5 % (36.0-47.0); HEMOGLOBIN 8.6 g/dl (12.0-15.5); MEAN CORPUSCULAR HEMOGLOBIN 29.9 pg (27.0-33.0); MEAN CORPUSCULAR HGB CONC 31.3 g/dl (32.0-36.5); MEAN CORPUSCULAR VOLUME 95.5 fl (80.0-96.0); PLATELET COUNT, AUTOMATED 175 10^3/uL (150-450); RED BLOOD COUNT 2.88 10^6/uL (4.00-5.40); WHITE BLOOD COUNT 11.9 10^3/uL (4.0-10.0)
[2024-09-06 05:17] LABS: CALCIUM LEVEL 8.2 MG/DL (8.3-10.6); CREATININE FOR GFR 1.16 MG/DL (0.55-1.30); GLOMERULAR FILTRATION RATE 46.2 (>32); POTASSIUM SERUM 4.5 MMOL/L (3.5-5.1)
[2024-09-06 07:56] VITALS: BP 156/69; TEMP 97.1; O2SAT 96
[2024-09-06] MEDS ORDERED: VITAMIN D 1,000 INTERNATIONAL UNITS TABLET PO SCH (09:00)
[2024-09-06] MEDS: dilTIAZem 30 MG TAB PO SCH (09:20)
[2024-09-06 11:32] VITALS: BP 143/67; TEMP 97.2; O2SAT 94
[2024-09-06 14:36] LABS: HEMATOCRIT 28.4 % (36.0-47.0); HEMOGLOBIN 8.9 g/dl (12.0-15.5); MEAN CORPUSCULAR HEMOGLOBIN 30.4 pg (27.0-33.0); MEAN CORPUSCULAR HGB CONC 31.3 g/dl (32.0-36.5); MEAN CORPUSCULAR VOLUME 96.9 fl (80.0-96.0); PLATELET COUNT, AUTOMATED 188 10^3/uL (150-450); RED BLOOD COUNT 2.93 10^6/uL (4.00-5.40); WHITE BLOOD COUNT 12.7 10^3/uL (4.0-10.0)
[2024-09-06 16:13] VITALS: BP 152/65; TEMP 97.3; O2SAT 92
[2024-09-06] MEDS: SYNTHROID 88 MCG PO SCH (17:28)
[2024-09-06] MEDS: BISACODYL 5MG TAB PO ONE (17:30)
[2024-09-06] MEDS: GOLYTELY SOLN 4000 ML BTL PO ONE (17:32)
[2024-09-06 19:45] VITALS: BP 123/56; TEMP 97.3; O2SAT 92
[2024-09-06 22:11] LABS: HEMATOCRIT 27.4 % (36.0-47.0); HEMOGLOBIN 8.9 g/dl (12.0-15.5); MEAN CORPUSCULAR HEMOGLOBIN 31.3 pg (27.0-33.0); MEAN CORPUSCULAR HGB CONC 32.5 g/dl (32.0-36.5); MEAN CORPUSCULAR VOLUME 96.5 fl (80.0-96.0); PLATELET COUNT, AUTOMATED 200 10^3/uL (150-450); RED BLOOD COUNT 2.84 10^6/uL (4.00-5.40); WHITE BLOOD COUNT 14.1 10^3/uL (4.0-10.0)
[2024-09-06 23:47] VITALS: BP 144/65; TEMP 98.7; O2SAT 94
[2024-09-07 03:44] VITALS: BP 150/63; TEMP 97.4; O2SAT 94
[2024-09-07 04:02] LABS: HEMATOCRIT 25.2 % (36.0-47.0); HEMOGLOBIN 8.1 g/dl (12.0-15.5); MEAN CORPUSCULAR HGB CONC 32.1 g/dl (32.0-36.5); MEAN CORPUSCULAR VOLUME 96.6 fl (80.0-96.0); PLATELET COUNT, AUTOMATED 175 10^3/uL (150-450); RED BLOOD COUNT 2.61 10^6/uL (4.00-5.40); WHITE BLOOD COUNT 12.1 10^3/uL (4.0-10.0)
[2024-09-07 04:29] LABS: CALCIUM LEVEL 8.1 MG/DL (8.3-10.6); CREATININE FOR GFR 1.02 MG/DL (0.55-1.30); GLOMERULAR FILTRATION RATE 53.9 (>32)
[2024-09-07] MEDS: MAGNESIUM CITRATE 300ML BTL PO ONE (06:15)
[2024-09-07] MEDS ORDERED: LIDOCAINE 2% 100MG/5ML SDV (FOR ANES.) As Ordered ONE (06:52)
[2024-09-07] MEDS ORDERED: propofoL 200 MG/20 ML VIAL As Ordered ONE (06:52)
[2024-09-07 07:47] VITALS: BP 168/71; TEMP 97.6; O2SAT 96
[2024-09-07 10:35] VITALS: BP 168/72
[2024-09-07 11:45] VITALS: BP 136/61; TEMP 97.9; O2SAT 96
[2024-09-07 15:35] VITALS: BP 157/70; TEMP 97; O2SAT 95
[2024-09-07] MEDS ORDERED: PANT40TA29 PO (15:37)
[2024-09-07 16:32] LABS: HEMATOCRIT 29.9 % (36.0-47.0); HEMOGLOBIN 9.3 g/dl (12.0-15.5); MEAN CORPUSCULAR HEMOGLOBIN 30.5 pg (27.0-33.0); MEAN CORPUSCULAR HGB CONC 31.1 g/dl (32.0-36.5); PLATELET COUNT, AUTOMATED 221 10^3/uL (150-450); RED BLOOD COUNT 3.05 10^6/uL (4.00-5.40); WHITE BLOOD COUNT 13.5 10^3/uL (4.0-10.0)
[2024-09-07 16:40] VITALS: BP 160/70; TEMP 97.3; O2SAT 92
== END 2024-09-07 17:25 | disposition home or self-care (01) | DRG 378 ==
LOC: EDBD 00:25 → M ED 00:25 → M ED INP 09:39 → M PCU 11:18
PROVIDERS: ADMIT Student in an Organized Health Care Education/Training Program; ATTEND Student in an Organized Health Care Education/Training Program
PROC: 30233N1 Transfusion of Nonautologous Red Blood Cells into Peripheral Vein, Percutaneous Approach (ICD-10-PCS; 2024-09-05)
PROC: 0W3P8ZZ Control Bleeding in Gastrointestinal Tract, Via Natural or Artificial Opening Endoscopic (ICD-10-PCS; principal; 2024-09-07 14:30)
DX: K25.4 Chronic or unspecified gastric ulcer with hemorrhage (principal); I48.19 Other persistent atrial fibrillation; I50.32 Chronic diastolic (congestive) heart failure; D62 Acute posthemorrhagic anemia; N17.9 Acute kidney failure, unspecified; I11.0 Hypertensive heart disease with heart failure; H40.9 Unspecified glaucoma; D50.9 Iron deficiency anemia, unspecified; K57.30 Diverticulosis of large intestine without perforation or abscess without bleeding; K64.8 Other hemorrhoids; E55.9 Vitamin D deficiency, unspecified; E03.9 Hypothyroidism, unspecified; E78.5 Hyperlipidemia, unspecified; K55.20 Angiodysplasia of colon without hemorrhage; K31.819 Angiodysplasia of stomach and duodenum without bleeding; D72.829 Elevated white blood cell count, unspecified; K64.4 Residual hemorrhoidal skin tags; F17.200 Nicotine dependence, unspecified, uncomplicated; Z79.01 Long term (current) use of anticoagulants; Z79.890 Hormone replacement therapy; Z79.899 Other long term (current) drug therapy; Z88.1 Allergy status to other antibiotic agents; Z88.8 Allergy status to other drugs, medicaments and biological substances; Z88.2 Allergy status to sulfonamides

== ENCOUNTER → 2025-03-28 | Outpatient (CLI) | payer MEDICARE, BC ==
[~2025-03-28] MED LIST changes: +BRIM5DRO25 OU; +BUSP1TAB; +DILT240C83 PO; +ELIQ2.5T; +ELIQ2.5T PO; +FLEC25TA PO; +LOSA100T46 PO; +PANT40TA29 PO; +SODI2OPD OS
[2025-03-28 12:57] LABS: BASO # 0.1 10^3/uL (0.0-0.2); BASO % 0.7 % (0.0-1.0); EOS # 0.2 10^3/uL (0.0-0.5); EOS % 2.1 % (0.0-3.0); LYMPH # 1.3 10^3/uL (1.5-5.0); LYMPH % 17.9 % (24.0-44.0); MONO # 0.8 10^3/uL (0.0-0.8); MONO % 11.4 % (2.0-8.0); NEUTROPHILS # 4.9 10^3/uL (1.5-8.5); NEUTROPHILS % 67.5 % (36.0-66.0); PLATELET COUNT, AUTOMATED 275 10^3/uL (150-450)
[2025-03-28 13:27] LABS: ALT/SGPT 17.0 U/L (7.0-40); AST/SGOT 20.0 U/L (<34); CALCIUM LEVEL 8.6 MG/DL (8.3-10.6); CARBON DIOXIDE LEVEL 29.0 MMOL/L (20-31); CHLORIDE LEVEL 103.0 MMOL/L (98-107); CREATININE FOR GFR 1.31 MG/DL (0.55-1.30); GLOMERULAR FILTRATION RATE 39.9 (>32); IRON (FE) 132.0 UG/DL (50-170); PERCENT SATURATION 37.1 % (13.2-45.0); POTASSIUM SERUM 4.8 MMOL/L (3.5-5.1); SODIUM LEVEL 140.0 MMOL/L (136-145)
== END ==
LOC: M LAB 12:03
PROVIDERS: ATTEND Nurse Practitioner Family
DX: D50.9 Iron deficiency anemia, unspecified (principal)

== ENCOUNTER → 2025-04-10 | Outpatient (REF) | payer MEDICARE, BC ==
[~2025-04-10] MED LIST changes: -BUSP1TAB; -ELIQ2.5T; +FIDA200TA PO; +PANT-23 PO; +PRES10CA2 PO; -SODI2OPD OS
== END ==
LOC: M LAB REF 12:14
PROVIDERS: ATTEND Student in an Organized Health Care Education/Training Program
DX: R19.7 Diarrhea, unspecified (principal); A04.72 Enterocolitis due to Clostridium difficile, not specified as recurrent

== ENCOUNTER 2025-04-15 06:30 | Observation (INO) | payer MEDICARE, BC ==
[~2025-04-15] VITALS: Ht 152.4 cm; Wt 55.0 kg
[~2025-04-15 06:30] MED LIST changes: -FIDA200TA PO; +LEVOTHYROXINE 88 MCG TABLET (0.088 MG) PO SCH; -PANT-23 PO; -PRES10CA2 PO
[2025-04-15] MEDS ORDERED: ADENOSINE 6 MG/2 ML INJECTION As Ordered ONE (06:51)
[2025-04-15] MEDS: ADENOSINE 6 MG/2 ML INJECTION IV STA ×2 (06:59)
[2025-04-15] MEDS: dilTIAZem 25 MG/5 ML VIAL IV STA (06:59)
[2025-04-15 07:04] LABS: BASO # 0.1 10^3/uL (0.0-0.2); BASO % 0.5 % (0.0-1.0); EOS # 0.1 10^3/uL (0.0-0.5); EOS % 0.8 % (0.0-3.0); LYMPH # 1.3 10^3/uL (1.5-5.0); LYMPH % 9.7 % (24.0-44.0); MONO # 1.3 10^3/uL (0.0-0.8); MONO % 10.3 % (2.0-8.0); NEUTROPHILS # 10.2 10^3/uL (1.5-8.5); NEUTROPHILS % 78.3 % (36.0-66.0); PLATELET COUNT, AUTOMATED 227 10^3/uL (150-450)
[2025-04-15] MEDS ORDERED: MIDAZOLAM INJ 2 MG/2 ML VIAL As Ordered ONE (07:10)
[2025-04-15 07:26] LABS: INR 1.28
[2025-04-15 07:29] LABS: CALCIUM LEVEL 8.8 MG/DL (8.3-10.6); CARBON DIOXIDE LEVEL 24.0 MMOL/L (20-31); CHLORIDE LEVEL 104.0 MMOL/L (98-107); CREATININE FOR GFR 1.55 MG/DL (0.55-1.30); GLOMERULAR FILTRATION RATE 32.6 (>32); MAGNESIUM LEVEL 1.9 MG/DL (1.8-2.4); POTASSIUM SERUM 5.1 MMOL/L (3.5-5.1); SODIUM LEVEL 138.0 MMOL/L (136-145)
[2025-04-15] MEDS: MIDAZOLAM INJ 2 MG/2 ML VIAL IV STA (07:45)
[2025-04-15] MEDS: NS (Normal Saline) 0.9% 1,000 ML IV SCH ×3 (08:05→10:52)
[2025-04-15 08:53] LABS: ALT/SGPT 20.0 U/L (7.0-40); AST/SGOT 38.0 U/L (<34)
[2025-04-15] MEDS: NS (Normal Saline) 0.9% 1,000 ML IV ONE ×2 (10:23→10:24)
[2025-04-15] MEDS ORDERED: PANT-23 PO (11:24)
[2025-04-15] MEDS ORDERED: ATOR40TA75 PO (11:24)
[2025-04-15] MEDS ORDERED: PRES10CA2 PO (11:24)
[2025-04-15] MEDS ORDERED: HOME MED LIST COMPLETE! XX SCH (11:25)
[2025-04-15] MEDS ORDERED: PILL CUTTER 1 EACH XX PRN (12:55)
[2025-04-15 12:56] LABS: C REACTIVE PROTEIN QUANTITATIV 5.02 MG/DL (<1.0)
[2025-04-15] MEDS: PANTOPRAZOLE 40MG TAB PO SCH (13:43)
[2025-04-15] MEDS: ATORVASTATIN 20 MG TAB PO SCH (13:43)
[2025-04-15] MEDS: busPIRone 5 MG TAB PO SCH (13:45)
[2025-04-15] MEDS: VANCOMYCIN 125MG CAPSULE PO SCH (13:47)
[2025-04-15] MEDS: dilTIAZem 120 MG **CD** CAPSULE PO SCH (19:19)
[2025-04-15] MEDS: APIXABAN 2.5 MG TAB PO SCH (21:47)
[2025-04-15] MEDS: BRIMONIDINE 0.1% OPHTH SOLN 5 ML OU SCH (21:47)
[2025-04-15] MEDS: LATANOPROST 0.005% OPHTH SOLN 2.5 ML OU SCH (21:47)
[2025-04-15] MEDS: FIDAXOMICIN 200 MG TAB PO SCH (21:47)
[2025-04-15] MEDS: FLECAINIDE 50 MG TABLET PO SCH (21:48)
[2025-04-16] MEDS: SYNTHROID 88 MCG PO SCH (06:05)
[2025-04-16] MEDS: ACETAMINOPHEN 325 MG TAB PO PRN (10:42)
[2025-04-16] MEDS: **hydrALAZINE** 10 MG TAB PO ONE (10:42)
[2025-04-16 11:15] LABS: PLATELET COUNT, AUTOMATED 173 10^3/uL (150-450)
[2025-04-16 11:35] LABS: ALT/SGPT 18.0 U/L (7.0-40); AST/SGOT 43.0 U/L (<34); CALCIUM LEVEL 7.5 MG/DL (8.3-10.6); CARBON DIOXIDE LEVEL 21.0 MMOL/L (20-31); CHLORIDE LEVEL 109.0 MMOL/L (98-107); CREATININE FOR GFR 1.07 MG/DL (0.55-1.30); GLOMERULAR FILTRATION RATE 50.9 (>32); POTASSIUM SERUM 3.5 MMOL/L (3.5-5.1); SODIUM LEVEL 140.0 MMOL/L (136-145)
[2025-04-16] MEDS ORDERED: FIDA200TA PO (13:55)
[2025-04-16 14:00] VITALS: BP 166/72
[2025-04-16 14:03] VITALS: BP 166/72
[2025-04-16] MEDS: **hydrALAZINE HCL** 25 MG TAB PO ONE (14:03)
[2025-04-16 14:06] VITALS: TEMP 98.7; O2SAT 94
== END 2025-04-16 14:33 | disposition home or self-care (01) ==
LOC: EDBD 06:30 → M ED 06:30 → M ED INP 06:31
PROVIDERS: ADMIT Internal Medicine; ATTEND Internal Medicine
DX: A04.72 Enterocolitis due to Clostridium difficile, not specified as recurrent (principal); I48.91 Unspecified atrial fibrillation; H40.9 Unspecified glaucoma; K21.9 Gastro-esophageal reflux disease without esophagitis; E03.9 Hypothyroidism, unspecified; F39 Unspecified mood [affective] disorder; E78.5 Hyperlipidemia, unspecified; F17.200 Nicotine dependence, unspecified, uncomplicated; I25.2 Old myocardial infarction; E86.0 Dehydration; R03.0 Elevated blood-pressure reading, without diagnosis of hypertension; Z79.01 Long term (current) use of anticoagulants; Z79.890 Hormone replacement therapy; Z79.899 Other long term (current) drug therapy; Z88.0 Allergy status to penicillin; Z88.1 Allergy status to other antibiotic agents; Z88.2 Allergy status to sulfonamides; Z88.8 Allergy status to other drugs, medicaments and biological substances; Z98.41 Cataract extraction status, right eye; Z98.42 Cataract extraction status, left eye; Z86.16 Personal history of COVID-19; Z95.1 Presence of aortocoronary bypass graft; R19.7 Diarrhea, unspecified
CPT/HCPCS: 36415; 71045; 80048; 80053; 80076; 83605; 83690; 83735; 84145; 84439; 84443; 85025; 85027; 85610; 85730; 86140; 87324; 87486; 87507; 87581; 87633; 87798; 93005; 96361; 96374; 96375; 99285; G0378; J0153; J1163; J2250

== ENCOUNTER 2025-04-22 09:27 | Day surgery (SDC) | payer MEDICARE, BC ==
[~2025-04-22] VITALS: Ht 154.9 cm; Wt 54.0 kg
[~2025-04-22 09:27] MED LIST changes: +FIDA200TA PO; -LEVOTHYROXINE 88 MCG TABLET (0.088 MG) PO SCH; +PANT-23 PO; +PRES10CA2 PO
[2025-04-22] MEDS ORDERED: LIDOCAINE 2% 100 MG/5 ML SDV (FOR ANES.) As Ordered ONE (10:18)
[2025-04-22] MEDS ORDERED: GLYCOPYRROLATE INJ 0.2 MG/ML 2 ML VIAL As Ordered ONE (10:18)
[2025-04-22 11:25] VITALS: TEMP 97.6
[2025-04-22 11:46] VITALS: BP 162/70; O2SAT 96
== END 2025-04-22 12:00 | disposition home or self-care (01) ==
LOC: M OPP 09:27
PROVIDERS: ATTEND Internal Medicine Gastroenterology
DX: K55.21 Angiodysplasia of colon with hemorrhage (principal); D50.0 Iron deficiency anemia secondary to blood loss (chronic); K57.30 Diverticulosis of large intestine without perforation or abscess without bleeding; K64.8 Other hemorrhoids; Z79.01 Long term (current) use of anticoagulants; K25.0 Acute gastric ulcer with hemorrhage; K31.811 Angiodysplasia of stomach and duodenum with bleeding; K57.10 Diverticulosis of small intestine without perforation or abscess without bleeding; T81.89XS Other complications of procedures, not elsewhere classified, sequela; I48.91 Unspecified atrial fibrillation; Z88.1 Allergy status to other antibiotic agents; Z88.2 Allergy status to sulfonamides; Z88.8 Allergy status to other drugs, medicaments and biological substances; Z79.899 Other long term (current) drug therapy; F17.210 Nicotine dependence, cigarettes, uncomplicated
CPT/HCPCS: 43239; 88305; G0105; J1596

== ENCOUNTER 2025-04-29 08:47 | Outpatient (CLI) | payer MEDICARE, BC ==
[~2025-04-29] VITALS: Ht 154.9 cm; Wt 57.3 kg
[~2025-04-29 08:47] MED LIST changes: +ALBUTEROL SULFATE 2.5 MG/0.5 ML INH CONCENTRATE NEB SOLN INH PRN; +EPINEPHrine INJ 1 MG/ML 1ML AMP IM PRN; +diphenhydrAMINE 50 MG/ML VIAL IV PRN
[2025-04-29 09:25] VITALS: BP 148/86; O2SAT 98
[2025-04-29] MEDS: IRON SUCROSE 200MG IVP IV ONE (09:58)
[2025-04-29 10:25] VITALS: BP 136/62; O2SAT 97
== END 2025-04-29 10:25 | disposition home or self-care (01) ==
LOC: M INFU 08:47
PROVIDERS: ATTEND Internal Medicine Medical Oncology
DX: D50.0 Iron deficiency anemia secondary to blood loss (chronic) (principal); Z88.1 Allergy status to other antibiotic agents; Z88.2 Allergy status to sulfonamides; Z88.8 Allergy status to other drugs, medicaments and biological substances
CPT/HCPCS: 96374; J1756

== ENCOUNTER 2025-05-08 13:35 | Outpatient (CLI) | payer MEDICARE, BC ==
[~2025-05-08] VITALS: Ht 154.9 cm; Wt 56.3 kg
[2025-05-08 13:45] VITALS: BP 165/77; O2SAT 97
[2025-05-08] MEDS: IRON SUCROSE 200MG IVP IV ONE (13:56)
[2025-05-08 14:20] VITALS: BP 148/83; O2SAT 97
== END 2025-05-08 14:20 ==
LOC: M INFU 13:35
PROVIDERS: ATTEND Internal Medicine Medical Oncology
DX: D50.0 Iron deficiency anemia secondary to blood loss (chronic) (principal); Z88.1 Allergy status to other antibiotic agents; Z88.2 Allergy status to sulfonamides; Z88.8 Allergy status to other drugs, medicaments and biological substances
CPT/HCPCS: 96374; J1756